=== PATIENT | female | born 1945 | race Caucasian/White ===

== ENCOUNTER → 2018-06-04 08:26 | Outpatient (CLI) | payer MEDICARE, BC, SELFPAY ==
[2018-06-04 09:25] LABS: Add Manual Diff / Slide Review NO; Basophils Percent Auto 0.7 % (0-2); Eosinophils Percent Auto 8.4 % (2-4); Hematocrit 40.7 % (36-46); Lymphocytes Percent Auto 37.2 % (25-40); Mean Corpuscular HGB Conc 34.5 % (30-36); Mean Corpuscular Hemoglobin 30.7 PG (26-34); Mean Corpuscular Volume 89.2 fL (80-100); Monocytes Percent Auto 6.4 % (3-14); Neutrophils Absolute Auto 3500 /uL (3000-5900); Neutrophils Percent Auto 47.3 % (50-75); Platelet Count 284 X10^3/uL (150-400); Red Blood Cell Count 4.57 X10^6/uL (4.0-5.2); Red Cell Distribution Width 13.2 % (11.6-14.8); White Blood Cell Count 7.5 X10^3/uL (4.5-11.0)
[2018-06-04 09:40] LABS: Hemoglobin A1C% w Est Avg Glu 7.7 % (4.0-6.0)
[2018-06-04 09:52] LABS: Alanine Aminotransferase 50 IU/L (9-52); Albumin 4.6 g/dL (3.5-5.0); Albumin Globulin Ratio 1.5 (1.0-2.8); Alkaline Phosphatase 79 U/L (38-126); Aspartate Aminotransferase 34 IU/L (14-36); BUN Creatinine Ratio 22.9 (6-22); Bilirubin Total 0.6 mg/dL (0.2-1.3); Blood Urea Nitrogen 16 mg/dL (7-17); Calcium 9.5 mg/dL (8.4-10.2); Carbon Dioxide 26 mmol/L (22-32); Chloride 102 mmol/L (98-107); Cholesterol 213 mg/dL (140-199); Estimated Glomerular Filt Rate > 60.0 mL/min (>60); Glucose 155 mg/dL (80-110); HDL Cholesterol 48 mg/dL (40-60); HEMOLYSIS 20 (0-50); LDL Cholesterol Calculated 111 mg/dL (<100); Potassium 4.1 mmol/L (3.4-5.1); Sodium 140 mmol/L (137-145); Total Protein 7.6 g/dL (6.3-8.2); Triglycerides 272 mg/dL (35-150)
[2018-06-04 10:16] LABS: Thyroid Stimulating Hormone 3.13 uIU/mL (0.47-4.68)
[2018-06-04 11:21] LABS: Microalbumin Urine Random 2.4 mg/dL (0-1.6)
[2018-06-04 11:22] LABS: Creatinine Urine Random 129 mg/dL; Microalbumi Creatinin Ratio Ur 18.6 ug/mg CR (<30)
== END ==
PROVIDERS: PCP Family Medicine; Visit Provider Family Medicine
DX: I10 Essential (primary) hypertension (principal); E78.00 Pure hypercholesterolemia, unspecified; E11.9 Type 2 diabetes mellitus without complications; E03.9 Hypothyroidism, unspecified
CPT/HCPCS: 36415; 80053; 80061; 82043; 82570; 83036; 84436; 84443; 85025

== ENCOUNTER → 2018-09-09 10:06 | Outpatient (CLI) | payer MEDICARE, BC, SELFPAY ==
[2018-09-09 11:09] LABS: Add Manual Diff / Slide Review NO; Basophils Percent Auto 0.6 % (0-2); Eosinophils Percent Auto 4.5 % (2-4); Hematocrit 42.7 % (36-46); Hemoglobin 14.5 g/dL (12.0-16.0); Lymphocytes Percent Auto 18.2 % (25-40); Mean Corpuscular HGB Conc 33.9 % (30-36); Mean Corpuscular Hemoglobin 30.2 PG (26-34); Mean Corpuscular Volume 89.2 fL (80-100); Monocytes Percent Auto 6.1 % (3-14); Neutrophils Absolute Auto 8400 /uL (3000-5900); Neutrophils Percent Auto 70.6 % (50-75); Platelet Count 263 X10^3/uL (150-400); Red Blood Cell Count 4.79 X10^6/uL (4.0-5.2); Red Cell Distribution Width 12.9 % (11.6-14.8); White Blood Cell Count 11.9 X10^3/uL (4.5-11.0)
[2018-09-09 11:28] LABS: Alanine Aminotransferase 30 IU/L (9-52); Albumin 4.6 g/dL (3.5-5.0); Albumin Globulin Ratio 1.8 (1.0-2.8); Alkaline Phosphatase 85 U/L (38-126); Aspartate Aminotransferase 21 IU/L (14-36); BUN Creatinine Ratio 25.7 (6-22); Bilirubin Total 0.5 mg/dL (0.2-1.3); Bilirubin Unconjugated 0.3 mg/dL (0.0-1.1); Blood Urea Nitrogen 18 mg/dL (7-17); Calcium 9.9 mg/dL (8.4-10.2); Carbon Dioxide 31 mmol/L (22-32); Chloride 99 mmol/L (98-107); Estimated Glomerular Filt Rate > 60.0 mL/min (>60); Globulin 2.6 g/dL (1.7-4.1); Glucose 121 mg/dL (80-110); HEMOLYSIS < 15 (0-50); Potassium 4.2 mmol/L (3.4-5.1); Sodium 139 mmol/L (137-145); Total Protein 7.2 g/dL (6.3-8.2)
== END ==
PROVIDERS: PCP Student in an Organized Health Care Education/Training Program; Visit Provider Podiatrist
DX: B35.1 Tinea unguium (principal)
CPT/HCPCS: 36415; 80048; 80076; 85025

== ENCOUNTER → 2018-09-13 09:14 | Outpatient (CLI) | payer MEDICARE, BC, SELFPAY ==
--- NOTE | 2018-09-13 09:19 | DI.US.S_ITS ---
ULTRASOUND OF LEFT BREAST: 09/13/2018 CLINICAL: Palpable left breast lump. Comparison is made to exams dated: 09/13/2018 mammogram, 09/13/2018 mammogram - [facility], 05/29/2016 mammogram, and 03/09/2015 mammogram - [facility] [place]. Color flow and real-time ultrasound of the left breast were performed on the areas of interest. Pack scale images of the real-time examination were reviewed. There is a round mass in the left breast at 10 o'clock posterior depth. This round mass is hypoechoic with posterior acoustic enhancement. This correlates as palpated and with mammography findings. IMPRESSION: BENIGN There is no sonographic evidence of malignancy. The round mass in the left breast is consistent with a sebaceous cyst and is benign. A 1 year screening mammogram is recommended. This exam was interpreted at Station ID: [id number]. Electronically Signed By: Isabel quiñones/:09/13/2018 13:09:18 letter sent: Normal Exam Ultrasound BI-RADS: 2 Benign
--- NOTE | 2018-09-13 09:19 | DI.MG.S_ITS ---
BILATERAL DIGITAL DIAGNOSTIC MAMMOGRAM 3D/2D: 09/13/2018 CLINICAL: Left breast mass. Comparison is made to exams dated: 05/29/2016 mammogram, 03/09/2015 mammogram, and 12/22/2014 mammogram - [facility]. There are scattered fibroglandular elements in both breasts. There is a round high density mass in the left breast at 10 o'clock posterior depth. This correlates as palpated. No other significant masses, calcifications, or other findings are seen in either breast. IMPRESSION: INCOMPLETE: NEEDS ADDITIONAL IMAGING EVALUATION The round high density mass in the left breast is indeterminate. An ultrasound is recommended. This exam was interpreted at Station ID: [id number]. NOTE: For mammograms, a report in lay terms will be sent to the patient. Approximately 15% of breast malignancies will not be visualized mammographically. In the management of a palpable breast mass, a negative mammogram must not discourage biopsy of a clinically suspicious lesion. Electronically Signed By: Isabel quiñones/nara:09/13/2018 10:03:23 letter sent: Additional Imaging Needed ACR BI-RADS Category 0: Incomplete 3340F
== END ==
PROVIDERS: PCP Student in an Organized Health Care Education/Training Program; Visit Provider Student in an Organized Health Care Education/Training Program
DX: R92.8 Other abnormal and inconclusive findings on diagnostic imaging of breast (principal); N60.82 Other benign mammary dysplasias of left breast
CPT/HCPCS: 76642; 77066; G0279

== ENCOUNTER → 2018-12-01 07:21 | Outpatient (CLI) | payer MEDICARE, SELFPAY ==
[2018-12-01 08:25] LABS: BUN Creatinine Ratio 28.6 (6-22); Blood Urea Nitrogen 20 mg/dL (7-17); Calcium 9.6 mg/dL (8.4-10.2); Carbon Dioxide 27 mmol/L (22-32); Chloride 100 mmol/L (98-107); Cholesterol 191 mg/dL (140-199); Estimated Glomerular Filt Rate > 60.0 mL/min (>60); Glucose 160 mg/dL (80-110); HDL Cholesterol 38 mg/dL (40-60); HEMOLYSIS < 15 (0-50); LDL Cholesterol Calculated 96 mg/dL (<100); Potassium 4.1 mmol/L (3.4-5.1); Sodium 139 mmol/L (137-145); Triglycerides 284 mg/dL (35-150)
[2018-12-01 08:28] LABS: Hemoglobin A1C% w Est Avg Glu 7.7 % (4.0-6.0)
[2018-12-01 08:57] LABS: Free T4, Direct Thyroxine 1.84 ng/dL (0.78-2.19); Vitamin D 25 Hydroxy (D3) 22.2 ng/mL (30.0-100.0)
[2018-12-01 09:11] LABS: Thyroid Stimulating Hormone 0.29 uIU/mL (0.47-4.68)
== END ==
PROVIDERS: PCP Student in an Organized Health Care Education/Training Program; Visit Provider Student in an Organized Health Care Education/Training Program
DX: E11.9 Type 2 diabetes mellitus without complications (principal); I10 Essential (primary) hypertension; E78.5 Hyperlipidemia, unspecified; E55.9 Vitamin D deficiency, unspecified; E03.9 Hypothyroidism, unspecified
CPT/HCPCS: 36415; 80048; 80061; 82306; 83036; 84439; 84443

== ENCOUNTER → 2019-03-03 09:30 | Outpatient (CLI) | payer MEDICARE, BC, SELFPAY | PROVIDERS: PCP Student in an Organized Health Care Education/Training Program; Visit Provider Student in an Organized Health Care Education/Training Program | DX: Z00.00 Encounter for general adult medical examination without abnormal findings (principal); Z78.0 Asymptomatic menopausal state; E11.9 Type 2 diabetes mellitus without complications; E06.3 Autoimmune thyroiditis; Z82.62 Family history of osteoporosis | CPT/HCPCS: 77080 ==

== ENCOUNTER → 2019-04-07 07:25 | Outpatient (CLI) | payer MEDICARE, BC, SELFPAY ==
[2019-04-07 09:02] LABS: Hemoglobin A1C% w Est Avg Glu 6.9 % (4.0-6.0)
[2019-04-07 09:17] LABS: Creatinine Urine Random 131.5 mg/dL
[2019-04-07 09:22] LABS: Microalbumi Creatinin Ratio Ur 20.5 ug/mg CR (<30); Microalbumin Urine Random 2.7 mg/dL (0-1.6)
[2019-04-07 09:23] LABS: Free T4, Direct Thyroxine 1.71 ng/dL (0.78-2.19)
[2019-04-07 09:37] LABS: Thyroid Stimulating Hormone 1.11 uIU/mL (0.47-4.68)
== END ==
PROVIDERS: PCP Student in an Organized Health Care Education/Training Program; Visit Provider Student in an Organized Health Care Education/Training Program
DX: E11.9 Type 2 diabetes mellitus without complications (principal); E03.9 Hypothyroidism, unspecified
CPT/HCPCS: 36415; 82043; 82570; 83036; 84439; 84443

== ENCOUNTER → 2019-10-07 07:35 | Outpatient (CLI) | payer MEDICARE, SELFPAY ==
--- NOTE | 2019-10-07 | DI.MG.S_ITS ---
BILATERAL DIGITAL SCREENING MAMMOGRAM 3D/2D WITH CAD: 10/07/2019 CLINICAL: Routine screening. Comparison is made to exams dated: 09/13/2018 mammogram, 09/13/2018 mammogram - [facility], and 05/29/2016 mammogram - [facility]. There are scattered fibroglandular elements in both breasts. Current study was also evaluated with a Computer Aided Detection (CAD) system. No significant masses, calcifications, or other findings are seen in either breast. There has been no significant interval change. IMPRESSION: NEGATIVE There is no mammographic evidence of malignancy. A 1 year screening mammogram is recommended. This exam was interpreted at Station ID: [id number]. NOTE: For mammograms, a report in lay terms will be sent to the patient. Approximately 15% of breast malignancies will not be visualized mammographically. In the management of a palpable breast mass, a negative mammogram must not discourage biopsy of a clinically suspicious lesion. Electronically Signed By: Camille ortiz/nara:10/07/2019 13:03:24 letter sent: Normal Exam ACR BI-RADS Category 1: Negative 3341F
== END ==
PROVIDERS: PCP Student in an Organized Health Care Education/Training Program; Visit Provider Student in an Organized Health Care Education/Training Program
DX: Z12.31 Encounter for screening mammogram for malignant neoplasm of breast (principal)
CPT/HCPCS: 77063; 77067

== ENCOUNTER → 2019-10-11 07:50 | Outpatient (CLI) | payer MEDICARE, SELFPAY ==
[2019-10-11 08:35] LABS: Hemoglobin A1C% w Est Avg Glu 7.4 % (4.0-6.0)
== END ==
PROVIDERS: PCP Student in an Organized Health Care Education/Training Program; Visit Provider Student in an Organized Health Care Education/Training Program
DX: E11.9 Type 2 diabetes mellitus without complications (principal)
CPT/HCPCS: 36415; 83036

== ENCOUNTER → 2020-03-19 07:35 | Outpatient (CLI) | payer MEDICARE, SELFPAY ==
[2020-03-19 09:34] LABS: Hemoglobin A1C% w Est Avg Glu 7.5 % (4.0-6.0)
[2020-03-19 10:26] LABS: TSH w/ Reflex to FT4 2.45 uIU/mL (0.47-4.68)
[2020-03-19 10:44] LABS: Vitamin B12 443 pg/mL (239-931)
== END ==
PROVIDERS: PCP Student in an Organized Health Care Education/Training Program; Referring Provider Student in an Organized Health Care Education/Training Program; Visit Provider Student in an Organized Health Care Education/Training Program
DX: E03.9 Hypothyroidism, unspecified (principal); E11.9 Type 2 diabetes mellitus without complications
CPT/HCPCS: 36415; 82607; 83036; 84443

== ENCOUNTER → 2020-04-03 13:38 | Outpatient (CLI) | payer MEDICARE, SELFPAY ==
[2020-04-05 17:52] LABS: COVID19 Sendout Not Detected (Not Detected)
== END ==
PROVIDERS: PCP Student in an Organized Health Care Education/Training Program; Visit Provider Family Medicine
DX: R05 Cough (principal)
CPT/HCPCS: 87635

== ENCOUNTER → 2020-07-12 13:24 | Outpatient (CLI) | payer MEDICARE, SELFPAY ==
[2020-07-12 14:36] LABS: Hemoglobin A1C% w Est Avg Glu 6.7 % (4.0-6.0)
== END ==
PROVIDERS: PCP Student in an Organized Health Care Education/Training Program; Referring Provider Student in an Organized Health Care Education/Training Program; Visit Provider Student in an Organized Health Care Education/Training Program
DX: E11.9 Type 2 diabetes mellitus without complications (principal)
CPT/HCPCS: 36415; 83036

== ENCOUNTER → 2020-11-14 11:12 | Outpatient (CLI) | payer MEDICARE, SELFPAY ==
--- NOTE | 2020-11-14 | DI.MG.S_ITS ---
BILATERAL DIGITAL SCREENING MAMMOGRAM 3D/2D WITH CAD: 11/14/2020 CLINICAL: Routine screening. Comparison is made to exams dated: 10/07/2019 mammogram, 09/13/2018 mammogram, and 09/13/2018 mammogram - [facility]. There are scattered fibroglandular elements in both breasts. Current study was also evaluated with a Computer Aided Detection (CAD) system. No significant masses, calcifications, or other findings are seen in either breast. There has been no significant interval change. IMPRESSION: NEGATIVE There is no mammographic evidence of malignancy. A 1 year screening mammogram is recommended. This exam was interpreted at Station ID: [id number]. NOTE: For mammograms, a report in lay terms will be sent to the patient. Approximately 15% of breast malignancies will not be visualized mammographically. In the management of a palpable breast mass, a negative mammogram must not discourage biopsy of a clinically suspicious lesion. Electronically Signed By: Humble choudhary/nara:11/14/2020 11:47:24 letter sent: Normal Exam ACR BI-RADS Category 1: Negative 3341F
== END ==
PROVIDERS: PCP Student in an Organized Health Care Education/Training Program; Referring Provider Student in an Organized Health Care Education/Training Program; Visit Provider Student in an Organized Health Care Education/Training Program
DX: Z12.31 Encounter for screening mammogram for malignant neoplasm of breast (principal)
CPT/HCPCS: 77063; 77067

== ENCOUNTER → 2021-01-29 07:53 | Outpatient (CLI) | payer MEDICARE, SELFPAY ==
[2021-01-29 08:49] LABS: Creatinine Urine Random 93.9 mg/dL
[2021-01-29 08:54] LABS: Microalbumi Creatinin Ratio Ur 60.7 ug/mg CR (<30); Microalbumin Urine Random 5.7 mg/dL (0-1.6)
[2021-01-29 08:59] LABS: Hemoglobin A1C% w Est Avg Glu 7.3 % (4.0-6.0)
[2021-01-29 09:02] LABS: BUN Creatinine Ratio 33.3 (6-22); Blood Urea Nitrogen 23 mg/dL (7-17); Calcium 9.9 mg/dL (8.4-10.2); Carbon Dioxide 28 mmol/L (22-32); Chloride 102 mmol/L (98-107); Estimated Glomerular Filt Rate > 60.0 mL/min (>60); Glucose 114 mg/dL (80-110); HEMOLYSIS 37 (0-50); Potassium 4.4 mmol/L (3.4-5.1); Sodium 136 mmol/L (137-145)
[2021-01-29 09:05] LABS: Vitamin D 25 Hydroxy (D3) 29.9 ng/mL (30.0-100.0)
== END ==
PROVIDERS: PCP Student in an Organized Health Care Education/Training Program; Referring Provider Student in an Organized Health Care Education/Training Program; Visit Provider Student in an Organized Health Care Education/Training Program
DX: E55.9 Vitamin D deficiency, unspecified (principal); E11.9 Type 2 diabetes mellitus without complications; I10 Essential (primary) hypertension
CPT/HCPCS: 36415; 80048; 82043; 82306; 82570; 83036

== ENCOUNTER → 2021-03-01 07:17 | Outpatient (CLI) | payer MEDICARE, SELFPAY ==
[2021-03-01 08:44] LABS: Creatinine Urine Random 60.1 mg/dL
[2021-03-01 08:48] LABS: Microalbumi Creatinin Ratio Ur 113.1 ug/mg CR (<30); Microalbumin Urine Random 6.8 mg/dL (0-1.6)
== END ==
PROVIDERS: PCP Student in an Organized Health Care Education/Training Program; Referring Provider Student in an Organized Health Care Education/Training Program; Visit Provider Student in an Organized Health Care Education/Training Program
DX: E11.9 Type 2 diabetes mellitus without complications (principal)
CPT/HCPCS: 82043; 82570

== ENCOUNTER → 2021-08-08 07:28 | Outpatient (CLI) | payer MEDICARE, SELFPAY ==
[2021-08-08 09:02] LABS: BUN Creatinine Ratio 29.7 (6-22); Blood Urea Nitrogen 22 mg/dL (7-17); Estimated Glomerular Filt Rate > 60.0 mL/min (>60)
[2021-08-08 09:15] LABS: Hemoglobin A1C% w Est Avg Glu 6.8 % (4.0-6.0)
== END ==
PROVIDERS: PCP Student in an Organized Health Care Education/Training Program; Referring Provider Student in an Organized Health Care Education/Training Program; Visit Provider Student in an Organized Health Care Education/Training Program
DX: E11.9 Type 2 diabetes mellitus without complications (principal); R80.9 Proteinuria, unspecified
CPT/HCPCS: 36415; 82565; 83036; 84520

== ENCOUNTER → 2021-10-30 07:02 | Outpatient (CLI) | payer MEDICARE, SELFPAY ==
[2021-10-30 08:27] LABS: Hemoglobin A1C% w Est Avg Glu 6.5 % (4.0-6.0)
[2021-10-30 09:07] LABS: Creatinine Urine Random 120.1 mg/dL
[2021-10-30 09:09] LABS: BUN Creatinine Ratio 24.7 (6-22); Blood Urea Nitrogen 19 mg/dL (7-17); Cholesterol 209 mg/dL (140-199); Estimated Glomerular Filt Rate > 60.0 mL/min (>60); HDL Cholesterol 47 mg/dL (40-60); LDL Cholesterol Calculated 110 mg/dL (<100); Triglycerides 262 mg/dL (35-150)
[2021-10-30 09:12] LABS: Microalbumi Creatinin Ratio Ur 137.3 ug/mg CR (<30); Microalbumin Urine Random 16.5 mg/dL (0-1.6)
== END ==
PROVIDERS: PCP Student in an Organized Health Care Education/Training Program; Referring Provider Student in an Organized Health Care Education/Training Program; Visit Provider Student in an Organized Health Care Education/Training Program
DX: E11.9 Type 2 diabetes mellitus without complications (principal); I10 Essential (primary) hypertension; E78.00 Pure hypercholesterolemia, unspecified
CPT/HCPCS: 36415; 80061; 82043; 82565; 82570; 83036; 84520

== ENCOUNTER → 2021-11-20 12:16 | Outpatient (CLI) | payer MEDICARE, SELFPAY ==
--- NOTE | 2021-11-20 12:17 | DI.MG.S_ITS ---
BILATERAL DIGITAL SCREENING MAMMOGRAM 3D/2D WITH CAD: 11/20/2021 CLINICAL: Routine screening. Comparison is made to exams dated: 11/14/2020 mammogram, 10/07/2019 mammogram, and 09/13/2018 mammogram - [facility]. There are scattered fibroglandular elements in both breasts. Current study was also evaluated with a Computer Aided Detection (CAD) system. No significant masses, calcifications, or other findings are seen in either breast. There has been no significant interval change. IMPRESSION: NEGATIVE There is no mammographic evidence of malignancy. A 1 year screening mammogram is recommended. This exam was interpreted at Station ID: [id number]. NOTE: For mammograms, a report in lay terms will be sent to the patient. Approximately 15% of breast malignancies will not be visualized mammographically. In the management of a palpable breast mass, a negative mammogram must not discourage biopsy of a clinically suspicious lesion. Electronically Signed By: Huang Moser M.D., jr/nara:11/20/2021 13:24:22 letter sent: Normal Exam ACR BI-RADS Category 1: Negative 3341F
== END ==
PROVIDERS: PCP Student in an Organized Health Care Education/Training Program; Referring Provider Student in an Organized Health Care Education/Training Program; Visit Provider Student in an Organized Health Care Education/Training Program
DX: Z12.31 Encounter for screening mammogram for malignant neoplasm of breast (principal)
CPT/HCPCS: 77063; 77067

== ENCOUNTER → 2022-05-09 06:49 | Outpatient (CLI) | payer MEDICARE, SELFPAY ==
[2022-05-09 07:49] LABS: Hemoglobin A1C% w Est Avg Glu 7.4 % (4.0-6.0)
[2022-05-09 07:53] LABS: Blood Urea Nitrogen 15 mg/dL (7-17); Estimated Glomerular Filt Rate > 60 mL/min (>60)
== END ==
PROVIDERS: PCP Student in an Organized Health Care Education/Training Program; Referring Provider Student in an Organized Health Care Education/Training Program; Visit Provider Student in an Organized Health Care Education/Training Program
DX: E11.9 Type 2 diabetes mellitus without complications (principal); I10 Essential (primary) hypertension; R80.9 Proteinuria, unspecified
CPT/HCPCS: 36415; 82565; 83036; 84520

== ENCOUNTER → 2022-07-30 14:55 | Outpatient (CLI) | payer MEDICARE, SELFPAY ==
[2022-07-30 16:18] LABS: Hemoglobin A1C% w Est Avg Glu 7.5 % (4.0-6.0)
[2022-07-30 16:49] LABS: TSH w/ Reflex to FT4 0.28 uIU/mL (0.47-4.68)
[2022-07-30 18:28] LABS: Creatinine Urine Random 111.4 mg/dL
[2022-07-30 18:30] LABS: Microalbumi Creatinin Ratio Ur 52.9 ug/mg CR (<30); Microalbumin Urine Random 5.9 mg/dL (0-1.6)
[2022-07-30 21:02] LABS: Free T4, Direct Thyroxine 1.58 ng/dL (0.78-2.19)
== END ==
PROVIDERS: PCP Student in an Organized Health Care Education/Training Program; Referring Provider Student in an Organized Health Care Education/Training Program; Visit Provider Student in an Organized Health Care Education/Training Program
DX: E11.9 Type 2 diabetes mellitus without complications (principal); E03.9 Hypothyroidism, unspecified; R80.9 Proteinuria, unspecified
CPT/HCPCS: 36415; 82043; 82570; 83036; 84439; 84443

== ENCOUNTER → 2022-09-25 08:57 | Outpatient (CLI) | payer MEDICARE, SELFPAY ==
[2022-09-25 10:54] LABS: Hemoglobin A1C% w Est Avg Glu 7.2 % (4.0-6.0)
[2022-09-25 10:55] LABS: BUN Creatinine Ratio 21.7 (6-22); Blood Urea Nitrogen 18 mg/dL (7-17); Estimated Glomerular Filt Rate > 60 mL/min (>60)
== END ==
PROVIDERS: PCP Student in an Organized Health Care Education/Training Program; Referring Provider Student in an Organized Health Care Education/Training Program; Visit Provider Student in an Organized Health Care Education/Training Program
DX: E11.9 Type 2 diabetes mellitus without complications (principal); R80.9 Proteinuria, unspecified
CPT/HCPCS: 36415; 82565; 83036; 84520

== ENCOUNTER → 2022-12-08 07:54 | Outpatient (CLI) | payer MEDICARE, SELFPAY ==
--- NOTE | 2022-12-08 | DI.MG.S_ITS ---
BILATERAL DIGITAL SCREENING MAMMOGRAM 3D/2D WITH CAD: 12/08/2022 CLINICAL: Routine screening. Comparison is made to exams dated: 11/20/2021 mammogram, 11/14/2020 mammogram, and 10/07/2019 mammogram - [facility]. There are scattered areas of fibroglandular density in both breasts (category b / 25%-50% glandular tissue). Current study was also evaluated with a Computer Aided Detection (CAD) system. No significant masses, calcifications, or other findings are seen in either breast. There has been no significant interval change. IMPRESSION: NEGATIVE There is no mammographic evidence of malignancy. A 1 year screening mammogram is recommended. Based on the Tyrer Cuzick model (a risk assessment model) the patient's lifetime risk is 3.6% and her 10 year risk is 0.0%. According to the ACR, ACS, and NCCN guidelines, an annual breast MRI exam along with mammogram is recommended if the patient's lifetime risk is 20% or greater. This exam was interpreted at Station ID: [id number]. NOTE: For mammograms, a report in lay terms will be sent to the patient. Approximately 15% of breast malignancies will not be visualized mammographically. In the management of a palpable breast mass, a negative mammogram must not discourage biopsy of a clinically suspicious lesion. Electronically Signed By: Carlos das/nara:12/08/2022 10:58:23 letter sent: Normal Exam ACR BI-RADS Category 1: Negative 3341F
== END ==
PROVIDERS: PCP Student in an Organized Health Care Education/Training Program; Referring Provider Student in an Organized Health Care Education/Training Program; Visit Provider Student in an Organized Health Care Education/Training Program
DX: Z12.31 Encounter for screening mammogram for malignant neoplasm of breast (principal)
CPT/HCPCS: 77063; 77067

== ENCOUNTER → 2023-01-15 11:13 | Outpatient (CLI) | payer MEDICARE, SELFPAY ==
--- NOTE | 2023-01-15 11:14 | DI.RAD.S_ITS ---
PROCEDURE: XR CHEST 2V INDICATIONS: Persistent cough; post-covid TECHNIQUE: 2 views of the chest were acquired. COMPARISON: None. FINDINGS: Surgical changes and devices: None. Lungs and pleura: Lungs are clear. No pleural effusions or pneumothorax. Mediastinum: Mediastinal contours are normal. Heart size is normal. Bones and chest wall: No suspicious bony abnormalities. Soft tissues appear unremarkable. IMPRESSION: No acute cardiopulmonary pathology. Dictated by: Victorino Barnett M.D. on 01/15/2023 at 13:51 Approved by: Victorino Barnett M.D. on 01/15/2023 at 13:54
== END ==
PROVIDERS: PCP Student in an Organized Health Care Education/Training Program; Referring Provider Student in an Organized Health Care Education/Training Program; Visit Provider Student in an Organized Health Care Education/Training Program
DX: R05.9 Cough, unspecified (principal); Z86.16 Personal history of COVID-19
CPT/HCPCS: 71046

== ENCOUNTER → 2023-02-24 07:06 | Outpatient (CLI) | payer MEDICARE, SELFPAY ==
[2023-02-24 08:43] LABS: Blood Urea Nitrogen 20 mg/dL (7-17); Estimated Glomerular Filt Rate > 60 mL/min (>60)
== END ==
PROVIDERS: PCP Student in an Organized Health Care Education/Training Program; Referring Provider Student in an Organized Health Care Education/Training Program; Visit Provider Student in an Organized Health Care Education/Training Program
DX: R80.9 Proteinuria, unspecified (principal); E11.9 Type 2 diabetes mellitus without complications
CPT/HCPCS: 36415; 82565; 83036; 84520

== ENCOUNTER → 2023-02-27 | Outpatient (CLI) | payer MEDICARE, SELFPAY ==
--- NOTE | 2023-02-17 12:33 | DI.DEXA.S_ITS ---
Indication: postmenopausal; screening for osteoporosis; Referring Provider: CHELY AMBRIZ Study: Bone densitometry was performed. Exam Date: February 27, 2023 Accession number: [id number] Bone Density: Region BMD T-score Z-score Classification AP Spine(L1-L4) 1.092 0.4 2.9 Normal Femoral Neck (Left) 0.781 -0.6 1.6 Normal Total Hip (Left) 0.947 0.0 1.9 Normal Femoral Neck (Right) 0.761 -0.8 1.4 Normal Total Hip (Right) 0.902 -0.3 1.6 Normal Total Hip Mean 0.925 -0.2 1.8 Normal World Health Organization criteria for BMD impression classify patients as: Normal (T-score at or above -1.0), Osteopenia (T-score between -1.0 and -2.5), or Osteoporosis (T-score at or below -2.5). 10-year Fracture Risk: FRAX not reported because: All T-scores for Spine Total, Hip Total, Femoral Neck at or above -1.0 Previous Exams: -- Region Exam Age BMD T-score BMD Change BMD Change Date g/cm2 vs Baseline vs Previous -- AP Spine (L1-L4) 02/27/2023 78 1.092 0.4 -0.094 (-7.9%)# -0.094 (-7.9%)# 03/03/2019 74 1.186 1.3 Total Hip(Left) 02/27/2023 78 0.947 0.0 -0.085 (-8.2%)# -0.085 (-8.2%)# 03/03/2019 74 1.032 0.7 Total Hip(Right) 02/27/2023 78 0.902 -0.3 -0.102 (-10.2%)# -0.102 (-10.2%)# 03/03/2019 74 1.004 0.5 -- *Denotes significance at 95% confidence level, LSC for AP Spine = 0.022 g/cm2, LSC for Total Hip = 0.027 g/cm2 # Denotes dissimilar scan types or analysis methods Impression: The patient has normal bone mass. No significant bone loss was observed. Discussion: BONE DENSITY IS ABOVE THE MINIMUM DESIRABLE LEVEL AT ALL SKELETAL SITES TESTED. This patient?s bone mineral density is above the minimum desirable level (T-score -1.0 or better) at all sites measured. The patient should follow a healthful lifestyle (good nutrition with adequate calcium and vitamin D, and appropriate weight-bearing exercise). Follow-Up: Consider repeating this study in 5 years or sooner if there is some new clinical indication. Reported by: HOOD WESTON M.D. on 02/27/2023 12:53:00 PM.
== END ==
LOC: RAD 12:20
PROVIDERS: PCP Student in an Organized Health Care Education/Training Program; Referring Provider Student in an Organized Health Care Education/Training Program; Visit Provider Student in an Organized Health Care Education/Training Program
DX: Z78.0 Asymptomatic menopausal state (principal); Z13.820 Encounter for screening for osteoporosis
CPT/HCPCS: 77080

== ENCOUNTER → 2023-08-27 14:19 | Outpatient (CLI) | payer MEDICARE, SELFPAY ==
[2023-08-27 15:36] LABS: Hemoglobin A1C% w Est Avg Glu 7.2 % (4.0-6.0)
[2023-08-27 15:50] LABS: Alanine Aminotransferase 33 IU/L (<35); Albumin 4.6 g/dL (3.5-5.0); Albumin Globulin Ratio 1.8 (1.0-2.8); Alkaline Phosphatase 86 U/L (38-126); Aspartate Aminotransferase 25 IU/L (14-36); BUN Creatinine Ratio 26.1 (6-22); Bilirubin Total 0.4 mg/dL (0.2-1.3); Blood Urea Nitrogen 23 mg/dL (7-17); Calcium 10.1 mg/dL (8.4-10.2); Carbon Dioxide 25 mmol/L (22-32); Chloride 100 mmol/L (98-107); Cholesterol 212 mg/dL (140-199); Estimated Glomerular Filt Rate > 60 mL/min (>60); Globulin 2.6 g/dL (1.7-4.1); Glucose 97 mg/dL (80-110); HDL Cholesterol 44 mg/dL (40-60); HEMOLYSIS < 15 (0-50); LDL Cholesterol Calculated 106 mg/dL (<100); Potassium 4.3 mmol/L (3.4-5.1); Sodium 137 mmol/L (137-145); Total Protein 7.2 g/dL (6.3-8.2); Triglycerides 310 mg/dL (35-150)
[2023-08-27 16:02] LABS: Free T4, Direct Thyroxine 1.46 ng/dL (0.78-2.19)
[2023-08-27 16:16] LABS: Thyroid Stimulating Hormone 0.089 uIU/mL (0.47-4.68)
[2023-08-27 17:30] LABS: Creatinine Urine Random 82.5 mg/dL
[2023-08-27 17:34] LABS: Microalbumi Creatinin Ratio Ur 16.9 ug/mg CR (<30); Microalbumin Urine Random 1.4 mg/dL (0-1.6)
== END ==
PROVIDERS: PCP Family Medicine; Referring Provider Student in an Organized Health Care Education/Training Program; Visit Provider Student in an Organized Health Care Education/Training Program
DX: E11.9 Type 2 diabetes mellitus without complications (principal); E78.00 Pure hypercholesterolemia, unspecified; I10 Essential (primary) hypertension; R80.9 Proteinuria, unspecified; E03.9 Hypothyroidism, unspecified
CPT/HCPCS: 36415; 80053; 80061; 82043; 82570; 83036; 84439; 84443

== ENCOUNTER → 2023-12-11 13:13 | Outpatient (CLI) | payer MEDICARE, SELFPAY ==
--- NOTE | 2023-12-11 13:15 | DI.MG.S_ITS ---
BILATERAL DIGITAL SCREENING MAMMOGRAM 3D/2D WITH CAD: 12/11/2023 CLINICAL: Routine screening. Comparison is made to exams dated: 12/08/2022 mammogram, 11/20/2021 mammogram, 11/14/2020 mammogram, and 10/07/2019 mammogram - [facility]. There are scattered areas of fibroglandular density in both breasts (category b / 25%-50% glandular tissue). Current study was also evaluated with a Computer Aided Detection (CAD) system. No significant masses, calcifications, or other findings are seen in either breast. There has been no significant interval change. IMPRESSION: NEGATIVE There is no mammographic evidence of malignancy. A 1 year screening mammogram is recommended. Based on the Tyrer Cuzick model (a risk assessment model) the patient's lifetime risk is 3.3% and her 10 year risk is 0.0%. According to the ACR, ACS, and NCCN guidelines, an annual breast MRI exam along with mammogram is recommended if the patient's lifetime risk is 20% or greater. This exam was interpreted at Station ID: [id number]. NOTE: For mammograms, a report in lay terms will be sent to the patient. Approximately 15% of breast malignancies will not be visualized mammographically. In the management of a palpable breast mass, a negative mammogram must not discourage biopsy of a clinically suspicious lesion. Electronically Signed By: Jack baker/nara:12/11/2023 16:54:36 letter sent: Normal Exam ACR BI-RADS Category 1: Negative 3341F
== END ==
LOC: MAMMO 13:13
PROVIDERS: PCP Family Medicine; Referring Provider Family Medicine; Visit Provider Family Medicine
DX: Z12.31 Encounter for screening mammogram for malignant neoplasm of breast (principal); R92.323 Mammographic fibroglandular density, bilateral breasts
CPT/HCPCS: 77063; 77067

== ENCOUNTER → 2024-03-04 06:45 | Outpatient (CLI) | payer MEDICARE, SELFPAY ==
[2024-03-04 07:53] LABS: Add Manual Diff / Slide Review NO; Basophils Absolute Auto 100 /uL (0-100); Basophils Percent Auto 0.8 % (0-2); Eosinophils Absolute Auto 300 /uL (0-450); Eosinophils Percent Auto 4.6 % (2-4); Hematocrit 39.9 % (36-46); Hemoglobin 13.4 g/dL (12.0-16.0); Lymphocytes Absolute Auto 2100 /uL (1100-4500); Lymphocytes Percent Auto 28.2 % (25-40); Mean Corpuscular HGB Conc 33.7 % (30-36); Mean Corpuscular Hemoglobin 30.4 PG (26-34); Mean Corpuscular Volume 90.1 fL (80-100); Monocytes Absolute Auto 600 /uL (0-900); Monocytes Percent Auto 8.1 % (3-14); Neutrophils Absolute Auto 4300 /uL (1500-7000); Neutrophils Percent Auto 58.3 % (50-75); Platelet Count 280 X10^3/uL (150-400); Red Blood Cell Count 4.42 X10^6/uL (4.0-5.2); Red Cell Distribution Width 13.2 % (11.6-14.8); White Blood Cell Count 7.5 X10^3/uL (4.5-11.0)
[2024-03-04 08:17] LABS: Creatinine Urine Random 111.1 mg/dL
[2024-03-04 08:17] LABS: Alanine Aminotransferase 28 IU/L (<35); Albumin 4.3 g/dL (3.5-5.0); Albumin Globulin Ratio 1.5 (1.0-2.8); Alkaline Phosphatase 69 U/L (38-126); Aspartate Aminotransferase 27 IU/L (14-36); Bilirubin Total 0.7 mg/dL (0.2-1.3); Blood Urea Nitrogen 19 mg/dL (7-17); Calcium 9.4 mg/dL (8.4-10.2); Carbon Dioxide 25 mmol/L (22-32); Chloride 105 mmol/L (98-107); Cholesterol 180 mg/dL (140-199); Estimated Glomerular Filt Rate > 60 mL/min (>60); Globulin 2.9 g/dL (1.7-4.1); Glucose 116 mg/dL (80-110); HDL Cholesterol 41 mg/dL (40-60); HEMOLYSIS 25 (0-50); LDL Cholesterol Calculated 93 mg/dL (<100); Potassium 3.8 mmol/L (3.4-5.1); Sodium 138 mmol/L (137-145); Total Protein 7.2 g/dL (6.3-8.2); Triglycerides 229 mg/dL (35-150)
[2024-03-04 08:35] LABS: Microalbumi Creatinin Ratio Ur 40.5 ug/mg CR (<30); Microalbumin Urine Random 4.5 mg/dL (0-1.6)
[2024-03-04 09:24] LABS: TSH w/ Reflex to FT4 0.02 uIU/mL (0.47-4.68)
== END ==
PROVIDERS: PCP Family Medicine; Referring Provider Family Medicine; Visit Provider Family Medicine
DX: R80.9 Proteinuria, unspecified (principal); E11.9 Type 2 diabetes mellitus without complications; I10 Essential (primary) hypertension; E03.9 Hypothyroidism, unspecified; E78.00 Pure hypercholesterolemia, unspecified
CPT/HCPCS: 36415; 80053; 80061; 82043; 82570; 83036; 84439; 84443; 85025

== ENCOUNTER → 2024-09-24 08:18 | Outpatient (CLI) | payer MEDICARE, SELFPAY ==
[2024-09-24 10:12] LABS: Cholesterol 211 mg/dL (140-199); HDL Cholesterol 45 mg/dL (40-60); LDL Cholesterol Calculated 106 mg/dL (<100); Triglycerides 301 mg/dL (35-150)
[2024-09-24 10:43] LABS: Thyroid Stimulating Hormone 0.067 uIU/mL (0.47-4.68)
== END ==
PROVIDERS: PCP Family Medicine; Referring Provider Family Medicine; Visit Provider Family Medicine
DX: E03.9 Hypothyroidism, unspecified (principal); E78.00 Pure hypercholesterolemia, unspecified; E11.9 Type 2 diabetes mellitus without complications
CPT/HCPCS: 36415; 80061; 84436; 84443

== ENCOUNTER 2024-10-02 10:53 | Emergency (ER) | payer MEDICARE, SELFPAY ==
[2024-10-02 11:04] VITALS: BP 148/65; PULSE 57; RESP 17; TEMP 36.7; O2SAT 95; BMI 28.3
[2024-10-02] MEDS: ONDANSETRON 4 MG ODT SL (11:11)
[2024-10-02 11:32] LABS: Bacteria Urine Many (>30); RBC Urine 5-10/HPF (0-5/HPF); Urine Volume 10mL (spun); WBC Urine >100/HPF (0-5/HPF)
[2024-10-02 11:33] LABS: Culture Indicated Urine Specimen Cultured; Squamous Epithelial Cell Urine None Seen (0-5/HPF)
--- NOTE | 2024-10-02 11:44 | ED.BACK ---
HPI - Back Pain/Injury <Tari Jaimes PA-C - Last Filed: 10/02/24 19:38> General Chief Complaint: Back Pain/Injury Stated Complaint: back hurting so bad its making her throw up Time Seen by Provider: 10/02/24 11:43 Source: patient History of Present Illness HPI Narrative: Ms. Yi is a pleasant 79-year-old female with a past medical history of vhh-zvypuoa-sufquwojo type 2 diabetes, hypertension, hyperlipidemia, hypothyroidism who presents to the emergency department for right-sided flank pain since this morning. She is concerned for a bladder or kidney infection. Denies similar pain in the past. Describes right-sided flank pain that is constant and severe. She feels nauseous and has vomitted because of the pain. Denies dysuria, abdominal pain, hematuria, chest pain, shortness of breath, change in bowel movements. No back trauma or lower extremity numbness/tingling. Her PCP is Dr. Light. Related Data Home Medications Medication Instructions Recorded Confirmed glipizide 5 mg tablet, extended 5 mg PO DAILY 10/04/24 10/04/24 release 24 hr Previous Rx's Medication Instructions Recorded blood-glucose transmitter (Dexcom #1 ea 08/07/21 G6 Transmitter device) blood-glucose meter,continuous #1 ea 09/30/22 (Dexcom G6 Cancer Genetics Assistant) blood-glucose sensor (Dexcom G6 #3 ea 12/14/23 Sensor device) albuterol sulfate 90 mcg/actuation 2 puff inhalation Q2-4H PRN 03/10/24 aerosol inhaler shortness of breath or wheezing #6.7 grams glipizide 5 mg tablet, extended 5 mg PO DAILY #90 tabs 07/01/24 release 24 hr metformin 1,000 mg tablet 1,000 mg PO BIDCC #180 tabs 07/01/24 atorvastatin 40 mg tablet 40 mg PO HS #90 tabs 09/14/24 lisinopril 20 1 tab PO QDAY #90 tabs 09/14/24 mg-hydrochlorothiazide 12.5 mg tablet levothyroxine 112 mcg tablet 112 mcg PO QDAY #90 tabs 09/27/24 hydrocodone 5 mg-acetaminophen 325 1 tab PO Q6H PRN pain (scale score 10/02/24 mg tablet 7-10) #8 tabs ibuprofen 600 mg tablet 600 mg PO Q8H PRN pain #21 tabs 10/02/24 ondansetron 4 mg disintegrating 4 mg PO Q8H PRN nausea and 10/02/24 tablet vomiting #15 tabs levofloxacin 500 mg tablet 500 mg PO DAILY #14 tabs 10/04/24 tamsulosin 0.4 mg capsule 0.4 mg PO DAILY #30 caps 10/04/24 Allergies Allergy/AdvReac Type Severity Reaction Status Date / Time No Known Drug Allergies Allergy Verified 10/04/24 16:05 Review of Systems <Tari Jaimes PA-C - Last Filed: 10/02/24 19:38> Review of Systems ROS Unobtainable: All systems reviewed & are unremarkable except as noted in HPI and below Patient History <Tari Jaimes PA-C - Last Filed: 10/02/24 19:38> Medical History COVID-19 (~12/2022) GERD (gastroesophageal reflux disease) (Unknown) Pneumonia (Unknown) Chronic cough (Unknown) Migraines (2002) Chronic back pain (Unknown) Anemia (1959) Chickenpox (194) Herpes (1984) Measles Mumps (1951) Rubella (1951) History of recurrent ear infection (Unknown) Cataracts, bilateral (Unknown) Heavy menstrual period (Unknown) Fibroids (1978) Pancreatitis (1967) Type 2 diabetes mellitus without complication, without long-term current use of insulin (10/14/16) Pure hypercholesterolemia (10/14/16) Acquired hypothyroidism (10/14/16) Essential hypertension (10/14/16) Surgical History Status post delivery (1978) Family History Brother Age: 74 Hypertension Pre-diabetes Brother Age: 61 Diabetes mellitus Hypertension Child Age: 44 Pre-diabetes Mother Mental and behavioral problem Grandfather Diabetes mellitus Heart disease Hypertension Grandmother Heart disease Sister Age: 81 Diabetes mellitus Sister Age: 79 Pre-diabetes Father Diabetes mellitus Social History household members: family Smoking Status: Never smoker alcohol intake: current Smoking Status: Never smoker alcohol intake frequency: 0-2 drinks per day Substance Use Type: does not use Exam <Tari Jaimes PA-C - Last Filed: 10/02/24 19:38> Narrative Exam Narrative: GENERAL: 79 year old patient appears stated age. Well-developed patient, in mild distress. HEAD: Atraumatic. Normocephalic. EYES: Extraocular motions intact. No scleral icterus. No injection or drainage. ENT: Nose without bleeding, purulent drainage. Airway patent. NECK: Trachea midline. Non tender CARDIOVASCULAR: Regular rate and rhythm. RESPIRATORY: Clear to auscultation. Nonlabored respirations. Speaking in full clear sentences. GASTROINTESTINAL: Subjective right flank pain, negative CVA tenderness. Abdomen soft, non-tender, nondistended. No rebound or guarding. + Bowel sounds. EXTREMITIES: No edema or joint tenderness. BACK: Nontender without deformity or crepitance. No flank tenderness. NEURO: AOx3. Ambulates with steady gait. SKIN: No rash or erythema of visible areas Initial Vital Signs Initial Vital Signs: Vital Signs Temperature 98.1 F 10/02/24 11:04 Pulse Rate 57 L 10/02/24 11:04 Respiratory Rate 17 10/02/24 11:04 Blood Pressure 148/65 H 10/02/24 11:04 Pulse Oximetry 95 10/02/24 11:04 Oxygen Delivery Method Room Air 10/02/24 11:04 <Thea Nguyen DO - Last Filed: 10/09/24 07:21> Initial Vital Signs Initial Vital Signs: Vital Signs Temperature 98.1 F 10/02/24 11:04 Pulse Rate 57 L 10/02/24 11:04 Respiratory Rate 17 10/02/24 11:04 Blood Pressure 148/65 H 10/02/24 11:04 Pulse Oximetry 95 10/02/24 11:04 Oxygen Delivery Method Room Air 10/02/24 11:04 Course <Tair Jaimes PA-C - Last Filed: 10/02/24 19:38> Course Course Narrative: Discussed case with Dr. Nguyne given abnormal CT findings. We will add on lactic, pelvic ultrasound, IV fluids, Rocephin and re-evaluate. Orders Ordered: Discontinued Medications Sodium Chloride (Normal Saline 0.9%) 1,000 mls @ 1,000 mls/hr IV BOLUS ONE Stop: 10/02/24 12:50 Last Admin: 10/02/24 13:19 Dose: Not Given Documented By: TRICE Ceftriaxone Sodium 1,000 mg/ (Sodium Chloride) 100 mls @ 200 mls/hr IV NOW ONE Stop: 10/02/24 14:20 Last Infusion: 10/02/24 15:05 Dose: Infused Documented By: Admin: 10/02/24 14:35 Dose: 200 mls/hr Documented By: TRICE Ketorolac Tromethamine (Ketorolac 30 Mg/Ml Vial) 15 mg IV NOW ONE Stop: 10/02/24 11:52 Last Admin: 10/02/24 13:20 Dose: 15 mg Documented By: TRICE Ondansetron HCl (Ondansetron 4 Mg/2 Ml Inj) 4 mg IV NOW PRN PRN Reason: Nausea And Vomiting Ondansetron HCl (Ondansetron 4 Mg Odt) 4 mg SL NOW PRN PRN Reason: Nausea And Vomiting Last Admin: 10/02/24 11:11 Dose: 4 mg Documented By: TRICE Consultations Consultation #1: Discussed pelvic mass findings with OBGYN on-call Dr. Webber. She will have her office nurses call the patient tomorrow to schedule an appointment. Vital Signs Vital signs: Vital Signs - 8 hr 10/02/24 14:26 10/02/24 16:51 Pulse Rate 95 H 89 Respiratory Rate 17 17 Blood Pressure 143/65 H 128/62 Pulse Oximetry 94 94 Oxygen Delivery Method Room Air Room Air <Thea Nguyen DO - Last Filed: 10/09/24 07:21> Orders Ordered: Discontinued Medications Sodium Chloride (Normal Saline 0.9%) 1,000 mls @ 1,000 mls/hr IV BOLUS ONE Stop: 10/02/24 12:50 Last Admin: 10/02/24 13:19 Dose: Not Given Documented By: TRICE Ceftriaxone Sodium 1,000 mg/ (Sodium Chloride) 100 mls @ 200 mls/hr IV NOW ONE Stop: 10/02/24 14:20 Last Infusion: 10/02/24 15:05 Dose: Infused Documented By: Admin: 10/02/24 14:35 Dose: 200 mls/hr Documented By: TRICE Ketorolac Tromethamine (Ketorolac 30 Mg/Ml Vial) 15 mg IV NOW ONE Stop: 10/02/24 11:52 Last Admin: 10/02/24 13:20 Dose: 15 mg Documented By: TRICE Ondansetron HCl (Ondansetron 4 Mg/2 Ml Inj) 4 mg IV NOW PRN PRN Reason: Nausea And Vomiting Ondansetron HCl (Ondansetron 4 Mg Odt) 4 mg SL NOW PRN PRN Reason: Nausea And Vomiting Last Admin: 10/02/24 11:11 Dose: 4 mg Documented By: TRICE Vital Signs Vital signs: Vital Signs - 8 hr 10/02/24 14:26 10/02/24 16:51 Pulse Rate 95 H 89 Respiratory Rate 17 17 Blood Pressure 143/65 H 128/62 Pulse Oximetry 94 94 Oxygen Delivery Method Room Air Room Air MDM - Back Pain/Injury <Tari Jaimes PA-C - Last Filed: 10/02/24 19:38> Lab Data Attestation: I reviewed the patient's lab results. 10/02/24 12:29 10/02/24 12:29 Labs: Lab Results 10/02/24 10/02/24 Range/Units 11:14 12:29 WBC 16.3 H (4.5-11.0) X10^3/uL RBC 4.65 (4.0-5.2) X10^6/uL Hgb 14.1 (12.0-16.0) g/dL Hct 42.2 (36-46) % MCV 90.6 (80-100) fL MCH 30.4 (26-34) PG MCHC 33.5 (30-36) % RDW 13.2 (11.6-14.8) % Plt Count 265 (150-400) X10^3/uL Neut % (Auto) 85.1 H (50-75) % Lymph % (Auto) 8.2 L (25-40) % [place] % (Auto) 5.3 (3-14) % Eos % (Auto) 0.9 L (2-4) % Baso % (Auto) 0.5 (0-2) % Neut # (Auto) 48465 H (6200-0204) /uL Lymph # (Auto) 1300 (3017-0657) /uL [place] # (Auto) 900 (0-900) /uL Eos # (Auto) 100 (0-450) /uL Baso # (Auto) 100 (0-100) /uL Sodium 136 L (137-145) mmol/L Potassium 4.4 (3.4-5.1) mmol/L Chloride 98 (98-107) mmol/L Carbon Dioxide 31 (22-32) mmol/L BUN 15 (7-17) mg/dL Creatinine 0.96 (0.52-1.04) mg/dL Estimated GFR > 60 (>60) mL/min BUN/Creatinine Ratio 15.6 (6-22) Glucose 187 H (80-110) mg/dL Lactate 1.4 (0.7-2.1) mmol/L Calcium 10.1 (8.4-10.2) mg/dL Total Bilirubin 0.6 (0.2-1.3) mg/dL AST 29 (14-36) IU/L ALT 44 H (<35) IU/L Alkaline Phosphatase 94 (38-126) U/L Total Protein 7.8 (6.3-8.2) g/dL Albumin 4.7 (3.5-5.0) g/dL Globulin 3.1 (1.7-4.1) g/dL Albumin/Globulin Ratio 1.5 (1.0-2.8) Lipase 99 (23-300) U/L Urine RBC 5-10/hpf H (0-5/HPF) Urine WBC >100/hpf H (0-5/HPF) Ur Squamous Epith Cells None seen (0-5/HPF) Urine Bacteria Many (>30) H (None) Ur Culture Indicated? Specimen cultured Vol Urine Centrifuged 10ml (spun) Urine Dip Bedside Urine Glucose 100 mg/dl Bedside Urine Bilirubin - Negative Bedside Urine Ketone - Negative Urine Specific [place] 1.025 Bedside Urine Occult Blood +++ Bedside Urine pH 6.0 Bedside Urine Protein ++ 100 Bedside Urine Urobilinogen - Negative Bedside Urine Nitrite - Negative Bedside Urine Leukocytes +++ [address] scan - abdomen/pelvis: My Impression: Defer to radiologist impression documented below. Radiologist's Impression: IMPRESSION: 1. 1.6 x 1.8 cm right UPJ stone with moderate right-sided hydronephrosis and right perinephric fat stranding. There is also mild right-sided hydroureter with adjacent periureteral fat stranding extending to the level of right UVJ without obstructing ureteral stone. Superimposed right-sided pyelonephritis cannot be excluded. 2. Normal appearing left kidney and left ureter. Normal appearing urinary bladder. 3. Bulky appearing bilateral ovaries with multiple cystic areas concerning for large ovarian cysts versus tubal ovarian abscess, suggest clinical correlation and ultrasound of pelvis follow-up. 4. Hepatic steatosis. 2.9 x 2.3 cm right hepatic lobe lesion as described above and may represent hemangioma. Non urgent follow-up MR study without and with contrast can be done for further evaluation of this region. 5. No bowel obstruction or abnormal bowel wall thickening. No free fluid or free air. Pelvic US: My Impression: Defer to radiologist impression. Radiologist's Impression: FINDINGS: Uterus: Uterus is anteverted and normal in size at 5.2 x 3.4 x 5.3 cm. The myometrium is homogeneous. The endometrium measures 4.3 mm combined thickness. No discrete endometrial mass or fluid. Ovaries: The ovaries are not well seen on this study. 9.8 x 4.1 x 8.2 cm complex cystic structure is noted in midline abdomen and show internal vascularity. Other: No pathologic free abdominal or pelvic fluid. IMPRESSION: 1. Complex cystic structure in pelvis with internal septation and vascularity. Correlate with CT findings , finding may represent a large cystic neoplasm and measures 9.8 x 4.1 x 8.2 cm in size. Billet Grinder correlation is recommended. No normal ovary is identified. Finding is not typical for tubo-ovarian abscess. 2. Normal appearing uterus and endometrium. [facility] Narrative Medical decision making narrative: 79-year-old female with a past medical history of zrb-zecaish-zskbnbdcb type 2 diabetes, hypertension, hyperlipidemia, hypothyroidism who presents to the emergency department for right-sided flank pain since this morning. Differential diagnosis includes but is not limited to pyelonephritis, ureterolithiasis, nephrolithiasis, hydronephrosis, ERNESTO, UTI, cystitis, etc. On exam patient is in mild distress secondary to nausea/vomiting and right flank pain. She is afebrile and not tachycardic. She has subjective severe pain of the right flank however negative CVA tenderness. We will obtain urinalysis, CBC, CMP, CT abdomen and pelvis with IV contrast and treat with Zofran and Toradol at this time, concerned for pyelonephritis. Patient's workup reveals elevated WBC count of 16.3. Normal hemoglobin 14.1, BUN 15, creatinine 0.96. Lipase within normal limits and lactate within normal limits. Urinalysis reveals greater than 100 white blood cells and many bacteria. Patient's abdominal CT scan reveals large 1.6 x 1.8 cm right UPJ stone with moderate right-sided hydronephrosis and right perinephric fat stranding. There is also mild right hydro ureter. Superimposed right-sided pyelonephritis can not be excluded. She was therefore treated with 1 g of IV ceftriaxone. CT scan also reveals bulky appearing bilateral ovaries with multiple cystic areas concerning for large ovarian cyst versus TOA so a pelvic ultrasound was obtained revealing a large pelvic mass 9.8 x 4.1 x 8.2 cm. I discussed case with OBGYN on-call, OBGYN office will call patient to schedule outpatient follow up appointment for this mass. Imaging also revealed 2.9 x 2.3 cm right hepatic lobe lesion, patient and her daughter aware that she should follow-up with nonemergent MRI for further evaluation of this lesion. Patient offered admission given large UPJ stone that will require intervention in addition to UTI however patient's pain is resolved and she would prefer to follow up with Urology outpatient. Patient's vital signs are within normal limits, her lactic acid is normal, and her symptoms have resolved therefore I am agreeable to outpatient management. She was prescribed cefpodoxime for pyelonephritis in addition to Zofran if needed for nausea, ibuprofen and hydrocodone for pain, and Flomax. She was provided with information call Urology tomorrow morning. She is also aware that she will be receiving a call to schedule an appointment with OBGYN. Advised she call her PCP tomorrow as well for a follow-up appointment and to schedule MRI for liver lesion. I discussed the plan and all imaging findings, including incidentals, with both the patient and her daughter Sasha. They are agreeable to the plan, all questions answered. We discussed STRICT ER return precautions. Patient is stable for discharge at this time. <Thea Nguyen, DO - Last Filed: 10/09/24 07:21> Lab Data Labs: Lab Results 10/02/24 10/02/24 Range/Units 11:14 12:29 WBC 16.3 H (4.5-11.0) X10^3/uL RBC 4.65 (4.0-5.2) X10^6/uL Hgb 14.1 (12.0-16.0) g/dL Hct 42.2 (36-46) % MCV 90.6 (80-100) fL MCH 30.4 (26-34) PG MCHC 33.5 (30-36) % RDW 13.2 (11.6-14.8) % Plt Count 265 (150-400) X10^3/uL Neut % (Auto) 85.1 H (50-75) % Lymph % (Auto) 8.2 L (25-40) % [place] % (Auto) 5.3 (3-14) % Eos % (Auto) 0.9 L (2-4) % Baso % (Auto) 0.5 (0-2) % Neut # (Auto) 90722 H (4595-4668) /uL Lymph # (Auto) 1300 (8641-4056) /uL [place] # (Auto) 900 (0-900) /uL Eos # (Auto) 100 (0-450) /uL Baso # (Auto) 100 (0-100) /uL Sodium 136 L (137-145) mmol/L Potassium 4.4 (3.4-5.1) mmol/L Chloride 98 (98-107) mmol/L Carbon Dioxide 31 (22-32) mmol/L BUN 15 (7-17) mg/dL Creatinine 0.96 (0.52-1.04) mg/dL Estimated GFR > 60 (>60) mL/min BUN/Creatinine Ratio 15.6 (6-22) Glucose 187 H (80-110) mg/dL Lactate 1.4 (0.7-2.1) mmol/L Calcium 10.1 (8.4-10.2) mg/dL Total Bilirubin 0.6 (0.2-1.3) mg/dL AST 29 (14-36) IU/L ALT 44 H (<35) IU/L Alkaline Phosphatase 94 (38-126) U/L Total Protein 7.8 (6.3-8.2) g/dL Albumin 4.7 (3.5-5.0) g/dL Globulin 3.1 (1.7-4.1) g/dL Albumin/Globulin Ratio 1.5 (1.0-2.8) Lipase 99 (23-300) U/L Urine RBC 5-10/hpf H (0-5/HPF) Urine WBC >100/hpf H (0-5/HPF) Ur Squamous Epith Cells None seen (0-5/HPF) Urine Bacteria Many (>30) H (None) Ur Culture Indicated? Specimen cultured Vol Urine Centrifuged 10ml (spun) Urine Dip Bedside Urine Glucose 100 mg/dl Bedside Urine Bilirubin - Negative Bedside Urine Ketone - Negative Urine Specific [place] 1.025 Bedside Urine Occult Blood +++ Bedside Urine pH 6.0 Bedside Urine Protein ++ 100 Bedside Urine Urobilinogen - Negative Bedside Urine Nitrite - Negative Bedside Urine Leukocytes +++ 500 Esterase Discharge Plan Departure Patient Disposition: Home Clinical Impression: Obstruction of right ureteropelvic junction (UPJ) due to stone, Pyelonephritis of right kidney, Pelvic mass Instructions: DI for Kidney Stones Activity Restrictions/Additional Instructions: Today you were evaluated for right-sided back pain. Your workup revealed a very large right-sided kidney stone, a urinary tract infection that has spread to the kidney, in addition to an incidental finding of a large pelvic mass. In addition, a lesion was found in your liver and you should have a nonemergent MRI of your liver performed by her primary care doctor. You need to call to schedule an appointment with a urologist (Dr. Sanchez or Dr. Ferro) here at [facility] for further management of your large kidney stone. Please call [phone] first thing tomorrow morning. Our OBGYN office will call to schedule appointment with you regarding your pelvic mass. Call your primary care doctor tomorrow morning in addition to the urologist office. Return to the emergency department immediately if you develop fevers, chills, inability to urinate, vomiting preventing you from keeping down your medications, or any other concerns. You have been prescribed a short course of narcotic medications. These are potentially dangerous and addictive medications that should be used carefully. While on these medications you cannot drive or operate heavy machinery. Additionally, you cannot sign legal documents or perform any duties such as this. Many people get constipated on narcotic medications so it would be advisable to discuss stool softeners with the pharmacist when you picker box operator your prescription. Please understand that we cannot provide further refills of narcotics or controlled substances through the ED and your pain management will need to be through your Primary Care Provider Prescriptions: New ibuprofen 600 mg tablet 600 mg PO Q8H PRN (Reason: pain) Qty: 21 0RF ondansetron 4 mg tablet,disintegrating 4 mg PO Q8H PRN (Reason: nausea and vomiting) Qty: 15 0RF hydrocodone-acetaminophen 5-325 mg tablet 1 tab PO Q6H PRN (Reason: pain (scale score 7-10)) Qty: 8 0RF No Action (DME) Dexcom G6 Transmitter Device See Rx Instructions .Route Qty: 1 3RF Rx Instructions: As directed (DME) Dexcom G6 Cancer Genetics Assistant Misc See Rx Instructions .Route Qty: 1 0RF Rx Instructions: As directed (DME) Dexcom G6 Sensor Device See Rx Instructions .Route Qty: 3 11RF Rx Instructions: As directed glipizide 5 mg tablet extended release 24hr 5 mg PO DAILY Qty: 90 3RF metformin 1,000 mg tablet 1,000 mg PO BIDCC Qty: 180 3RF lisinopril-hydrochlorothiazide 20-12.5 mg tablet 1 tab PO QDAY Qty: 90 3RF atorvastatin 40 mg tablet 40 mg PO HS Qty: 90 3RF albuterol sulfate 90 mcg/actuation HFA aerosol inhaler 2 puff inhalation Q2-4H PRN (Reason: shortness of breath or wheezing) Qty: 6.7 11RF levothyroxine 112 mcg tablet 112 mcg PO QDAY Qty: 90 3RF glipizide 5 mg tablet extended release 24hr 5 mg PO DAILY levofloxacin 500 mg tablet 500 mg PO DAILY Qty: 14 0RF tamsulosin 0.4 mg capsule 0.4 mg PO DAILY Qty: 30 0RF Referrals: Chapo Light DO [Primary Care Provider] - Nixon Sanchez MD [Physician] - (Large right sided UPJ stone, will need intervention. ) Stand Alone Forms: Patient Portal/API/Survey ED Sign-out <Thea Nguyen DO - Last Filed: 10/09/24 07:21> Cosign ED Attending Cosignature Attestation: Case was discussed with me. She does have a large stone she has a leukocytosis of 16 and she does have UTI. Vitals are stable not tachycardic or hypotensive she is normal lactate. Strict return precautions were given. There was discussion with spray applicator about pelvic mass as well. I did not see or evaluate patient I was available for consultation.
--- NOTE | 2024-10-02 11:52 | DI.CT.S_ITS ---
PROCEDURE: CT ABDOMEN PELVIS W CON INDICATIONS: right flank pain; N/V TECHNIQUE: After the administration of intravenous contrast, axial sections acquired from the lung bases to the pubic symphysis. Coronal and sagittal reformats were performed. For radiation dose reduction, the following was used: automated exposure control, adjustment of mA and/or kV according to patient size. COMPARISON: None. FINDINGS: Image quality: Diagnostic. Lower Chest: Bibasilar dependent atelectasis is seen. Heart size is enlarged, no pericardial effusion. ABDOMEN: Liver: Moderate hepatic steatosis is seen. 2.9 x 2.3 cm well-circumscribed hypodense lesion involving right hepatic lobe series 2, image 57. Gallbladder: No radiopaque gallstones or wall thickening. Biliary ducts: No biliary dilation. Pancreas: No ductal dilation. Spleen: Size is within normal limits. Adrenal Glands: No adrenal nodules. Kidneys and Ureters: There is moderate to severe right-sided hydronephrosis and mild right perinephric fat stranding. 1.6 x 1.8 cm stone is noted within right UPJ measures 930 Hounsfield unit in density series 2, image 53. Mild right hydroureter and periureteral fat stranding is seen extending to the level of UVJ. No left-sided renal stones or hydronephrosis. Stomach and Bowel: There is no bowel obstruction. No abnormal bowel wall thickening or mesenteric fat stranding. Peritoneum: No abnormal intraperitoneal fluid. No free air. Ventral Wall: No significant ventral hernia. Abdominal Nodes: No retroperitoneal or mesenteric adenopathy by size criteria. Vessels: Aorta and inferior vena cava are normal in size. PELVIS: Pelvic Organs: No gross abnormality is seen in uterus. Lobulated hypodense areas are seen in bilateral ovaries which may represent large ovarian cysts. Early tubal ovarian abscess collection cannot be entirely excluded. Clinical correlation and follow-up is recommended. Bladder: No bladder wall thickening, accounting for underdistention. Pelvic Nodes: No enlarged lymph nodes. Miscellaneous: No inguinal hernias are seen. Bones: No aggressive osseous abnormality. IMPRESSION: 1. 1.6 x 1.8 cm right UPJ stone with moderate right-sided hydronephrosis and right perinephric fat stranding. There is also mild right-sided hydroureter with adjacent periureteral fat stranding extending to the level of right UVJ without obstructing ureteral stone. Superimposed right-sided pyelonephritis cannot be excluded. 2. Normal appearing left kidney and left ureter. Normal appearing urinary bladder. 3. Bulky appearing bilateral ovaries with multiple cystic areas concerning for large ovarian cysts versus tubal ovarian abscess, suggest clinical correlation and ultrasound of pelvis follow-up. 4. Hepatic steatosis. 2.9 x 2.3 cm right hepatic lobe lesion as described above and may represent hemangioma. Non urgent follow-up MR study without and with contrast can be done for further evaluation of this region. 5. No bowel obstruction or abnormal bowel wall thickening. No free fluid or free air. Dictated by: Victorino Barnett M.D. on 10/02/2024 at 13:38 Approved by: Victorino Barnett M.D. on 10/02/2024 at 13:45
[2024-10-02 12:39] LABS: Add Manual Diff / Slide Review NO; Basophils Absolute Auto 100 /uL (0-100); Basophils Percent Auto 0.5 % (0-2); Eosinophils Absolute Auto 100 /uL (0-450); Eosinophils Percent Auto 0.9 % (2-4); Hematocrit 42.2 % (36-46); Hemoglobin 14.1 g/dL (12.0-16.0); Lymphocytes Absolute Auto 1300 /uL (1100-4500); Lymphocytes Percent Auto 8.2 % (25-40); Mean Corpuscular HGB Conc 33.5 % (30-36); Mean Corpuscular Hemoglobin 30.4 PG (26-34); Mean Corpuscular Volume 90.6 fL (80-100); Monocytes Absolute Auto 900 /uL (0-900); Monocytes Percent Auto 5.3 % (3-14); Neutrophils Absolute Auto 13900 /uL (1500-7000); Neutrophils Percent Auto 85.1 % (50-75); Platelet Count 265 X10^3/uL (150-400); Red Blood Cell Count 4.65 X10^6/uL (4.0-5.2); Red Cell Distribution Width 13.2 % (11.6-14.8); White Blood Cell Count 16.3 X10^3/uL (4.5-11.0)
[2024-10-02 12:49] LABS: Alanine Aminotransferase 44 IU/L (<35); Albumin 4.7 g/dL (3.5-5.0); Albumin Globulin Ratio 1.5 (1.0-2.8); Alkaline Phosphatase 94 U/L (38-126); Aspartate Aminotransferase 29 IU/L (14-36); BUN Creatinine Ratio 15.6 (6-22); Bilirubin Total 0.6 mg/dL (0.2-1.3); Blood Urea Nitrogen 15 mg/dL (7-17); Calcium 10.1 mg/dL (8.4-10.2); Carbon Dioxide 31 mmol/L (22-32); Chloride 98 mmol/L (98-107); Estimated Glomerular Filt Rate > 60 mL/min (>60); Globulin 3.1 g/dL (1.7-4.1); Glucose 187 mg/dL (80-110); HEMOLYSIS < 15 (0-50); Lipase 99 U/L (23-300); Potassium 4.4 mmol/L (3.4-5.1); Sodium 136 mmol/L (137-145); Total Protein 7.8 g/dL (6.3-8.2)
[2024-10-02] MEDS: KETOROLAC 30 MG/ML VIAL 15 MG IV (13:20)
--- NOTE | 2024-10-02 14:19 | DI.US.S_ITS ---
PROCEDURE: US PELVIC COMPLETE INDICATIONS: ovarian cysts vs TOA on CT TECHNIQUE: Real-time scanning was performed of the pelvic organs, with image documentation. Additional endovaginal scanning was necessary due to incomplete visualization of the adnexal and endometrial structures by transabdominal scanning. COMPARISON: [facility], CT, CT ABDOMEN PELVIS W CON, 10/02/2024, 13:05. FINDINGS: Uterus: Uterus is anteverted and normal in size at 5.2 x 3.4 x 5.3 cm. The myometrium is homogeneous. The endometrium measures 4.3 mm combined thickness. No discrete endometrial mass or fluid. Ovaries: The ovaries are not well seen on this study. 9.8 x 4.1 x 8.2 cm complex cystic structure is noted in midline abdomen and show internal vascularity. Other: No pathologic free abdominal or pelvic fluid. IMPRESSION: 1. Complex cystic structure in pelvis with internal septation and vascularity. Correlate with CT findings , finding may represent a large cystic neoplasm and measures 9.8 x 4.1 x 8.2 cm in size. Quality Control Lab Tech correlation is recommended. No normal ovary is identified. Finding is not typical for tubo-ovarian abscess. 2. Normal appearing uterus and endometrium. We strive to produce accurate, complete, and clear reports of imaging services. To assist us in improving patient care, this report was composed using standard report templates and voice recognition software. Therefore, it may contain abnormal punctuation, insertions and/or omissions. Occasional wrong-word or sound-alike substitutions may occur. Though we review the report and make efforts to correct it, we do recommend that the report be read carefully in proper context to recognize any text inaccuracies. Dictated by: Victorino Barnett M.D. on 10/02/2024 at 15:22 Approved by: Victorino Barnett M.D. on 10/02/2024 at 15:28
[2024-10-02 14:26] VITALS: BP 143/65; PULSE 95; RESP 17; O2SAT 94
[2024-10-02] MEDS: cefTRIAXone 1,000 MG in SODIUM CHLORIDE 0.9% 100 ML 200 MG IV (14:35)
[2024-10-02 14:36] LABS: Lactate (Lactic Acid) 1.4 mmol/L (0.7-2.1)
[2024-10-02 16:51] VITALS: BP 128/62; PULSE 89; RESP 17; O2SAT 94
== END 2024-10-02 16:51 | disposition home or self-care (01) ==
PROVIDERS: Emergency Medicine; Emergency Provider Physician Assistant; PCP Family Medicine
DX: R19.00 Intra-abdominal and pelvic swelling, mass and lump, unspecified site (principal); N13.6 Pyonephrosis; N20.1 Calculus of ureter; R11.2 Nausea with vomiting, unspecified
CPT/HCPCS: 36415; 74177; 76830; 76856; 80053; 81003; 81015; 83605; 83690; 85025; 87077; 87086; 87186; 96365; 96375; 99284; J0696; J1885; Q9967

== ENCOUNTER 2024-10-04 15:39 | Day surgery (SDC) | payer MEDICARE, SELFPAY ==
[2024-10-04] VITALS (8 sets, daily range): BP systolic 85–126; BP diastolic 30–70; PULSE 70–98; RESP 12–18; TEMP 36.1–36.4; O2SAT 93–100; BMI 28.3
--- NOTE | 2024-10-04 | DI.RAD.S_ITS ---
PROCEDURE: XR ABDOMEN 1V INDICATIONS: CYSTOSCOPY RIGHT TECHNIQUE: 3 intra-operative images acquired by the Urology service. COMPARISON: None. FINDINGS: Fluoroscopic images demonstrate contrast opacification of the right renal collecting system and placement of a right ureteral stent. IMPRESSION: Fluoroscopy was used for intraprocedural guidance. Approved by: Derek Mcgee M.D. on 10/04/2024 at 18:37
[2024-10-04] MEDS: LACTATED RINGERS 1,000 ML 42 ML IV (15:50)
[2024-10-04] MEDS: levoFLOXacin 500 MG/100 ML PIGGYBACK 100 MG IV (17:13)
--- NOTE | 2024-10-04 17:22 | SUR.OPER ---
Lithotomy on padded OR bed, head on pillow, arms secured on padded arm boards at <90 degrees abduction. Legs secured in padded yellow fins stirrups.
[2024-10-04] MEDS: iopamidoL 30 ML VIAL INJ (17:25)
--- NOTE | 2024-10-04 17:37 | P.OP_ITS ---
Procedure & Clinicians Procedure: Cystoscopy Right retrograde ureteropyelogram Right ureteral stent placement Intraoperative interpretation of fluoroscopic images, total time < 1 hour Same procedure as scheduled: Yes Indications: 79 y/o F recently diagnosed with a 1.8cm right UPJ calculus in the setting of an active urinary tract infection. Surgeon: Kapil Holt Click Yes if Unassisted: Yes Anesthesia Type: General Operative Notes Findings: Findings consistent with an active urinary tract infection on her cystoscopy, large right UPJ calculus Closure Type: not applicable Specimen(s): none sent Estimated Blood Loss (mL): 1 Blood products transfused: none Procedure in detail: Patient was identified in the preoperative holding area and consent confirmed. She was then brought to the operating room where general anesthesia was induced.? She was then placed in the low lithotomy position. She was then prepped and draped in the usual sterile fashion. A surgical timeout was conducted and all were in agreement. Access to the bladder was obtained via a 21Fr cystoscope.? Changes consistent with an active urinary tract infection were evident within her bladder.? The ri ght ureteral orifice was easily visualized and a 0.035 sensor tip ureteral guidewire was advanced through the 5Fr ureteral catheter and into the right renal collecting system.? The ureteral guidewire was removed and a retrograde pyelogram was performed which noted moderate right hydronephrosis and a large right UPJ calculus.? The ureteral guidewire was readvanced through the ureteral catheter and into the right renal pelvis.? The ureteral catheter was then removed.? A 6Fr multi-length JJ ureteral stent without strings was then advanced over the ureteral guidewire and into the right renal collecting system.? Upon removal of the ureteral guidewire, a good curl was appreciated within the right renal pelvis upon fluoroscopy and visually within the bladder.? The bladder was then drained and the cystoscope was removed.? Anesthesia was reversed, she was extubated in the OR and transferred to the PACU in stable condition for recovery. Complications: none Post-operative Condition: stable Disposition: PACU Plan for aftercare: Discharge home from PACU. Will discharge home with a 14 day course of UCx directed antibiotics (Levaquin). Will have our clinic reach out to help schedule her next procedure, a right ureteroscopy with laser lithotripsy for definitive stone management.
[2024-10-04] MEDS: ACETAMINOPHEN 325 MG TABLET 975 MG PO (17:50)
== END 2024-10-04 18:33 | disposition home or self-care (01) ==
PROVIDERS: PCP Family Medicine; Referring Provider Urology; Visit Provider Urology
PROC: (CPT 52332; principal; 2024-10-04 15:30)
DX: N20.1 Calculus of ureter (principal); N39.0 Urinary tract infection, site not specified
CPT/HCPCS: 52332; 52351; 74018; 76000; 82962; 99214; J0330; J1956; J2405; J2704; J3010; Q9967

== ENCOUNTER 2024-10-08 11:18 | Emergency (ER) | payer MEDICARE, SELFPAY ==
[2024-10-08 11:23] VITALS: BP 144/63; PULSE 102; RESP 16; TEMP 35.7; O2SAT 96; BMI 28.3
--- NOTE | 2024-10-08 12:03 | ED.FEMALEGU ---
HPI - Female Genitourinary General Chief complaint: Urogenital-Female Stated complaint: post op problems, bleeding after surgery Time Seen by Provider: 10/08/24 12:00 Source: patient Mode of arrival: Ambulatory History of Present Illness HPI Narrative: 79-year-old female history of ara-[id number] diabetes type 2, hypertension, dyslipidemia, hypothyroidism with recent 1 8 cm right UPJ kidney stone who had ureteral stent placed 10/04/2024, patient was also found to have a complex cystic structure in the pelvis concerning for neoplasm with plan for follow up with Gynecology. Patient states stent is still in place she was supposed to follow up with the [facility] but has not been able to be seen to have her stent removed. She states she has not had any new pain but has had some hematuria she describes as a few small drops the 1st few times she urinated and a little bit more most recently. Denies fevers or chills. No nausea or vomiting. No abdominal back or flank pain. She notes some pressure on her bladder right before she urinates but states that has been present since the stent was placed. No dysuria, urgency or frequency appreciated. Hematuria is her only complaint. Patient states she is on metformin, glipizide, lisinopril, levothyroxine and atorvastatin. No known drug allergies. No tobacco, no regular alcohol or recreational drugs. Dr. Light is her primary care physician. Related Data Home Medications Medication Instructions Recorded Confirmed glipizide 5 mg tablet, extended 5 mg PO DAILY 10/04/24 10/04/24 release 24 hr Previous Rx's Medication Instructions Recorded blood-glucose transmitter (Dexcom #1 ea 08/07/21 G6 Transmitter device) blood-glucose meter,continuous #1 ea 09/30/22 (Dexcom G6 Senior Net Application Developer) blood-glucose sensor (Dexcom G6 #3 ea 12/14/23 Sensor device) albuterol sulfate 90 mcg/actuation 2 puff inhalation Q2-4H PRN 03/10/24 aerosol inhaler shortness of breath or wheezing #6.7 grams glipizide 5 mg tablet, extended 5 mg PO DAILY #90 tabs 07/01/24 release 24 hr metformin 1,000 mg tablet 1,000 mg PO BIDCC #180 tabs 07/01/24 atorvastatin 40 mg tablet 40 mg PO HS #90 tabs 09/14/24 lisinopril 20 1 tab PO QDAY #90 tabs 09/14/24 mg-hydrochlorothiazide 12.5 mg tablet levothyroxine 112 mcg tablet 112 mcg PO QDAY #90 tabs 09/27/24 hydrocodone 5 mg-acetaminophen 325 1 tab PO Q6H PRN pain (scale score 10/02/24 mg tablet 7-10) #8 tabs ibuprofen 600 mg tablet 600 mg PO Q8H PRN pain #21 tabs 10/02/24 ondansetron 4 mg disintegrating 4 mg PO Q8H PRN nausea and 10/02/24 tablet vomiting #15 tabs tamsulosin 0.4 mg capsule (Flomax) 0.4 mg PO DAILY 7 days #7 caps 10/02/24 levofloxacin 500 mg tablet 500 mg PO DAILY #14 tabs 10/04/24 tamsulosin 0.4 mg capsule 0.4 mg PO DAILY #30 caps 10/04/24 Allergies Allergy/AdvReac Type Severity Reaction Status Date / Time No Known Drug Allergies Allergy Verified 10/04/24 16:05 Review of Systems Review of Systems ROS Unobtainable: All systems reviewed & are unremarkable except as noted in HPI and below Patient History Medical History COVID-19 (~12/2022) GERD (gastroesophageal reflux disease) (Unknown) Pneumonia (Unknown) Chronic cough (Unknown) Migraines (2002) Chronic back pain (Unknown) Anemia (1959) Chickenpox (1947) Herpes (1984) Measles Mumps (1951) Rubella (1951) History of recurrent ear infection (Unknown) Cataracts, bilateral (Unknown) Heavy menstrual period (Unknown) Fibroids (1978) Pancreatitis (1967) Type 2 diabetes mellitus without complication, without long-term current use of insulin (10/14/16) Pure hypercholesterolemia (10/14/16) Acquired hypothyroidism (10/14/16) Essential hypertension (10/14/16) Surgical History Status post delivery (1978) Family History Brother Age: 74 Hypertension Pre-diabetes Brother Age: 61 Diabetes mellitus Hypertension Child Age: 44 Pre-diabetes Mother Mental and behavioral problem Grandfather Diabetes mellitus Heart disease Hypertension Grandmother Heart disease Sister Age: 81 Diabetes mellitus Sister Age: 79 Pre-diabetes Father Diabetes mellitus alcohol intake frequency: holidays/special occasions only Substance Use Type: does not use Exam Narrative Exam Narrative: GENERAL: Alert and oriented x three, well-appearing female in mild distress HEENT: Head normocephalic, atraumatic, EOMI, pupils reactive, face symmetric, moist mucous membranes NECK: Supple, full range of motion CARDIOVASCULAR: Regular rate and rhythm without murmurs, rubs or gallops. RESPIRATORY: Breath sounds equal bilaterally, no wheezes rales or rhonchi. ABDOMEN: Soft, nontender. Normoactive bowel sounds all 4 quadrants. No guarding or rebound, rigidity, no mass : No CVA tenderness EXTREMITIES: Normal range of motion, no clubbing or edema. Neurovascularly intact NEUROLOGICAL: Cranial nerves II through XII grossly intact. Moving all extremities SKIN: Warm, dry, no petechiae, no rashes or lesions. Initial Vital Signs Initial Vital Signs: Vital Signs Temperature 96.2 F L 10/08/24 11:23 Pulse Rate 102 H 10/08/24 11:23 Respiratory Rate 16 10/08/24 11:23 Blood Pressure 144/63 H 10/08/24 11:23 Pulse Oximetry 96 10/08/24 11:23 Oxygen Delivery Method Room Air 10/08/24 11:23 Course Orders Ordered: ED Orders 10/08/24 11:30 Ictotest Urine Stat Urine Culture Stat Urine Microscopic Stat 10/08/24 12:09 XR KUB Stat 10/08/24 12:15 BMP [Basic Metabolic Panel] Stat CBC Auto Diff [Complete Blood Count AUTO DIFF] Stat Vital Signs Vital signs: Vital Signs - 8 hr 10/08/24 11:23 10/08/24 12:06 10/08/24 12:06 Temperature 96.2 F L Pulse Rate 102 H 98 H Respiratory Rate 16 Blood Pressure 144/63 H 120/58 L Pulse Oximetry 96 96 Oxygen Delivery Method Room Air 10/08/24 12:30 10/08/24 12:41 10/08/24 12:41 Temperature Pulse Rate 96 H 109 H Respiratory Rate Blood Pressure 130/63 Pulse Oximetry 93 98 Oxygen Delivery Method 10/08/24 13:00 10/08/24 13:00 Temperature 98.2 F Pulse Rate 103 H Respiratory Rate Blood Pressure 118/63 Pulse Oximetry 94 Oxygen Delivery Method Room Air MDM - Female Genitourinary Lab Data 10/08/24 12:15 10/08/24 12:15 Labs: Lab Results 10/08/24 10/08/24 Range/Units 11:30 12:15 WBC 9.3 (4.5-11.0) X10^3/uL RBC 4.53 (4.0-5.2) X10^6/uL Hgb 13.8 (12.0-16.0) g/dL Hct 41.2 (36-46) % MCV 91.0 (80-100) fL MCH 30.6 (26-34) PG MCHC 33.6 (30-36) % RDW 13.0 (11.6-14.8) % Plt Count 310 (150-400) X10^3/uL Neut % (Auto) 64.4 (50-75) % Lymph % (Auto) 22.7 L (25-40) % Greene % (Auto) 6.7 (3-14) % Eos % (Auto) 5.1 H (2-4) % Baso % (Auto) 1.1 (0-2) % Neut # (Auto) 6000 (0910-1435) /uL Lymph # (Auto) 2100 (0043-9344) /uL Greene # (Auto) 600 (0-900) /uL Eos # (Auto) 500 H (0-450) /uL Baso # (Auto) 100 (0-100) /uL Sodium 137 (137-145) mmol/L Potassium 4.0 (3.4-5.1) mmol/L Chloride 100 (98-107) mmol/L Carbon Dioxide 27 (22-32) mmol/L BUN 29 H (7-17) mg/dL Creatinine 1.00 (0.52-1.04) mg/dL Estimated GFR 58 L (>60) mL/min BUN/Creatinine Ratio 29.0 H (6-22) Glucose 197 H (80-110) mg/dL Calcium 9.4 (8.4-10.2) mg/dL Ur Bilirubin Confirm Negative (Negative) Urine RBC 10-30/hpf H (0-5/HPF) Urine WBC 5-10/hpf H (0-5/HPF) Ur Squamous Epith Cells 0-1 /hpf (0-5/HPF) Urine Bacteria Few (2-10) H (None) Vol Urine Centrifuged 10ml (spun) Urine Dip Bedside Urine Glucose Negative Bedside Urine Bilirubin + 1 Bedside Urine Ketone +/- 5 Urine Specific Empire 1.020 Bedside Urine Occult Blood +++ Bedside Urine pH 5.5 Bedside Urine Protein +++ 300 Bedside Urine Urobilinogen - Negative Bedside Urine Nitrite - Negative Bedside Urine Leukocytes ++ 125 Esterase MDM Narrative Medical decision making narrative: 79-year-old female who presents with a complaint of hematuria with known ureteral stent in place with known large kidney stone with plan for outpatient follow up with lithotripsy and ureteral stent removal. Patient denies any pain, no systemic symptoms. Labs show white count of 9.3 hemoglobin of 13.8, platelets of 310. Patient's leukocytosis has resolved since 10/02/2024. Electrolytes are overall appropriate BUN 29 creatinine 1 consistent with prior on 10/02/2024 glucose is 197. Calcium 9.4. Point of care urine shows blood, protein and leukocyte esterase no nitrates., RBCs or 10-30 WBCs are 5-10 1 squamous few bacteria. Urine culture is pending. X-ray KUB shows appropriately positioned right ureteral stent with a unchanged right nephrolithiasis. Patient has ureteral stent noted some hematuria but no other symptoms afebrile patient is overall well-appearing. Reviewed with Urology as patient does have what appears to be some infection in her urine with indwelling stent. Spoke with Dr. Sancehz, urology reviewed he is familiar with the patient she was still on Levaquin has a 14 day course which she should still be taking their office his helping to set up follow up for repeat ureteroscopy lithotripsy which may be through [facility] versus their office. Patient was under the impression it should has been removed by now but I had our with the relayed that it is typical for these to stay in place for longer than a few days. Reviewed all of this with the patient. Discharge Plan Departure Patient Disposition: Home Clinical Impression: Hematuria, S/P ureteral stent placement Instructions: DI for Ureteral Stent Placement Activity Restrictions/Additional Instructions: Please touch base with the Urology office, I did speak with the urologist on-call today their office is working to set you up for follow up for lithotripsy and removal of ureteral stent. These can sometimes stay in place for several weeks. You may continue to see some blood in your urine with a ureteral stent. Continue the antibiotic you are currently on, Levaquin until it is completed for a total of 14 days. Please return if you develop fevers any new abdominal back or flank pain, any difficulty or painful urination new frequency, if you are unable to urinate, any nausea or vomiting or other new or concerning changes. Prescriptions: No Action (DME) Dexcom G6 Transmitter Device See Rx Instructions .Route Qty: 1 3RF Rx Instructions: As directed (DME) Dexcom G6 Senior Net Application Developer Misc See Rx Instructions .Route Qty: 1 0RF Rx Instructions: As directed (DME) Dexcom G6 Sensor Device See Rx Instructions .Route Qty: 3 11RF Rx Instructions: As directed glipizide 5 mg tablet extended release 24hr 5 mg PO DAILY Qty: 90 3RF metformin 1,000 mg tablet 1,000 mg PO BIDCC Qty: 180 3RF lisinopril-hydrochlorothiazide 20-12.5 mg tablet 1 tab PO QDAY Qty: 90 3RF atorvastatin 40 mg tablet 40 mg PO HS Qty: 90 3RF albuterol sulfate 90 mcg/actuation HFA aerosol inhaler 2 puff inhalation Q2-4H PRN (Reason: shortness of breath or wheezing) Qty: 6.7 11RF levothyroxine 112 mcg tablet 112 mcg PO QDAY Qty: 90 3RF ibuprofen 600 mg tablet 600 mg PO Q8H PRN (Reason: pain) Qty: 21 0RF ondansetron 4 mg tablet,disintegrating 4 mg PO Q8H PRN (Reason: nausea and vomiting) Qty: 15 0RF tamsulosin [Flomax] 0.4 mg capsule 0.4 mg PO DAILY 7 Days Qty: 7 0RF hydrocodone-acetaminophen 5-325 mg tablet 1 tab PO Q6H PRN (Reason: pain (scale score 7-10)) Qty: 8 0RF glipizide 5 mg tablet extended release 24hr 5 mg PO DAILY levofloxacin 500 mg tablet 500 mg PO DAILY Qty: 14 0RF tamsulosin 0.4 mg capsule 0.4 mg PO DAILY Qty: 30 0RF Referrals: Kapil Holt DO [Physician] - Chapo Light DO [Primary Care Provider] - Stand Alone Forms: Patient Portal/API/Survey
[2024-10-08 12:06] VITALS: BP 120/58; PULSE 98; O2SAT 96
[2024-10-08 12:09] LABS: Bacteria Urine Few (2-10); Ictotest Urine Negative (Negative); RBC Urine 10-30/HPF (0-5/HPF); Squamous Epithelial Cell Urine 0-1 /HPF (0-5/HPF); Urine Volume 10mL (spun); WBC Urine 5-10/HPF (0-5/HPF)
--- NOTE | 2024-10-08 12:09 | DI.RAD.S_ITS ---
PROCEDURE: XR KUB INDICATIONS: hematuria, no pain, ureteral stent TECHNIQUE: One view of the abdomen acquired. COMPARISON: None. FINDINGS: Surgical changes and devices: A right double-J ureteral stent extends from the right renal pelvis to the bladder. Bowel: Bowel gas pattern is normal. Soft tissues: No suspicious abdominal calcifications. Visualized solid organ contours appear normal in size. Again seen is a 2 cm stone overlying the right renal collecting system. Bones: No suspicious bony lesions. IMPRESSION: Appropriately positioned right ureteral stent with unchanged right nephrolithiasis. Dictated by: Cindy Hastings M.D. on 10/08/2024 at 11:40 Approved by: Cindy Hastings M.D. on 10/08/2024 at 11:42
[2024-10-08 12:28] LABS: Add Manual Diff / Slide Review NO; Basophils Absolute Auto 100 /uL (0-100); Basophils Percent Auto 1.1 % (0-2); Eosinophils Absolute Auto 500 /uL (0-450); Eosinophils Percent Auto 5.1 % (2-4); Hematocrit 41.2 % (36-46); Hemoglobin 13.8 g/dL (12.0-16.0); Lymphocytes Absolute Auto 2100 /uL (1100-4500); Lymphocytes Percent Auto 22.7 % (25-40); Mean Corpuscular HGB Conc 33.6 % (30-36); Mean Corpuscular Hemoglobin 30.6 PG (26-34); Monocytes Absolute Auto 600 /uL (0-900); Monocytes Percent Auto 6.7 % (3-14); Neutrophils Absolute Auto 6000 /uL (1500-7000); Neutrophils Percent Auto 64.4 % (50-75); Platelet Count 310 X10^3/uL (150-400); Red Blood Cell Count 4.53 X10^6/uL (4.0-5.2); White Blood Cell Count 9.3 X10^3/uL (4.5-11.0)
[2024-10-08 12:30] VITALS: PULSE 96; O2SAT 93
[2024-10-08 12:41] VITALS: BP 130/63; PULSE 109; O2SAT 98
[2024-10-08 12:42] LABS: Blood Urea Nitrogen 29 mg/dL (7-17); Calcium 9.4 mg/dL (8.4-10.2); Carbon Dioxide 27 mmol/L (22-32); Chloride 100 mmol/L (98-107); Estimated Glomerular Filt Rate 58 mL/min (>60); Glucose 197 mg/dL (80-110); HEMOLYSIS 44 (0-50); Sodium 137 mmol/L (137-145)
[2024-10-08 13:00] VITALS: BP 118/63; PULSE 103; TEMP 36.8; O2SAT 94
== END 2024-10-08 13:27 | disposition home or self-care (01) ==
PROVIDERS: Emergency Provider Emergency Medicine; PCP Family Medicine
DX: R31.9 Hematuria, unspecified (principal); Z96.0 Presence of urogenital implants
CPT/HCPCS: 74018; 80048; 81003; 81015; 85025; 87086; 99282; 99284

== ENCOUNTER → 2024-10-18 11:07 | Outpatient (CLI) | payer MEDICARE, SELFPAY | PROVIDERS: PCP Family Medicine; Visit Provider Urology | DX: N39.0 Urinary tract infection, site not specified (principal); Z01.818 Encounter for other preprocedural examination; R31.9 Hematuria, unspecified; N20.1 Calculus of ureter; Z96.0 Presence of urogenital implants | CPT/HCPCS: 81002; 87086; 99214 ==

== ENCOUNTER 2024-10-21 12:56 | Observation (INO) | payer MEDICARE, SELFPAY ==
[2024-10-18 12:36] VITALS: BMI 30.2
[2024-10-21] VITALS (15 sets, daily range): BP systolic 114–140; BP diastolic 44–83; PULSE 77–108; RESP 12–20; TEMP 36.1–37.2; O2SAT 90–97; BMI 30.2; BMI 32.7
--- NOTE | 2024-10-21 | DI.RAD.S_ITS ---
PROCEDURE: XR ABDOMEN 1V INDICATIONS: CYSTOSCOPY TECHNIQUE: 4 digital images were obtained from the OR following injection of intravenous contrast to opacify the right upper collecting system and ureter. COMPARISON: , CR, XR ABDOMEN 1V, 10/04/2024, 17:21. FINDINGS: Four digital images from the OR are submitted. These show right ureteral stent has been placed the proximal tip overlies superior calyx and the distal tip overlying the urinary bladder. There is mild right hydronephrosis. No filling defect appreciated.. IMPRESSION: Right ureteral stent positioned as described. Mild right hydronephrosis Dictated by: Alexi Cheema M.D. on 10/24/2024 at 7:01 Approved by: Alexi Cheema M.D. on 10/24/2024 at 7:03
[2024-10-21] MEDS: ACETAMINOPHEN 325 MG TABLET 975 MG PO (08:49)
[2024-10-21] MEDS: levoFLOXacin 500 MG/100 ML PIGGYBACK 100 MG IV (08:49)
[2024-10-21] MEDS: ALBUTEROL/IPRATROPIUM 3 ML AMPUL INH ×2 (08:56→12:29)
--- NOTE | 2024-10-21 09:01 | PM.PREOP ---
Pre-operative Note COVID-19 COVID-19 status: Not tested Interval Note History & Physical reviewed/Exam performed by Physician: Yes Changes to H&P: No
--- NOTE | 2024-10-21 09:44 | SUR.OPER ---
Lithotomy on padded OR bed, head on pillow, arms secured on padded arm boards at <90 degrees abduction. Legs secured in padded yellow fins stirrups.
--- NOTE | 2024-10-21 10:57 | PM.OP.1 ---
Procedure & Clinicians Procedure: Cystoscopy Right retrograde ureteropyelogram Right ureteroscopy, laser lithotripsy Right ureteral stent exchange Intraoperative interpretation of fluoroscopic images, total time < 1 hour Same procedure as scheduled: Yes Indications: 79 y/o F recently diagnosed with a 1.8cm right UPJ calculus in the setting of an active urinary tract infection who underwent a cystoscopy with right ureteral stent placement on 04 Oct 2024. Discussed the need for a cystoscopy, right ureteroscopy, laser lithotripsy and right ureteral stent exchange for definitive stone management. Surgeon: Kapil Holt Click Yes if Unassisted: Yes Anesthesia Type: General Operative Notes Findings: Very large right UPJ calculus Closure Type: not applicable Specimen(s): none sent Estimated Blood Loss (mL): 5 Blood products transfused: none Procedure in detail: Procedures: 1) Cystoscopy 2) Right retrograde ureteropyelogram 3) Right ureteroscopy, laser lithotripsy 4) Right ureteral stent exchange 5) Intraoperative interpretation of fluoroscopic images, < 1 hour, all images saved to PACS Indication: Patient was identified in the preoperative holding area and consent confirmed. He was then brought to the operating room where general anesthesia was induced.? He was placed in the low lithotomy position. He was then prepped and draped in the usual sterile fashion. A surgical timeout was conducted and all were in agreement. ?Access to the bladder was obtained via a 30 degree cystoscope.? Complete cystoscopy was then performed and no concerning bladder masses or lesions were appreciated.? Bilateral ureteral orifices were easily identified and noted to be orthotopic in nature.? The previously placed right ureteral stent was easily visualized and externalized using the stent grasper.? A 0.035 sensor tip ureteral guidewire was advanced through the stent and into the right renal pelvis.? A 12/14Fr ureteral access sheath was then advanced over the ureteral guidewire and into the proximal right ureter.? The ureteral guidewire and inner obturator were then removed.? The flexible ureteroscope was then advanced through the ureteral access sheath and to the level of the right UPJ where a large stone was visualized.? Complete pyeloscopy was then performed and no other uroliths were noted.? Laser lithotripsy was then performed utilizing the 200 micron laser fiber.? Unfortunately, the stone was so large that visualization became very poor after lasering for nearly 60 minutes, therefore, the decision was made to place a right ureteral stent and return to remove the rest of the stone at a later date. A retrograde pyelogram was then performed which noted no contrast extravasation.? The ureteral guidewire was then readvanced through the ureteroscope and into the right renal pelvis.? The ureter was then directly visualized upon removal of the ureteroscope and ureteral access sheath and noted to be stone free.? The cystoscope was then backloaded over the ureteral guidewire and advanced into the bladder.? A 6Fr [id number] JJ ureteral stent without strings was then advanced over the ureteral guidewire.? Upon removal of the guidewire, a good curl was noted within the right renal pelvis upon fluoroscopy and visually within the bladder.? The bladder was then drained and the cystoscope was removed.? Anesthesia was reversed, she was extubated in the OR and transferred to the PACU in stable condition for recovery. Complications: none Post-operative Condition: stable Disposition: PACU Plan for aftercare: Discharge home from PACU. Will return to the OR in 3 weeks for cystoscopy, right ureteroscopy, laser lithotripsy and right ureteral stent exchange.
[2024-10-21] MEDS: ALBUTEROL 2.5 MG/3 ML NEB (ADULT) INH (11:08)
[2024-10-21] MEDS: INSULIN REGULAR 100 UNIT/ML 3 ML VIAL IV ×2 (11:19→12:26)
--- NOTE | 2024-10-21 11:33 | SUR.PHASEI ---
Pt given Reg Insulin per MD order. Check CBG after 45 min and OK to DC with CBG of [address] Corey. SBAR report to Zia BEASLEY
--- NOTE | 2024-10-21 12:22 | DI.RAD.S_ITS ---
PROCEDURE: XR CHEST 1V INDICATIONS: low oxygen saturation TECHNIQUE: One view of the chest was acquired. COMPARISON: [facility], CR, XR ABDOMEN 1V, 10/21/2024, 9:37. [facility], CR, XR CHEST 2V, 01/15/2023, 11:11. FINDINGS: Surgical changes and devices: Right upper quadrant nephrostomy tube. Lungs and pleura: Lungs are clear. No pleural effusions or pneumothorax. Mediastinum: Mediastinal contours appear normal. Heart size is normal. Bones and chest wall: No suspicious bony lesions. Overlying soft tissues appear unremarkable. IMPRESSION: No acute cardiopulmonary abnormality is seen. Dictated by: Yovanny Slater M.D. on 10/21/2024 at 12:50 Approved by: Yovanny Slater M.D. on 10/21/2024 at 12:52
--- NOTE | 2024-10-21 12:36 | SUR.PHASEII ---
Patient unable to maintain O2 sat above 90%. Anesthesia at bedside for eval. Chest xray order + 4pack respiratory test.
--- NOTE | 2024-10-21 12:40 | SUR.PHASEII ---
New verified verbal order from Dr Corey for upper resp infection screening test.
[2024-10-21] MEDS: OXYCODONE IR 5 MG TABLET PO (12:50)
[2024-10-21 13:51] LABS: Influenza A - CEPHEID Flu A NEGATIVE (NEGATIVE); Influenza B - CEPHEID Flu B NEGATIVE (NEGATIVE); Respiratory Syncytial Virus Negative (Negative)
[2024-10-21 13:53] LABS: COVID-19 CEPHEID 4-PLEX PCR Negative (Negative)
--- NOTE | 2024-10-21 13:54 | PM.CN ---
History of Present Illness Consult details Date Patient Seen: 10/21/24 Time Patient Seen: 13:54 Chief complaint: SDC Reason for consult: Hypoxia Requesting provider: Kapil Holt Narrative: The patient is status post an attempt to remove a kidney stone today. Removal was incomplete and a stent was placed. In the postoperative setting, the patient had hypoxemia. A chest x-ray was obtained which was suggestive of possible pneumonia. She required oxygen and was admitted for observation. There was a concern for pneumonia. Upon arrival to the [facility] the patient feels better and denies any dyspnea, or cough currently or recently. He was also been no recent fevers, chills. She does have some bladder pressure which is fairly chronic for her with her stone. She denies any acute flank or groin pain. She does have a cough, but states that she has a chronic cough. This is nonproductive. It was perhaps low worsened normal. She does note that she has been under the weather for a couple of days, but denies rhinorrhea, or sore throat. Chest x-ray was reviewed personally, there was no acute infiltrate noted. Operative staff were concerned about her neck x-ray initially and thought that there might be an infiltrate. For this reason blood cultures and IV antibiotics were ordered. She denies any chest pain. Meds Home Medications and Allergies Home Medications Medication Instructions Recorded Confirmed Type blood-glucose transmitter (Dexcom #1 ea 08/07/21 10/21/24 Rx G6 Transmitter device) blood-glucose meter,continuous #1 ea 09/30/22 10/21/24 Rx (Dexcom G6 Electric Lift Truck Driver) blood-glucose sensor (Dexcom G6 #3 ea 12/14/23 10/21/24 Rx Sensor device) albuterol sulfate 90 mcg/actuation 2 puff inhalation Q2-4H PRN 03/10/24 10/21/24 Rx aerosol inhaler shortness of breath or wheezing #6.7 grams glipizide 5 mg tablet, extended 5 mg PO DAILY #90 tabs 07/01/24 10/21/24 Rx release 24 hr metformin 1,000 mg tablet 1,000 mg PO BIDCC #180 tabs 07/01/24 10/21/24 Rx atorvastatin 40 mg tablet 40 mg PO HS #90 tabs 09/14/24 10/21/24 Rx lisinopril 20 1 tab PO QDAY #90 tabs 09/14/24 10/21/24 Rx mg-hydrochlorothiazide 12.5 mg tablet levothyroxine 112 mcg tablet 112 mcg PO QDAY #90 tabs 09/27/24 10/21/24 Rx hydrocodone 5 mg-acetaminophen 325 1 tab PO Q6H PRN pain (scale score 10/02/24 10/21/24 Rx mg tablet 7-10) #8 tabs ibuprofen 600 mg tablet 600 mg PO Q8H PRN pain #21 tabs 10/02/24 10/21/24 Rx ondansetron 4 mg disintegrating 4 mg PO Q8H PRN nausea and 10/02/24 10/21/24 Rx tablet vomiting #15 tabs glipizide 5 mg tablet, extended 5 mg PO DAILY 10/04/24 10/21/24 History release 24 hr levofloxacin 500 mg tablet 500 mg PO DAILY #14 tabs 10/04/24 10/21/24 Rx tamsulosin 0.4 mg capsule 0.4 mg PO DAILY #30 caps 10/04/24 10/21/24 Rx oxycodone 5 mg tablet 5 mg PO Q8H PRN pain #7 tabs 10/21/24 Rx Allergies Allergy/AdvReac Type Severity Reaction Status Date / Time No Known Drug Allergies Allergy Verified 10/21/24 08:39 Review of Systems Review of Systems Narrative: All else reviewed and otherwise unremarkable except as noted in the history and physical. Exam Vital Signs (past 8 hours): - 10/21/24 08:59 10/21/24 10:49 10/21/24 10:54 Temperature 96.9 F L 98.9 F Pulse Rate 77 104 H 108 H Respiratory Rate 16 14 12 Blood Pressure 118/59 L 130/56 L 140/46 L Pulse Oximetry 94 94 95 Oxygen Delivery Method Room Air Simple Mask Simple Mask Oxygen Flow Rate 5 5 10/21/24 10:59 10/21/24 11:04 10/21/24 11:09 Temperature 97.2 F L Pulse Rate 97 H 101 H 94 H Respiratory Rate 15 14 18 Blood Pressure 135/50 L 129/44 L 124/58 L Pulse Oximetry 95 92 92 Oxygen Delivery Method Simple Mask Nasal Cannula Nasal Cannula Oxygen Flow Rate 5 4 4 10/21/24 11:14 10/21/24 11:24 10/21/24 11:29 Temperature Pulse Rate 91 H 92 H 92 H Respiratory Rate 15 15 14 Blood Pressure 131/57 L 121/46 L 135/62 Pulse Oximetry 93 93 92 Oxygen Delivery Method Nasal Cannula Nasal Cannula Nasal Cannula Oxygen Flow Rate 4 2 2 10/21/24 12:15 10/21/24 12:46 Temperature Pulse Rate 87 108 H Respiratory Rate 18 20 Blood Pressure 133/79 133/71 Pulse Oximetry 90 L 91 Oxygen Delivery Method Room Air Room Air Oxygen Flow Rate Oxygen Delivery Method Room Air Oxygen Flow Rate 2 Narrative Exam Narrative: NAD, alert and oriented, fluent speech, calm. Coughing occasionally. Normocephalic skull, EOMI, anicteric sclera, symmetric pupils. Oropharynx unremarkable, no droop. Neck supple, midline trachea, no adenopathy. Lungs clear, normal rate and effort. Heart regular, no murmur gallop or rub. Abdomen is soft, non distended and non tender. Extremities are free of edema. Skin is free of rash or lesions. Joints are not swollen or deformed. Judgment appears to be normal. Objective Imaging Chest x-ray: Radiologist's impression: No acute abnormality. Labs Labs: Laboratory Results - last 24 hr 10/21/24 12:38 SARS-CoV-2 (PCR) Negative Influenza A (RT-PCR) Flu a negative Influenza B (RT-PCR) Flu b negative RSV (PCR) Negative [facility] Medical History COVID-19 (~12/2022) GERD (gastroesophageal reflux disease) (Unknown) Pneumonia (Unknown) Chronic cough (Unknown) Migraines (2002) Chronic back pain (Unknown) Anemia (1960) Chickenpox (1947) Herpes (1984) Measles Mumps (1951) Rubella (1951) History of recurrent ear infection (Unknown) Cataracts, bilateral (Unknown) Heavy menstrual period (Unknown) Fibroids (1978) Pancreatitis (1967) Type 2 diabetes mellitus without complication, without long-term current use of insulin (10/14/16) Pure hypercholesterolemia (10/14/16) Acquired hypothyroidism (10/14/16) Essential hypertension (10/14/16) Surgical History History of cystoscopy (10/04/24) Status post delivery (1978) Family History Brother Age: 74 Hypertension Pre-diabetes Brother Age: 61 Diabetes mellitus Hypertension Child Age: 44 Pre-diabetes Mother Mental and behavioral problem Grandfather Diabetes mellitus Heart disease Hypertension Grandmother Heart disease Sister Age: 81 Diabetes mellitus Sister Age: 79 Pre-diabetes Father Diabetes mellitus Social History household members: family Tobacco & Substance Use Smoking Status: Never smoker alcohol intake: current Assessment & Plan Assessment & Plan narrative: 1. Post operative hypoxia, present on admission and improved. 2. Possible pneumonia, present on admission and improved. 3. Recent URI synptoms, present on admission and improved. 4. Nephrolithiasis (right) and stenting, present on admission and active. 5. DM 2, present on admission and active. 6. HTN, present on admission and active. 7. Hypothyroid, present on admission and active. 8. Pelvic cystic structure, present on admission and active. PLAN: -continue antibiotics -blood cultures - She is now off O2. -correctional insulin -OOB. Full code Expect a 1 MN stay. GERARDO: 10/22. Time-Based Coding :: 35 min spent with patient and on the chart (including review of chart, obtaining history, exam, reviewing outside data, placing orders, documenting exam and treatment plan, and counseling patient) on 10/21.
[2024-10-21 16:39] LABS: Hematocrit 39.2 % (36-46); Hemoglobin 12.8 g/dL (12.0-16.0); Mean Corpuscular HGB Conc 32.7 % (30-36); Mean Corpuscular Hemoglobin 29.9 PG (26-34); Mean Corpuscular Volume 91.3 fL (80-100); Platelet Count 297 X10^3/uL (150-400); Red Cell Distribution Width 13.2 % (11.6-14.8); White Blood Cell Count 12.7 X10^3/uL (4.5-11.0)
[2024-10-21 16:50] LABS: BUN Creatinine Ratio 24.1 (6-22); Blood Urea Nitrogen 19 mg/dL (7-17); Calcium 8.9 mg/dL (8.4-10.2); Carbon Dioxide 27 mmol/L (22-32); Chloride 99 mmol/L (98-107); Estimated Glomerular Filt Rate > 60 mL/min (>60); Glucose 317 mg/dL (80-110); HEMOLYSIS < 15 (0-50); Potassium 3.7 mmol/L (3.4-5.1); Sodium 133 mmol/L (137-145)
[2024-10-21] MEDS: cefTRIAXone 1,000 MG in SODIUM CHLORIDE 0.9% 100 ML 200 MG IV (17:51)
[2024-10-21] MEDS: INSULIN LISPRO 100 UNIT/ML 3ML VIAL SUBCUT ×2 (17:52→20:59)
[2024-10-21] MEDS: ATORVASTATIN 20 MG TABLET 40 MG PO (21:00)
[2024-10-21 21:51] LABS: Adenovirus Not Detected (Not Detect); B. parapertussis Not Detected (Not Detecte); Bordetella pertussis Not Detected (Not Detect); Chlamydophila pneumoniae Not Detected (Not Detect); Coronavirus 229E Not Detected (Not Detect); Coronavirus HKU1 Not Detected (Not Detect); Coronavirus NL 63 Not Detected (Not Detect); Coronavirus OC43 Not Detected (Not Detect); Human Metapneumovirus Not Detected (Not Detect); Human Rhinovirus/Enterovirus Detected (Not Detect); Influenza A Not Detected (Not Detect); Influenza B Not Detected (Not Detect); Mycoplasma pneumoniae Not Detected (Not Detect); Parainfluenza Virus 1 Not Detected (Not Detect); Parainfluenza Virus 2 Not Detected (Not Detect); Parainfluenza Virus 3 Not Detected (Not Detect); Parainfluenza Virus 4 Not Detected (Not Detect); Respiratory Syncytial Virus Not Detected (Not Detect); SARS- CoV-2 Not Detected (Not Detecte)
[2024-10-21] MEDS: BENZOCAINE/MENTHOL 1 LOZ PKT 1 EACH PO (23:19)
[2024-10-22] MEDS: BENZOCAINE/MENTHOL 1 LOZ PKT 1 EACH PO (01:02)
[2024-10-22] MEDS: LEVOTHYROXINE 112 MCG TABLET PO (05:19)
[2024-10-22 08:00] VITALS: BP 116/63; PULSE 77; RESP 17; TEMP 36.2; O2SAT 94
[2024-10-22] MEDS: TAMSULOSIN 0.4 MG CAPSULE PO (08:38)
[2024-10-22] MEDS: INSULIN LISPRO 100 UNIT/ML 3ML VIAL SUBCUT (09:12)
--- NOTE | 2024-10-22 09:22 | PM.PN.1 ---
Subjective Subjective Date Patient Seen: 10/22/24 Time Patient Seen: 09:00 Interval history: 79 y/o F recently diagnosed with a 1.8cm right UPJ calculus in the setting of an active urinary tract infection who underwent a cystoscopy with right ureteral stent placement on 04 Oct 2024. She underwent a cystoscopy with right ureteroscopy and laser lithotripsy with right ureteral stent exchange on 21 Oct 2024 with plans to repeat her right ureteroscopy with laser lithotripsy secondary to her aforementioned large stone and inability to remove all of it in one setting. Unfortunately, she developed hypoxemia following her procedure and was admitted for observation. She has subsequently tested positive for rhinovirus, her CXR was otherwise unremarkable. She had an uneventful evening in the hospital and is eager to return home. Exam Vital Signs (past 8 hours): - 10/22/24 08:00 10/22/24 08:00 Temperature 97.1 F L Pulse Rate 77 Respiratory Rate 17 Blood Pressure 116/63 Pulse Oximetry 94 94 Oxygen Delivery Method Nasal Cannula Oxygen Flow Rate 2 2 Oxygen Delivery Method Nasal Cannula Oxygen Flow Rate 2 Narrative Exam Narrative: GEN: Alert and oriented X3. No acute distress. Well-nourished. EYES: PERRLA, EOMI. HENT: Moist mucus membranes, no scleral icterus, normal neck ROM. RESP: Unlabored breathing, equal rise and fall of chest bilaterally, no cyanosis appreciated. CV: No peripheral edema, unremarkable heart rate. ABD: Soft, non-tender, non-distended, no palpable masses. EXT: No edema, clubbing or cyanosis. SKIN: No rashes or lesions. NEURO: No focal neurologic deficits, CN II-XII grossly intact. PSYCH: Cooperative, appropriate mood and affect. Objective Labs 10/21/24 16:30 10/21/24 16:30 Labs: Laboratory Results - last 24 hr 10/21/24 10/21/24 10/21/24 12:38 12:39 16:30 WBC 12.7 H RBC 4.30 Hgb 12.8 Hct 39.2 MCV 91.3 MCH 29.9 MCHC 32.7 RDW 13.2 Plt Count 297 Sodium 133 L Potassium 3.7 Chloride 99 Carbon Dioxide 27 BUN 19 H Creatinine 0.79 Estimated GFR > 60 BUN/Creatinine Ratio 24.1 H Glucose 317 H Calcium 8.9 Chlamy pneumoniae PCR Not detected Adenovirus (PCR) Not detected B. pertussis DNA (PCR) Not detected B.parapertussis DNA PCR Not detected Coronavirus OC43 (PCR) Not detected Coronavirus HKU1 (PCR) Not detected Coronavirus 229E (PCR) Not detected SARS-CoV-2 (PCR) Negative Not detected Coronavirus NL63 (PCR) Not detected Human Metapneumovir PCR Not detected Influenza A (RT-PCR) Flu a negative Influenza Type A (PCR) Not detected Influenza B (RT-PCR) Flu b negative Influenza Type B (PCR) Not detected M. pneumoniae (PCR) Not detected Parainfluenza 1 (PCR) Not detected Parainfluenza 2 (PCR) Not detected Parainfluenza 3 (PCR) Not detected Parainfluenza 4 (PCR) Not detected RSV (PCR) Negative Not detected Entero/Rhino (PCR) Detected H PFSH Medical History COVID-19 (~12/2022) GERD (gastroesophageal reflux disease) (Unknown) Pneumonia (Unknown) Chronic cough (Unknown) Migraines (2002) Chronic back pain (Unknown) Anemia (1959) Chickenpox (194) Herpes (1984) Measles Mumps (1951) Rubella (1951) History of recurrent ear infection (Unknown) Cataracts, bilateral (Unknown) Heavy menstrual period (Unknown) Fibroids (1978) Pancreatitis (1967) Type 2 diabetes mellitus without complication, without long-term current use of insulin (10/14/16) Pure hypercholesterolemia (10/14/16) Acquired hypothyroidism (10/14/16) Essential hypertension (10/14/16) Surgical History History of cystoscopy (10/04/24) Status post delivery (1978) Family History Brother Age: 74 Hypertension Pre-diabetes Brother Age: 61 Diabetes mellitus Hypertension Child Age: 44 Pre-diabetes Mother Mental and behavioral problem Grandfather Diabetes mellitus Heart disease Hypertension Grandmother Heart disease Sister Age: 81 Diabetes mellitus Sister Age: 79 Pre-diabetes Father Diabetes mellitus Social History household members: family Smoking Status: Former smoker alcohol intake: current Assessment & Plan Assessment and plan (1) Right ureteral calculus: Status: Acute Plan: 79 y/o F recently diagnosed with a 1.8cm right UPJ calculus in the setting of an active urinary tract infection who underwent a cystoscopy with right ureteral stent placement on 04 Oct 2024. She underwent a cystoscopy with right ureteroscopy and laser lithotripsy with right ureteral stent exchange on 21 Oct 2024 with plans to repeat her right ureteroscopy with laser lithotripsy secondary to her aforementioned large stone and inability to remove all of it in one setting. Unfortunately, she developed hypoxemia following her procedure and was admitted for observation. She has subsequently tested positive for rhinovirus, her CXR was otherwise unremarkable. - She will be discharged home this morning - Will return to OR in 3 weeks for a repeat right ureteroscopy, laser lithotripsy and right ureteral stent exchange - Will discharge home with an additional 30 day supply of Tamsulosin 0.4mg daily to assist with stent discomfort Time-Based Coding :: [TOTAL MINUTES] spent with patient and on the chart (including review of chart, obtaining history, exam, reviewing outside data, placing orders, documenting exam and treatment plan, and counseling patient) on [DATE]. Quality VTE Deep Vein Thrombosis/Pulmonary Embolism Present on Admission: No IH PROFEE Charge codes Subsequent inpatient/observation care: [id number]
[2024-10-22 10:29] LABS: Hemoglobin A1C% w Est Avg Glu 7.8 % (4.0-6.0)
[2024-10-22] MEDS: guaiFENesin Solution 100 MG/5 ML UDC 200 MG PO (10:45)
[2024-10-22] MEDS: IBUPROFEN 600 MG TABLET PO (10:46)
[2024-10-22] MEDS: glipiZIDE 5 MG TABLET PO (10:47)
--- NOTE | 2024-10-22 13:11 | CM.DANOTE ---
B DCP Assessment Note Pt is a 79yo F POD1 from cystoscopy with Dr. Holt, hospitalist consult due to In the postoperative setting, the patient had hypoxemia (consult note). required oxygen overnight. PCP Kuldeep reynaga and self pay. DINKEY OPERATOR SLAG reviewed EMR. Per hospitalist, anticipate home today after r/o for home O2. Per UR RN who interviewed pt after providing MOHAMUD form. UR RN reports pt lives with dtr and grandchildren in [place], is indep/drives/active/uses no DME at baseline. Pt is eager to dc home. Denies any DCP/CM needs to UR RN. Per bedside RN, completed long-term O2 eval, walked pt in hallways, and per her assessment pt does not require home O2. Has done well on room air all morning. No obvious CM needs identified. P: anticipate home with family support today and close OP urology f/u, already scheduled. no identified barriers to safe dc home at this time. CM team will continue to follow as needed SYDNEY Castro Discharge Planning/Care Management CM Discharge Assessment Start: 10/22/24 13:10 Freq: Status: Active Protocol: Document 10/22/24 13:10 SL (Rec: 10/22/24 13:11 [id number]) Discharge Planning Assessment Assigned Bartender Manager SYDNEY Robert DPOA/Assigned Designee Name jayleen Hayes Contact Information [phone] Advance Directives? No History Provided By Patient,Medical Record Prior Living Arrangements House Household Members family Type of transporation used prior to Drives own vehicle admit Independent with ADL's Yes Is patient alert and oriented? Yes Barriers to Discharge No Discharge Plan Home Referrals Initiated None needed Whiteboard Updated in Patient Room with No name and ext. # of Bartender Manager Review Status In Process Please Provide Date Initial DC 10/22/24 Assessment Was Performed Next Review Type Continued Stay Review Pre-Anesthesia Assessment Start: 10/18/24 12:36 Freq: Status: Complete Protocol: Document 10/18/24 12:36 CAB (Rec: 10/18/24 12:47 CAB [id number]) Pre-Anesthesia Assessment PAC Comment Chart review Patient Information Reviewed Via Chart Review Primary Care Provider [facility] Seen Specialist in Last 12 Months Yes Specialist Seen Emergency,Urologist Primary Language Kazakh Timekeeper Supervisor Required No Height 154.94 cm Weight 72.575 kg Body Mass Index (BMI) 30.2 Hx Anesthesia Reactions No Hx Family Anesthesia Reaction No Hx Malignant Hyperthermia No Hx Blood Transfusion Reaction No Anesthesia Review Requested No Manager Spring No alcohol intake current alcohol intake frequency holidays/special occasions only Smoking Status Never smoker Substance Use Type does not use Pain Present Pain Reported Musculoskeletal Symptoms Back Pain Patient is completely paralyzed or No completely immobile Mental Status Oriented to own ability CPAP/BIPAP use not prescribed Currently Taking a Beta Tree No Anti-Coagulant Therapy No Cardiac Testing No Hx Pacemaker/ICD No Pacemaker Rep Required? No Cardiac Clearance Received No Gastrointestinal Symptoms Reflux Urinary Catheter Present No Hx Urinary Self Catheterization No Diabetes Yes HgbA1C 7.0 Date 03/04/24 Patient No Lactating No Presence of External or Internal Medical No Devices Received a COVID vaccine? Yes Marital Status Lives With family Patient Discharge Plan Description Return Home Advance Directives? No
--- NOTE | 2024-10-22 14:10 | PC.NURSE ---
Discharge: Pt feels like she is ready to go home. She has thought she never needed to be here. Discussed low saturations. She agreed it was better to have been safe. O2 off, had been at 1L and pt's sat were 97%. She got instructed with her IS for a second time because she couldn' recall yesterdays. She is getting IS to 1750. Off O2 pt was 92% or greater. As she used her IS more she was staying 95%. Her cold sxs are less today. Her face is less flushed. Still has the sore throat and cough. Got some cough syrup and a cough drop. Pt was off O2 at 0900. At 1230 she amb in the hallways on RA and sats were never less than 95%. was made aware. says okay to go home. Pt got discharge instructions from both hospitalist and her urologist came in to see her, she got her surgical instructions from him. She is tolerating diet w/out problems. She is up and amb. Tolerates diet. Minimal pain. The first pain was this morning and given ibuprofen and she reported it was effective. She has heaviness in the lower abd. Reviewed discharge packet and understood. Rx has been esent. Questions answered. Pt d/c to home with dtr.
--- NOTE | 2024-10-22 15:50 | PM.DS.1 ---
History of Present Illness History of Present Illness Chief complaint: [facility] [place]arrative: Per H&P: The patient is status post an attempt to remove a kidney stone today. Removal was incomplete and a stent was placed. In the postoperative setting, the patient had hypoxemia. A chest x-ray was obtained which was suggestive of possible pneumonia. She required oxygen and was admitted for observation. There was a concern for pneumonia. Upon arrival to the [facility] the patient feels better and denies any dyspnea, or cough currently or recently. He was also been no recent fevers, chills. She does have some bladder pressure which is fairly chronic for her with her stone. She denies any acute flank or groin pain. She does have a cough, but states that she has a chronic cough. This is nonproductive. It was perhaps low worsened normal. She does note that she has been under the weather for a couple of days, but denies rhinorrhea, or sore throat. Chest x-ray was reviewed personally, there was no acute infiltrate noted. Operative staff were concerned about her neck x-ray initially and thought that there might be an infiltrate. For this reason blood cultures and IV antibiotics were ordered. She denies any chest pain. Discharge Providers Provider Date of admission: 10/21/24 12:56 Discharge Date: 10/22/24 Primary care physician: Chapo Light DO Consults: 10/21/24 17:45 Consult to Hospitalist Service Routine Comment: Consulting Provider: Jose Alfredo Astorga Reason for consultation: Respiratory issues following surgery Has provider been notified: Yes Discharge provider: Shweta Randall MD Summary Hospital Course Discharge Diagnosis: 1. Transient post-operative hypoxia, resolved 2. Possible pneumonia, ruled out 3. Rhinovirus URI 4. Rt UPJ calculus s/p cystoscopy, R ureteroscopy, laser lithotripsy, Rt ureteral stent exchange 5. DM2, uncontrolled w/ hyperglycemia (A1C 7.8%) 6. HTN 7. Hypothyroidism 8. 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 Plans were for her to discharge home postoperatively. However, postoperatively she was noted to have hypoxia and she could not be weaned from oxygen. She had reported some URI symptoms in the days leading up to her surgery. Chest x-ray was done with concern initially for pneumonia on read by recovery staff. She was therefore placed on antibiotics and admitted. When formally read of her chest x-ray came back it revealed no evidence of acute cardiopulmonary process. She underwent a respiratory panel which revealed evidence of rhinovirus. She remained in the hospital overnight. She continued to report a mild dry cough. She had no significant shortness of breath. She was successfully weaned from oxygen the morning following admission. She did report some history of being told she had abnormal lung findings at some point when she was in the [facility]. She does not recall having any follow-up on that. I did recommend she have follow-up with her PCP and consideration for evaluation with a chest CT as well as follow-up for her diabetes. A chest CT was not pursued on the date of discharge she was very anxious to return home. She was seen by her urologist prior to discharge and was given detailed instruction for follow-up. She additionally will need follow-up with regard to her pelvic cystic mass. Patient is discharged in stable condition. Status at Discharge Cognitive/behavioral status at discharge: at baseline, oriented Functional status at discharge: independent ambulation Overall status at discharge: patient is progressing back to baseline Time Spent with Patient Time spent: Greater than 30 minutes Exam Vital Signs (past 8 hours): - 10/22/24 08:00 10/22/24 08:00 Temperature 97.1 F L Pulse Rate 77 Respiratory Rate 17 Blood Pressure 116/63 Pulse Oximetry 94 94 Oxygen Delivery Method Nasal Cannula Oxygen Flow Rate 2 2 Oxygen Delivery Method Nasal Cannula Oxygen Flow Rate 2 Narrative Exam Narrative: GEN: Elderly female, Alert and oriented x 3, NAD HEENT:NC, Face symmetric CHEST: Respiratory excursions symmetric, CTAB CV: RRR, no M/R/G ABD: Soft, NT/ND, BT present in all 4 quadrants, no organomegaly or masses EXTR: warm, well perfused, no C/C/E SKIN: warm and dry, no rash NEURO: Alert and oriented x 3, nonfocal Objective Labs 10/21/24 16:30 10/21/24 16:30 Labs: Laboratory Results - last 24 hr 10/21/24 10/21/24 10/22/24 12:39 16:30 00:00 WBC 12.7 H RBC 4.30 Hgb 12.8 Hct 39.2 MCV 91.3 MCH 29.9 MCHC 32.7 RDW 13.2 Plt Count 297 Sodium 133 L Potassium 3.7 Chloride 99 Carbon Dioxide 27 BUN 19 H Creatinine 0.79 Estimated GFR > 60 BUN/Creatinine Ratio 24.1 H Glucose 317 H Hemoglobin A1c 7.8 H Calcium 8.9 Chlamy pneumoniae PCR Not detected Adenovirus (PCR) Not detected B. pertussis DNA (PCR) Not detected B.parapertussis DNA PCR Not detected Coronavirus OC43 (PCR) Not detected Coronavirus HKU1 (PCR) Not detected Coronavirus 229E (PCR) Not detected SARS-CoV-2 (PCR) Not detected Coronavirus NL63 (PCR) Not detected Human Metapneumovir PCR Not detected Influenza Type A (PCR) Not detected Influenza Type B (PCR) Not detected M. pneumoniae (PCR) Not detected Parainfluenza 1 (PCR) Not detected Parainfluenza 2 (PCR) Not detected Parainfluenza 3 (PCR) Not detected Parainfluenza 4 (PCR) Not detected RSV (PCR) Not detected Entero/Rhino (PCR) Detected [facility] Medical History COVID-19 (~12/2022) GERD (gastroesophageal reflux disease) (Unknown) Pneumonia (Unknown) Chronic cough (Unknown) Migraines (2002) Chronic back pain (Unknown) Anemia (1959) Chickenpox (1947) Herpes (1984) Measles Mumps (1951) Rubella (1951) History of recurrent ear infection (Unknown) Cataracts, bilateral (Unknown) Heavy menstrual period (Unknown) Fibroids (1978) Pancreatitis (1967) Type 2 diabetes mellitus without complication, without long-term current use of insulin (10/14/16) Pure hypercholesterolemia (10/14/16) Acquired hypothyroidism (10/14/16) Essential hypertension (10/14/16) Surgical History History of cystoscopy (10/04/24) Status post delivery (1978) Family History Brother Age: 74 Hypertension Pre-diabetes Brother Age: 61 Diabetes mellitus Hypertension Child Age: 44 Pre-diabetes Mother Mental and behavioral problem Grandfather Diabetes mellitus Heart disease Hypertension Grandmother Heart disease Sister Age: 81 Diabetes mellitus Sister Age: 79 Pre-diabetes Father Diabetes mellitus Social History household members: family Smoking Status: Former smoker alcohol intake: current Discharge Plan Discharge Plan Patient Disposition: Home Provider Discharge Comment: You have a stent in your right ureter that will keep it open and prevent it from swelling shut. As long as the stent is in place and for up to a few weeks after removal, you may notice blood in your urine to include blood clots. Do not worry, this is normal. As long as you feel that you are able to fully empty your bladder, it is to be expected that you have blood in your urine. I become concerned when you try to urinate and nothing is coming out. This could indicate that the blood clots are too large for you to pass them on your own and you may require placement of a lucas catheter. As long as the stent is in place, it may feel like you constantly have to urinate despite the fact that very little urine comes out. This is because the stent is irritating the inside lining of your bladder. You may also notice return of flank pain every time that you urinate, this is caused by urine refluxing up the stent and into your kidney. This pain typically resolves within a few minutes of each urination. Lastly, you may feel that you have bladder spasms while the stent is in place. Women typically describe these as feeling similar to their menstrual cramps, while men describe them as pain in the tip of their penis. This is also normal and to be expected. You will be contacted by the Urology clinic to help coordinate her next surgery. Recommend: F/u with Dr. Light within 1 week for recheck of your oxygenation and your diabetes You should have a CT of your chest done within the next couple of weeks to reassess your lungs (especially since you mentioned being told your lungs were in bad shape previously and that you are needing oxygen right now for a simple viral infection). Nursing Discharge Comment: Please use incentive spirometer @ 10 breaths per hour .. #[email or web address] Discharge orders & Medications Prescriptions: New oxycodone 5 mg tablet 5 mg PO Q8H PRN (Reason: pain) Qty: 7 0RF tamsulosin 0.4 mg capsule 0.4 mg PO DAILY Qty: 30 0RF Continued (DME) Dexcom G6 Transmitter Device See Rx Instructions .Route Qty: 1 3RF Rx Instructions: As directed (DME) Dexcom G6 Log Loader Helper Misc See Rx Instructions .Route Qty: 1 0RF Rx Instructions: As directed (DME) Dexcom G6 Sensor Device See Rx Instructions .Route Qty: 3 11RF Rx Instructions: As directed glipizide 5 mg tablet extended release 24hr 5 mg PO DAILY Qty: 90 3RF metformin 1,000 mg tablet 1,000 mg PO BIDCC Qty: 180 3RF lisinopril-hydrochlorothiazide 20-12.5 mg tablet 1 tab PO QDAY Qty: 90 3RF atorvastatin 40 mg tablet 40 mg PO HS Qty: 90 3RF albuterol sulfate 90 mcg/actuation HFA aerosol inhaler 2 puff inhalation Q2-4H PRN (Reason: shortness of breath or wheezing) Qty: 6.7 11RF levothyroxine 112 mcg tablet 112 mcg PO QDAY Qty: 90 3RF ibuprofen 600 mg tablet 600 mg PO Q8H PRN (Reason: pain) Qty: 21 0RF ondansetron 4 mg tablet,disintegrating 4 mg PO Q8H PRN (Reason: nausea and vomiting) Qty: 15 0RF hydrocodone-acetaminophen 5-325 mg tablet 1 tab PO Q6H PRN (Reason: pain (scale score 7-10)) Qty: 8 0RF glipizide 5 mg tablet extended release 24hr 5 mg PO DAILY levofloxacin 500 mg tablet 500 mg PO DAILY Qty: 14 0RF tamsulosin 0.4 mg capsule 0.4 mg PO DAILY Qty: 30 0RF Follow up/Referrals: Kapil Holt DO [Physician] - Chapo Light DO [Primary Care Provider] - Diet/Activity/Treatments Diet: Diet as Tolerated and Carb-consistent/Diabetic Activity: As tolerated Skin/Wound/Dressing Care Report to your healthcare provider any signs of infection, such as:: chills, fever, night sweats, increased pain and unusual drainage Visit Report/Discharge Packet Instructions: How to Use an Incentive Spirometer, DI for Cystoscopy, DI for Cough -- Adult, How to Prevent Falls, DI for Urinary Retention in Women, DI for Prescription Opioid Use, DI for Ureteral Stent Placement, DI for Laser Lithotripsy Stand Alone Forms: Patient Portal/API, Stroke Signs & Symptoms Discharge Data Primary Care Provider: Chapo Light Attending Provider: Kapil Holt Admit Date/Time: 10/21/24 12:56 Quality VTE Deep Vein Thrombosis/Pulmonary Embolism Present on Admission: No
== END 2024-10-22 12:57 | disposition home or self-care (01) ==
LOC: AC 13:05 → OR 13:45 → AC 13:45
PROVIDERS: Family Medicine; Hospitalist; Student in an Organized Health Care Education/Training Program; Admitting Provider Urology; PCP Family Medicine; Referring Provider Urology; Visit Provider Urology
PROC: (CPT 52356; principal; 2024-10-21 10:30)
DX: N20.1 Calculus of ureter (principal); E11.9 Type 2 diabetes mellitus without complications; I10 Essential (primary) hypertension; R09.02 Hypoxemia; J06.9 Acute upper respiratory infection, unspecified; B97.89 Other viral agents as the cause of diseases classified elsewhere; Z79.84 Long term (current) use of oral hypoglycemic drugs; Z11.52 Encounter for screening for COVID-19
CPT/HCPCS: 52356; 0241U; 36415; 71045; 74018; 76000; 80048; 82962; 83036; 85027; 87040; 87633; 94762; G0378; J0696; J1100; J1815; J1956; J2405; J2704; J3010; J7613

== ENCOUNTER 2024-11-04 07:47 | Day surgery (SDC) | payer MEDICARE, SELFPAY ==
[2024-10-21 15:28] VITALS: BMI 32.7
[2024-11-01 11:11] VITALS: BMI 30.2
[2024-11-04] VITALS (8 sets, daily range): BP systolic 104–131; BP diastolic 37–64; PULSE 53–70; RESP 11–18; TEMP 36.1–37.7; O2SAT 93–98; BMI 30.2
--- NOTE | 2024-11-04 | DI.RAD.S_ITS ---
PROCEDURE: XR ABDOMEN 1V INDICATIONS: RT CYSTOSCOPY TECHNIQUE: 3 intra-operative images acquired by the Urology service. COMPARISON: [facility], CR, XR ABDOMEN 1V, 10/21/2024, 9:37. FINDINGS: Dilated right collecting system. Ureteral stent in place. IMPRESSION: Ureteral stent in place. Dilated collecting system. Dictated by: Michele Felipe M.D. on 11/04/2024 at 19:28 Approved by: Michele Felipe M.D. on 11/04/2024 at 19:28
[2024-11-04] MEDS: LACTATED RINGERS 1,000 ML 21 ML IV (08:41)
[2024-11-04] MEDS: ACETAMINOPHEN 325 MG TABLET 975 MG PO (08:46)
--- NOTE | 2024-11-04 09:10 | PM.PREOP ---
Pre-operative Note COVID-19 COVID-19 status: Not tested Interval Note History & Physical reviewed/Exam performed by Physician: Yes Changes to H&P: No
[2024-11-04] MEDS: levoFLOXacin 500 MG/100 ML PIGGYBACK 100 MG IV (09:27)
--- NOTE | 2024-11-04 09:38 | SUR.OPER ---
Lithotomy on padded OR bed, head on pillow, RIGHT ARM secured on padded arm board at <90 degrees abduction. LEFT ARM PADDED AND TUCKED. Legs secured in padded yellow fins stirrups.
[2024-11-04] MEDS: iopamidoL 30 ML VIAL INJ (10:47)
--- NOTE | 2024-11-04 11:11 | PM.OP.1 ---
Procedure & Clinicians Procedure: Cystoscopy Right retrograde ureteropyelogram Right ureteroscopy, laser lithotripsy Right ureteral stent exchange Intraoperative interpretation of fluoroscopic images, total time < 1 hour Same procedure as scheduled: Yes Indications: 79 y/o F recently diagnosed with a 1.8cm right UPJ calculus in the setting of an active urinary tract infection who underwent a cystoscopy with right ureteral stent placement on 04 Oct 2024. She also underwent a right ureteroscopy with laser lithotripsy and ureteral stent exchange on 21 Oct 2024. She returns today for a second-look right ureteroscopy with laser lithotripsy and right ureteral stent exchange. Surgeon: Kapil Holt Click Yes if Unassisted: Yes Anesthesia Type: General Operative Notes Findings: Very large right UPJ calculus Closure Type: not applicable Specimen(s): none sent Estimated Blood Loss (mL): 5 Blood products transfused: none Procedure in detail: Procedures: 1) Cystoscopy 2) Right retrograde ureteropyelogram 3) Right ureteroscopy, laser lithotripsy 4) Right ureteral stent exchange 5) Intraoperative interpretation of fluoroscopic images, < 1 hour, all images saved to PACS Indication: Patient was identified in the preoperative holding area and consent confirmed. He was then brought to the operating room where general anesthesia was induced.? He was placed in the low lithotomy position. He was then prepped and draped in the usual sterile fashion. A surgical timeout was conducted and all were in agreement. ?Access to the bladder was obtained via a 30 degree cystoscope.? Complete cystoscopy was then performed and no concerning bladder masses or lesions were appreciated.? Bilateral ureteral orifices were easily identified and noted to be orthotopic in nature.? The previously placed right ureteral stent was easily visualized and externalized using the stent grasper.? A 0.035 sensor tip ureteral guidewire was advanced through the stent and into the right renal pelvis.? A 12/14Fr ureteral access sheath was then advanced over the ureteral guidewire and into the proximal right ureter.? The ureteral guidewire and inner obturator were then removed.? The flexible ureteroscope was then advanced through the ureteral access sheath and to the level of the right UPJ where a large stone was visualized.? Complete pyeloscopy was then performed and no other uroliths were noted.? Laser lithotripsy was then performed utilizing the 200 micron laser fiber.? Unfortunately, the stone was so large that visualization became very poor after lasering for more than 60 minutes, therefore, the decision was made to place a right ureteral stent and return to remove the rest of the stone at a later date. A retrograde pyelogram was then performed which noted no contrast extravasation.? The ureteral guidewire was then readvanced through the ureteroscope and into the right renal pelvis.? The ureter was then directly visualized upon removal of the ureteroscope and ureteral access sheath and noted to be stone free.? The cystoscope was then backloaded over the ureteral guidewire and advanced into the bladder.? A 6Fr multi-length JJ ureteral stent without strings was then advanced over the ureteral guidewire.? Upon removal of the guidewire, a good curl was noted within the right renal pelvis upon fluoroscopy and visually within the bladder.? The bladder was then drained and the cystoscope was removed.? Anesthesia was reversed, she was extubated in the OR and transferred to the PACU in stable condition for recovery. Complications: none Post-operative Condition: stable Disposition: PACU Plan for aftercare: Discharge home from PACU. Will return to the OR for a cystoscopy, right ureteroscopy, laser lithotripsy and right ureteral stent exchange after her Gynecologic procedure has been completed at .
== END 2024-11-04 12:10 | disposition home or self-care (01) ==
PROVIDERS: PCP Family Medicine; Referring Provider Urology; Visit Provider Urology
PROC: 0TF68ZZ Fragmentation in Right Ureter, Via Natural or Artificial Opening Endoscopic (ICD-10-PCS; CPT 52353; principal; 2024-11-04 09:15)
DX: N20.1 Calculus of ureter (principal)
CPT/HCPCS: 52356; 74018; 76000; 82962; J1885; J1956; J2405; J2704; J3010; Q9967

== ENCOUNTER → 2024-12-15 12:29 | Outpatient (CLI) | payer MEDICARE, SELFPAY ==
[2024-10-21 15:28] VITALS: BMI 32.7
== END ==
PROVIDERS: PCP Family Medicine; Referring Provider Physician Assistant; Visit Provider Physician Assistant
DX: R30.0 Dysuria (principal)
CPT/HCPCS: 87086

== ENCOUNTER 2024-12-24 08:29 | Emergency (ER) | payer MEDICARE, SELFPAY ==
[2024-10-21 15:28] VITALS: BMI 32.7
--- NOTE | 2024-12-24 08:42 | ED_ITS ---
HPI - Female Genitourinary General Chief complaint: Urogenital-Female Stated complaint: UTI Time Seen by Provider: 12/24/24 08:34 History of Present Illness HPI Narrative: 79-year-old female with PMH IDDM, HTN, hx kidney stones, ovarian masses (undergoing eval with [facility]) presents by private vehicle from home for burning with urination x 1 day. Denies any other symptoms other than pain with urination. Took a hydrocodone that she had leftover at home without significant relief. Patient states that it has been several weeks since her last UTI, however record review shows that patient had a family practice visit on 12/15/2024 for burning with urination it was discharged with Keflex. Record review shows that urine clean-catch specimen showed mixed Gram-positive elizabeth that is deemed unsuitable for further studies. Patient denies back pain, nausea, vomiting, abdominal pain, fevers, any other complaints at this time Patient underwent laser lithotripsy and ureteral stent exchange on 11/04/[address] Holt. Patient isn't sure if she has the stent in place or not. Related Data Home Medications Medication Instructions Recorded Confirmed levothyroxine 125 mcg tablet 125 mcg PO DAILY 12/15/24 12/15/24 (Synthroid) Previous Rx's Medication Instructions Recorded blood-glucose transmitter (Dexcom #1 ea 08/07/21 G6 Transmitter device) blood-glucose meter,continuous #1 ea 09/30/22 (Dexcom G6 Isolation Washer) blood-glucose sensor (Dexcom G6 #3 ea 12/14/23 Sensor device) albuterol sulfate 90 mcg/actuation 2 puff inhalation Q2-4H PRN 03/10/24 aerosol inhaler shortness of breath or wheezing #6.7 grams metformin 1,000 mg tablet 1,000 mg PO BIDCC #180 tabs 07/01/24 atorvastatin 40 mg tablet 40 mg PO HS #90 tabs 09/14/24 lisinopril 20 1 tab PO QDAY #90 tabs 09/14/24 mg-hydrochlorothiazide 12.5 mg tablet ibuprofen 600 mg tablet 600 mg PO Q8H PRN pain #21 tabs 10/02/24 oxycodone 5 mg tablet 5 mg PO Q8H PRN pain #7 tabs 10/21/24 oxycodone 5 mg tablet 5 mg PO Q8H PRN pain #6 tabs 11/04/24 cephalexin 500 mg capsule 500 mg PO TID #21 caps 12/15/24 sulfamethoxazole 800 1 tab PO Q12H #14 tabs 12/24/24 mg-trimethoprim 160 mg tablet Allergies Allergy/AdvReac Type Severity Reaction Status Date / Time No Known Drug Allergies Allergy Verified 12/24/24 08:46 Patient History Medical History COVID-19 (~12/2022) GERD (gastroesophageal reflux disease) (Unknown) Pneumonia (Unknown) Chronic cough (Unknown) Migraines (2002) Chronic back pain (Unknown) Anemia (1959) Chickenpox (194) Herpes (1984) Measles Mumps (1951) Rubella (1951) History of recurrent ear infection (Unknown) Cataracts, bilateral (Unknown) Heavy menstrual period (Unknown) Fibroids (1978) Pancreatitis (1967) Type 2 diabetes mellitus without complication, without long-term current use of insulin (10/14/16) Pure hypercholesterolemia (10/14/16) Acquired hypothyroidism (10/14/16) Essential hypertension (10/14/16) Surgical History History of cystoscopy (10/04/24) Status post delivery (1978) Family History Brother Age: 75 Hypertension Pre-diabetes Brother Age: 62 Diabetes mellitus Hypertension Child Age: 45 Pre-diabetes Mother Mental and behavioral problem Grandfather Diabetes mellitus Heart disease Hypertension Grandmother Heart disease Sister Age: 82 Diabetes mellitus Sister Age: 80 Pre-diabetes Father Diabetes mellitus Exam Initial Vital Signs Initial Vital Signs: Vital Signs Temperature 97.8 F 12/24/24 08:46 Pulse Rate 88 12/24/24 08:46 Respiratory Rate 16 12/24/24 08:46 Blood Pressure 137/60 12/24/24 08:46 Pulse Oximetry 94 12/24/24 08:46 Oxygen Delivery Method Room Air 12/24/24 08:46 Const: Awake, alert, no acute distress, nontoxic appearing Cardiac: regular rate, regular rhythm RESP: unlabored, conversational without dyspnea GI: Soft, nontender, nondistended : package wrapper present, no stent strings visible, external genitalia normal Back: No CVA tenderness bilaterally Skin: Warm, Dry, intact, no rashes Neuro: AO x3, CN II-XII grossly intact, moves all extremities Course Orders Ordered: ED Orders 12/24/24 08:51 Urine Culture Stat Urine Microscopic Stat 12/24/24 09:11 XR KUB Stat Vital Signs Vital signs: Vital Signs - 8 hr 12/24/24 08:46 Temperature 97.8 F Pulse Rate 88 Respiratory Rate 16 Blood Pressure 137/60 Pulse Oximetry 94 Oxygen Delivery Method Room Air MDM - Female Genitourinary Differential Diagnosis Differential diagnosis: Likely urinary tract infection, cystitis and other (pyelonephritis) Lab Data Labs: Lab Results 12/24/24 Range/Units 08:51 Urine RBC 10-30/hpf H (0-5/HPF) Urine WBC 1-5/hpf (0-5/HPF) Ur Squamous Epith Cells 0-1 /hpf (0-5/HPF) Urine Bacteria Few (2-10) H (None) Ur Culture Indicated? Specimen cultured Vol Urine Centrifuged Low vol <1ml unspun A Urine Dip Bedside Urine Glucose Negative Bedside Urine Bilirubin + 1 Bedside Urine Ketone - Negative Urine Specific [place] 1.000 Bedside Urine Occult Blood +++ Bedside Urine pH 9.0 Bedside Urine Protein +++ 300 Bedside Urine Urobilinogen - Negative Bedside Urine Nitrite - Negative Bedside Urine Leukocytes ++ 125 Esterase Imaging Data Abdominal x-ray: Radiologist's Impression: Preliminary review: Right-sided ureteral stent in place [facility] Narrative Medical decision making narrative: Patient with burning on urination. Physical exam fairly benign. Patient was recently on Keflex, however the urine culture grew mixed specimens without s ensitivities. Patient's history of events is contradictory. She initially states that it has been several weeks since her last infection, but she just saw her primary care doctor 1 week ago for same symptoms as today. Spoke with daughter Lily [phone]. She states that patient has had ongoing memory issues for the last several months, usually exacerbated when patient is in pain. Daughter is not certain if the stent is still in place or not. Confirms that patient recently was seen by primary doctor for burning with urination. The burning has been ongoing for the last several weeks. Has not been able to f/u [facility] urology since October for her stone and stent Urinalysis shows bacteria present. Blood cells present as well, this is likely secondary to stent placement and previous stone. X-ray KUB confirms presence of ureteral stent. Antibiotics sent to pharmacy of choice. Patient and daughter counseled on importance of urology follow up for ongoing management of patient's previous stone. The burning may be related to stent placement. Discharge Plan Departure Patient Disposition: Home Clinical Impression: Urinary tract infection Instructions: DI for Urinary Tract Infection (UTI) Activity Restrictions/Additional Instructions: You did have some bacteria on your urinalysis today. The x-ray we ordered of your abdomen shows that you still have a stent in place. Your burning may be associated with the stent. Make sure that you follow up as soon as possible with your urologist for further management of your kidney stone and your stent. Antibiotics has been sent to your pharmacy. Finish all of the medication as prescribed. Prescriptions: New sulfamethoxazole-trimethoprim 800-160 mg tablet 1 tab PO Q12H Qty: 14 0RF No Action (DME) Dexcom G6 Transmitter Device See Rx Instructions .Route Qty: 1 3RF Rx Instructions: As directed (DME) Dexcom G6 Isolation Washer Misc See Rx Instructions .Route Qty: 1 0RF Rx Instructions: As directed (DME) Dexcom G6 Sensor Device See Rx Instructions .Route Qty: 3 11RF Rx Instructions: As directed metformin 1,000 mg tablet 1,000 mg PO BIDCC Qty: 180 3RF lisinopril-hydrochlorothiazide 20-12.5 mg tablet 1 tab PO QDAY Qty: 90 3RF atorvastatin 40 mg tablet 40 mg PO HS Qty: 90 3RF albuterol sulfate 90 mcg/actuation HFA aerosol inhaler 2 puff inhalation Q2-4H PRN (Reason: shortness of breath or wheezing) Qty: 6.7 11RF levothyroxine [Synthroid] 125 mcg tablet 125 mcg PO DAILY cephalexin 500 mg capsule 500 mg PO TID Qty: 21 0RF ibuprofen 600 mg tablet 600 mg PO Q8H PRN (Reason: pain) Qty: 21 0RF oxycodone 5 mg tablet 5 mg PO Q8H PRN (Reason: pain) Qty: 7 0RF oxycodone 5 mg tablet 5 mg PO Q8H PRN (Reason: pain) Qty: 6 0RF Referrals: Chapo Light, [Primary Care Provider] - Stand Alone Forms: Patient Portal/API/Survey
[2024-12-24 08:46] VITALS: BP 137/60; PULSE 88; RESP 16; TEMP 36.6; O2SAT 94; BMI 28.3
--- NOTE | 2024-12-24 09:11 | DI.RAD.S_ITS ---
PROCEDURE: XR KUB INDICATIONS: CHECK FOR URETERAL STENTS TECHNIQUE: One view of the abdomen acquired. COMPARISON: [facility], CR, XR ABDOMEN 1V, 10/21/2024, 9:37. [facility], CR, XR CHEST 1V, 10/21/2024, 12:17. [facility], CR, XR ABDOMEN 1V, 11/04/2024, 9:40. [facility], CR, XR KUB, 10/08/2024, 12:07. FINDINGS: Surgical changes and devices: Right ureteral stent in place. Bowel: Bowel gas pattern is normal. Soft tissues: There is a 7 mm calcification projecting over the inferior right renal shadow.. Visualized solid organ contours appear normal in size. Bones: No suspicious bony lesions. IMPRESSION: Right ureteral stent in place. Calcification projecting over the inferior right renal shadow measuring 7 mm, likely representing a stone. Dictated by: Rik Patino M.D. on 12/24/2024 at 10:01 Approved by: Rik Patino M.D. on 12/24/2024 at 10:01
[2024-12-24 09:21] LABS: Urine Volume Low Vol <1mL unspun
[2024-12-24 09:22] LABS: Bacteria Urine Few (2-10); Culture Indicated Urine Specimen Cultured; RBC Urine 10-30/HPF (0-5/HPF); Squamous Epithelial Cell Urine 0-1 /HPF (0-5/HPF); WBC Urine 1-5/HPF (0-5/HPF)
--- NOTE | 2024-12-24 09:47 | PC.NURSE ---
RECORDS FROM OCTOBER WERE REQUESTED. MEDICAL RELEASE FORM WAS SIGNED AND PUT IN PATIENT CHART. MEDICAL RECORDS FAX NUMBER [phone]
[2024-12-24 09:51] VITALS: BP 107/51; PULSE 72; O2SAT 96
== END 2024-12-24 10:01 | disposition home or self-care (01) ==
PROVIDERS: Emergency Provider Emergency Medicine; PCP Family Medicine
DX: N39.0 Urinary tract infection, site not specified (principal); I10 Essential (primary) hypertension; Z87.442 Personal history of urinary calculi; E11.9 Type 2 diabetes mellitus without complications; E03.9 Hypothyroidism, unspecified
CPT/HCPCS: 74018; 81003; 81015; 87086; 99283

== ENCOUNTER 2024-12-28 13:55 | Emergency (ER) | payer MEDICARE, SELFPAY ==
[2024-10-21 15:28] VITALS: BMI 32.7
[2024-12-28 14:01] VITALS: BP 106/56; PULSE 78; RESP 16; TEMP 36.6; O2SAT 97; BMI 28.3
--- NOTE | 2024-12-28 14:26 | ED.FEMALEGU ---
HPI - Female Genitourinary <Tari Jaimes PA-C - Last Filed: 12/28/24 18:55> General Chief complaint: Urogenital-Female Stated complaint: poss uti, difficulty urinating Time Seen by Provider: 12/28/24 14:21 Source: patient Mode of arrival: Family Vehicle History of Present Illness HPI Narrative: Ms. 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 On 10/02/24 patient was seen in the ED and found to have 1.8cm right UPJ stone & UTI, had R stent placed 10/04/[address] Holt, again on 10/21/24. Had hysterectomy at 11/17/24. Was in the ED on 12/24/24 for dysuria and started on Bactrim, KUB confirmed R stent still in place. She is here today for persistent burning with urination and also some burning at all times in the vulva. She does have some issues with her memory however I called to confirm history with her daughterCammie Bautista, whom she lives with. Patient denies vaginal discharge, bleeding, fevers, chills, chest pain, shortness of breath. She has been taking the Bactrim with no improvement in symptoms. Related Data Home Medications Medication Instructions Recorded Confirmed levothyroxine 125 mcg tablet 125 mcg PO DAILY 12/15/24 12/30/24 (Synthroid) Previous Rx's Medication Instructions Recorded blood-glucose transmitter (Dexcom #1 ea 08/07/21 G6 Transmitter device) blood-glucose meter,continuous #1 ea 09/30/22 (Dexcom G6 Commissions Analyst) blood-glucose sensor (Dexcom G6 #3 ea 12/14/23 Sensor device) albuterol sulfate 90 mcg/actuation 2 puff inhalation Q2-4H PRN 03/10/24 aerosol inhaler shortness of breath or wheezing #6.7 grams metformin 1,000 mg tablet 1,000 mg PO BIDCC #180 tabs 07/01/24 atorvastatin 40 mg tablet 40 mg PO HS #90 tabs 09/14/24 lisinopril 20 1 tab PO QDAY #90 tabs 09/14/24 mg-hydrochlorothiazide 12.5 mg tablet ibuprofen 600 mg tablet 600 mg PO Q8H PRN pain #21 tabs 10/02/24 oxycodone 5 mg tablet 5 mg PO Q8H PRN pain #7 tabs 10/21/24 oxycodone 5 mg tablet 5 mg PO Q8H PRN pain #6 tabs 11/04/24 levofloxacin 500 mg tablet 500 mg PO DAILY #7 tabs 12/30/24 phenazopyridine 100 mg tablet 100 mg PO TID #9 tabs 12/30/24 (Pyridium) Allergies Allergy/AdvReac Type Severity Reaction Status Date / Time No Known Drug Allergies Allergy Verified 12/30/24 10:45 Review of Systems <Tari Jaimes PA-C - Last Filed: 12/28/24 18:55> Review of Systems ROS Unobtainable: All systems reviewed & are unremarkable except as noted in HPI and below Patient History <Tari Jaimes PA-C - Last Filed: 12/28/24 18:55> Medical History COVID-19 (~12/2022) GERD (gastroesophageal reflux disease) (Unknown) Pneumonia (Unknown) Chronic cough (Unknown) Migraines (2002) Chronic back pain (Unknown) Anemia (1959) Chickenpox (1947) Herpes (1984) Measles Mumps (1951) Rubella (1951) History of recurrent ear infection (Unknown) Cataracts, bilateral (Unknown) Heavy menstrual period (Unknown) Fibroids (1978) Pancreatitis (1967) Type 2 diabetes mellitus without complication, without long-term current use of insulin (10/14/16) Pure hypercholesterolemia (10/14/16) Acquired hypothyroidism (10/14/16) Essential hypertension (10/14/16) Surgical History History of cystoscopy (10/04/24) Status post delivery (1978) Family History Brother Age: 75 Hypertension Pre-diabetes Brother Age: 62 Diabetes mellitus Hypertension Child Age: 45 Pre-diabetes Mother Mental and behavioral problem Grandfather Diabetes mellitus Heart disease Hypertension Grandmother Heart disease Sister Age: 82 Diabetes mellitus Sister Age: 80 Pre-diabetes Father Diabetes mellitus Exam <MALOU Gomez Last Filed: 12/28/24 18:55> Narrative Exam Narrative: GENERAL: 79 year old patient appears stated age. Well-developed patient, in no acute distress. HEAD: Atraumatic. Normocephalic. NECK: Trachea midline. Cervical ROM intact. CARDIOVASCULAR: Regular rate and rhythm. RESPIRATORY: ?Nonlabored respirations. ?Speaking in clear, full sentences. ?Clear to auscultation. GASTROINTESTINAL: Abdomen soft, non-tender, Protuberant but not distended Normal bowel sounds. Upper abdominal surgical incisions are clean dry and intact. : Normal external female genitalia. EXTREMITIES: No edema or joint tenderness. BACK: Nontender without deformity or crepitance. No flank tenderness. No CVA tenderness. NEURO: AOx3. ?Clear speech. ?Moves all 4 extremities appropriately. SKIN: No rash or erythema of visible areas Initial Vital Signs Initial Vital Signs: Vital Signs Temperature 97.9 F 12/28/24 14:01 Pulse Rate 78 12/28/24 14:01 Respiratory Rate 16 12/28/24 14:01 Blood Pressure 106/56 L 12/28/24 14:01 Pulse Oximetry 97 12/28/24 14:01 Oxygen Delivery Method Room Air 12/28/24 14:01 <Thea Nguyen DO - Last Filed: 01/02/25 23:59> Initial Vital Signs Initial Vital Signs: Vital Signs Temperature 97.9 F 12/28/24 14:01 Pulse Rate 78 12/28/24 14:01 Respiratory Rate 16 12/28/24 14:01 Blood Pressure 106/56 L 12/28/24 14:01 Pulse Oximetry 97 12/28/24 14:01 Oxygen Delivery Method Room Air 12/28/24 14:01 Course <MALOU Gomez Last Filed: 12/28/24 18:55> Orders Ordered: Discontinued Medications Sodium Chloride (Normal Saline 0.9%) 1,000 mls @ 1,000 mls/hr IV BOLUS ONE Stop: 12/28/24 16:48 Last Infusion: 12/28/24 17:21 Dose: Infused Documented By: Admin: 12/28/24 16:16 Dose: 1,000 mls/hr Documented By: SB Ketorolac Tromethamine (Ketorolac 30 Mg/Ml Vial) 15 mg IV NOW ONE Stop: 12/28/24 14:24 Last Admin: 12/28/24 14:42 Dose: 15 mg Documented By: ANOOP Consultations Consultation #1: Spoke with urology Dr. Holt, discussed patient's history, lab and urinalysis findings. UA not consistent with infection. He recommends getting KUB to check stent location. If stent in good location her lab changes likely related to dehydration, if stent is dislodged she may need surgery and recommend calling him back. He is okay with us starting with some IV fluids and obtaining KUB. Time: 15:50 Vital Signs Vital signs: Vital Signs - 8 hr 12/28/24 14:01 12/28/24 16:31 Temperature 97.9 F 97.6 F Pulse Rate 78 68 Respiratory Rate 16 16 Blood Pressure 106/56 L 103/50 L Pulse Oximetry 97 95 Oxygen Delivery Method Room Air Room Air <Thea Nguyen DO - Last Filed: 01/02/25 23:59> Orders Ordered: Discontinued Medications Sodium Chloride (Normal Saline 0.9%) 1,000 mls @ 1,000 mls/hr IV BOLUS ONE Stop: 12/28/24 16:48 Last Infusion: 12/28/24 17:21 Dose: Infused Documented By: Admin: 12/28/24 16:16 Dose: 1,000 mls/hr Documented By: ANOOP Ketorolac Tromethamine (Ketorolac 30 Mg/Ml Vial) 15 mg IV NOW ONE Stop: 12/28/24 14:24 Last Admin: 12/28/24 14:42 Dose: 15 mg Documented By: SB Vital Signs Vital signs: Vital Signs - 8 hr 12/28/24 14:01 12/28/24 16:31 Temperature 97.9 F 97.6 F Pulse Rate 78 68 Respiratory Rate 16 16 Blood Pressure 106/56 L 103/50 L Pulse Oximetry 97 95 Oxygen Delivery Method Room Air Room Air MDM - Female Genitourinary <Tari Jaimes PA-C - Last Filed: 12/28/24 18:55> Medical Records Attestation: I reviewed the patient's medical records. Lab Data 12/28/24 14:34 12/28/24 14:34 Labs: Lab Results 12/28/24 12/28/24 Range/Units 14:20 14:34 WBC 10.3 (4.5-11.0) X10^3/uL RBC 4.08 (4.0-5.2) X10^6/uL Hgb 12.3 (12.0-16.0) g/dL Hct 37.2 (36-46) % MCV 91.1 (80-100) fL MCH 30.2 (26-34) PG MCHC 33.1 (30-36) % RDW 13.2 (11.6-14.8) % Plt Count 266 (150-400) X10^3/uL Neut % (Auto) 48.8 L (50-75) % Lymph % (Auto) 25.6 (25-40) % [place] % (Auto) 5.5 (3-14) % Eos % (Auto) 19.1 H (2-4) % Baso % (Auto) 1.0 (0-2) % Neut # (Auto) 5000 (8423-2290) /uL Lymph # (Auto) 2600 (2967-7345) /uL [place] # (Auto) 600 (0-900) /uL Eos # (Auto) 2000 H (0-450) /uL Baso # (Auto) 100 (0-100) /uL Sodium 138 (137-145) mmol/L Potassium 4.3 (3.4-5.1) mmol/L Chloride 104 (98-107) mmol/L Carbon Dioxide 22 (22-32) mmol/L BUN 24 H (7-17) mg/dL Creatinine 1.41 H (0.52-1.04) mg/dL Estimated GFR 38 L (>60) mL/min BUN/Creatinine Ratio 17.0 (6-22) Glucose 133 H (80-110) mg/dL Calcium 10.2 (8.4-10.2) mg/dL Total Bilirubin 0.3 (0.2-1.3) mg/dL AST 33 (14-36) IU/L ALT 31 (<35) IU/L Alkaline Phosphatase 84 (38-126) U/L Total Protein 6.7 (6.3-8.2) g/dL Albumin 4.2 (3.5-5.0) g/dL Globulin 2.5 (1.7-4.1) g/dL Albumin/Globulin Ratio 1.7 (1.0-2.8) Urine Color Yellow Urine Appearance Sl cloudy Urine pH 6.5 (4.5-8.0) Ur Specific [place] 1.020 (1.000-1.035) Urine Protein 2+ H (Negative) Urine Glucose (UA) Negative (Negative) g/dL Urine Ketones Negative (NEGATIVE) Urine Occult Blood 3+ H (Negative) Urine Nitrate Negative (Negative) Urine Bilirubin Negative (NEGATIVE) Urine Urobilinogen 0.2 (0.2) E.U./dL Ur Leukocyte Esterase 1+ H (NEGATIVE) Urine RBC 10-30/hpf H (0-5/HPF) Urine WBC 1-5/hpf (0-5/HPF) Ur Squamous Epith Cells None seen (0-5/HPF) Urine Bacteria None seen (None) Ur Culture Indicated? Specimen cultured Vol Urine Centrifuged 10ml (spun) Imaging Data KUB: Radiologist's Impression: PROCEDURE: XR KUB INDICATIONS: dysuria; checking R stent placement TECHNIQUE: One view of the abdomen acquired. COMPARISON: [facility], , XR KUB, 12/24/2024, 9:43. FINDINGS: Surgical changes and devices: Right-sided ureteral stent is seen. Bowel: Bowel gas pattern is nonobstructive. Moderate fecal stasis throughout the colon is noted. Soft tissues: No suspicious abdominal calcifications. Visualized solid organ contours appear normal in size. Bones: No suspicious bony lesions. IMPRESSION: No bowel obstruction or gross free air. [id number] constipation. 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 On 10/02/24 patient was seen in the ED and found to have 1.8cm right UPJ stone & UTI, had R stent placed 10/04/[address] Holt, again on 10/21/24. Had hysterectomy at 12/19/24. Was in the ED on 12/24/24 for dysuria and started on Bactrim, KUB confirmed R stent still in place. She is here today for persistent burning with urination and also some burning at all times in the vulva. Differential diagnosis includes but is not limited to cystitis, UTI, irritation from stent/stone, obstruction, vulvovaginal candidiasis, urethritis, etc. On exam patient is in no acute distress, nontoxic appearing, vital signs appropriate, BP slightly low 106/56. Extensive review of patient's records notable for identification of right UPJ 10/02, stent placed 10/04, ED visit for hematuria 10/08, total hysterectomy [facility] 11/17, most recent ED visit on 12/24 with KUB revealing right ureteral stent in place, calcification projecting over the inferior right renal shadow measuring 7 mm likely representing a stone, started on Bactrim b.i.d. x7 days. I called patient's daughter Lily ([phone]) to confirm history. Discussed case with ED attending Dr. Nguyen. We will obtain baseline CBC, CMP, UA, treat pain, contact Urology on-call Dr. Holt. Urine culture from 12/24/2024 reveals mixed Gram-positive elizabeth deemed unsuitable for further studies. Labs reveal WBC count of 10.3, normal RBC count 4.08, hemoglobin 12.3. BUN 24 creatinine 1.41, estimated GFR 38. Her prior creatinine on 10/21/2024 was 0.79. UA reveals 1+ leuk esterase, 10-30 RBCs, 3+ occult blood. Urology consulted recommends KUB. We will treat patient with 1 L IV fluids for ernesto. KUB reveals no bowel obstruction or gross free air. [id number] constipation. Right-sided ureteral stent is seen. Urology Dr. Holt came down to the ED, reviewed pt's imaging. Stent has good placement. He would like patient to follow up in clinic, we discussed AZO for the patient's discomfort. Patient requesting discharge home at this time. We discussed the importance of her following up with urology for further management of stent, azo for dysuria, increased hydration. She received 1 L IV fluids continues to void spontaneously without difficulty. We discussed strict ED return precautions, PCP follow up for monitoring of kidney function, Urology follow up. Patient verbalized understanding of all information is agreeable to the plan, she is stable for discharge home, AZO sent to pharmacy. Also discussed and recommended daily MiraLax for constipation. <Thea Nguyen, DO - Last Filed: 01/02/25 23:59> Lab Data Labs: Lab Results 12/28/24 12/28/24 Range/Units 14:20 14:34 WBC 10.3 (4.5-11.0) X10^3/uL RBC 4.08 (4.0-5.2) X10^6/uL Hgb 12.3 (12.0-16.0) g/dL Hct 37.2 (36-46) % MCV 91.1 (80-100) fL MCH 30.2 (26-34) PG MCHC 33.1 (30-36) % RDW 13.2 (11.6-14.8) % Plt Count 266 (150-400) X10^3/uL Neut % (Auto) 48.8 L (50-75) % Lymph % (Auto) 25.6 (25-40) % [place] % (Auto) 5.5 (3-14) % Eos % (Auto) 19.1 H (2-4) % Baso % (Auto) 1.0 (0-2) % Neut # (Auto) 5000 (8339-6443) /uL Lymph # (Auto) 2600 (4285-6163) /uL [place] # (Auto) 600 (0-900) /uL Eos # (Auto) 2000 H (0-450) /uL Baso # (Auto) 100 (0-100) /uL Sodium 138 (137-145) mmol/L Potassium 4.3 (3.4-5.1) mmol/L Chloride 104 (98-107) mmol/L Carbon Dioxide 22 (22-32) mmol/L BUN 24 H (7-17) mg/dL Creatinine 1.41 H (0.52-1.04) mg/dL Estimated GFR 38 L (>60) mL/min BUN/Creatinine Ratio 17.0 (6-22) Glucose 133 H (80-110) mg/dL Calcium 10.2 (8.4-10.2) mg/dL Total Bilirubin 0.3 (0.2-1.3) mg/dL AST 33 (14-36) IU/L ALT 31 (<35) IU/L Alkaline Phosphatase 84 (38-126) U/L Total Protein 6.7 (6.3-8.2) g/dL Albumin 4.2 (3.5-5.0) g/dL Globulin 2.5 (1.7-4.1) g/dL Albumin/Globulin Ratio 1.7 (1.0-2.8) Urine Color Yellow Urine Appearance Sl cloudy Urine pH 6.5 (4.5-8.0) Ur Specific [place] 1.020 (1.000-1.035) Urine Protein 2+ H (Negative) Urine Glucose (UA) Negative (Negative) g/dL Urine Ketones Negative (NEGATIVE) Urine Occult Blood 3+ H (Negative) Urine Nitrate Negative (Negative) Urine Bilirubin Negative (NEGATIVE) Urine Urobilinogen 0.2 (0.2) E.U./dL Ur Leukocyte Esterase 1+ H (NEGATIVE) Urine RBC 10-30/hpf H (0-5/HPF) Urine WBC 1-5/hpf (0-5/HPF) Ur Squamous Epith Cells None seen (0-5/HPF) Urine Bacteria None seen (None) Ur Culture Indicated? Specimen cultured Vol Urine Centrifuged 10ml (spun) Discharge Plan Departure Patient Disposition: Home Clinical Impression: Dysuria, ERNESTO (acute kidney injury) Constipation Qualifiers: Constipation type: unspecified constipation type Qualified Code(s): K59.00 - Constipation, unspecified Instructions: DI for Dysuria -- Adult Activity Restrictions/Additional Instructions: Dear Ms. Yi, Today you were evaluated for burning with urination. We obtained lab work, imaging, and a urine sample. I also discussed everything with urologist Dr. Holt. At this time there are no signs of urinary tract infection and you do not need to be taking antibiotics. The burning and discomfort your having is likely related to your stent and/or irritation of the urethra and you need to follow up with your urologist for further evaluation. I have sent AZO to your pharmacy which is a medication that can help with the pain in your urethra, it will turn your urine orange. Your lab work today also revealed dehydration and decrease in your kidney function. You were treated with IV fluids but it is very important to continue drinking water and urinating frequently. Your x-ray also showed constipation so I would like you to start using MiraLax daily to help with soft bowel movements. Please return to the emergency department immediately if you develop fevers, severe pain, inability to urinate, any other concerns. Please follow up with your primary care doctor within the next 2-3 days for ER follow-up. (If you do not have a PCP you can call [phone]. ?to schedule an appointment with an [facility] Primary Care Provider) IF YOU DEVELOP ANY NEW OR WORSENING SYMPTOMS, RETURN TO THE ER! Please read the attached instructions, they highlight more specific treatments and interventions for you at home. Thank you for letting me participate in your care, Tari Jaimes PA-C Prescriptions: No Action (DME) Dexcom G6 Transmitter Device See Rx Instructions .Route Qty: 1 3RF Rx Instructions: As directed (DME) Dexcom G6 Commissions Analyst Misc See Rx Instructions .Route Qty: 1 0RF Rx Instructions: As directed (DME) Dexcom G6 Sensor Device See Rx Instructions .Route Qty: 3 11RF Rx Instructions: As directed metformin 1,000 mg tablet 1,000 mg PO BIDCC Qty: 180 3RF lisinopril-hydrochlorothiazide 20-12.5 mg tablet 1 tab PO QDAY Qty: 90 3RF atorvastatin 40 mg tablet 40 mg PO HS Qty: 90 3RF albuterol sulfate 90 mcg/actuation HFA aerosol inhaler 2 puff inhalation Q2-4H PRN (Reason: shortness of breath or wheezing) Qty: 6.7 11RF phenazopyridine [Pyridium] 100 mg tablet 100 mg PO TID Qty: 9 0RF levofloxacin 500 mg tablet 500 mg PO DAILY Qty: 7 0RF levothyroxine [Synthroid] 125 mcg tablet 125 mcg PO DAILY ibuprofen 600 mg tablet 600 mg PO Q8H PRN (Reason: pain) Qty: 21 0RF oxycodone 5 mg tablet 5 mg PO Q8H PRN (Reason: pain) Qty: 7 0RF oxycodone 5 mg tablet 5 mg PO Q8H PRN (Reason: pain) Qty: 6 0RF Referrals: Kapil Holt DO [Physician] - (Right stent, needs follow-up) Chapo Light DO [Primary Care Provider] - Stand Alone Forms: Patient Portal/API/Survey ED Sign-out <Thea Nguyen DO - Last Filed: 01/02/25 23:59> Cosign ED Attending Cosignature Attestation: I was available for consultation.
[2024-12-28 14:41] LABS: Appearance Urine UA SL CLOUDY; Bilirubin Urine UA NEGATIVE (NEGATIVE); Color Urine UA YELLOW; Glucose Urine UA NEGATIVE (Negative); Ketones Urine UA NEGATIVE (NEGATIVE); Leukocyte Esterase Urine UA 1+ (NEGATIVE); Nitrite Urine UA NEGATIVE (Negative); Occult Blood Urine UA 3+ (Negative); Protein Urine UA 2+ (Negative); Urobilinogen Urine UA 0.2 E.U./dL (0.2)
[2024-12-28] MEDS: KETOROLAC 30 MG/ML VIAL 15 MG IV (14:42)
[2024-12-28 14:44] LABS: pH Urine UA 6.5 (4.5-8.0)
[2024-12-28 14:45] LABS: Urine Volume 10mL (spun)
[2024-12-28 14:47] LABS: Bacteria Urine None Seen; Culture Indicated Urine Specimen Cultured; RBC Urine 10-30/HPF (0-5/HPF); Squamous Epithelial Cell Urine None Seen (0-5/HPF); WBC Urine 1-5/HPF (0-5/HPF)
[2024-12-28 14:57] LABS: Add Manual Diff / Slide Review NO; Basophils Absolute Auto 100 /uL (0-100); Eosinophils Absolute Auto 2000 /uL (0-450); Eosinophils Percent Auto 19.1 % (2-4); Hematocrit 37.2 % (36-46); Hemoglobin 12.3 g/dL (12.0-16.0); Lymphocytes Absolute Auto 2600 /uL (1100-4500); Lymphocytes Percent Auto 25.6 % (25-40); Mean Corpuscular HGB Conc 33.1 % (30-36); Mean Corpuscular Hemoglobin 30.2 PG (26-34); Mean Corpuscular Volume 91.1 fL (80-100); Monocytes Absolute Auto 600 /uL (0-900); Monocytes Percent Auto 5.5 % (3-14); Neutrophils Absolute Auto 5000 /uL (1500-7000); Neutrophils Percent Auto 48.8 % (50-75); Platelet Count 266 X10^3/uL (150-400); Red Blood Cell Count 4.08 X10^6/uL (4.0-5.2); Red Cell Distribution Width 13.2 % (11.6-14.8); White Blood Cell Count 10.3 X10^3/uL (4.5-11.0)
[2024-12-28 15:08] LABS: Alanine Aminotransferase 31 IU/L (<35); Albumin 4.2 g/dL (3.5-5.0); Albumin Globulin Ratio 1.7 (1.0-2.8); Alkaline Phosphatase 84 U/L (38-126); Aspartate Aminotransferase 33 IU/L (14-36); Bilirubin Total 0.3 mg/dL (0.2-1.3); Blood Urea Nitrogen 24 mg/dL (7-17); Calcium 10.2 mg/dL (8.4-10.2); Carbon Dioxide 22 mmol/L (22-32); Chloride 104 mmol/L (98-107); Estimated Glomerular Filt Rate 38 mL/min (>60); Globulin 2.5 g/dL (1.7-4.1); Glucose 133 mg/dL (80-110); HEMOLYSIS 15 (0-50); Potassium 4.3 mmol/L (3.4-5.1); Sodium 138 mmol/L (137-145); Total Protein 6.7 g/dL (6.3-8.2)
--- NOTE | 2024-12-28 15:49 | DI.RAD.S_ITS ---
PROCEDURE: XR KUB INDICATIONS: dysuria; checking R stent placement TECHNIQUE: One view of the abdomen acquired. COMPARISON: [facility], , XR KUB, 12/24/2024, 9:43. FINDINGS: Surgical changes and devices: Right-sided ureteral stent is seen. Bowel: Bowel gas pattern is nonobstructive. Moderate fecal stasis throughout the colon is noted. Soft tissues: No suspicious abdominal calcifications. Visualized solid organ contours appear normal in size. Bones: No suspicious bony lesions. IMPRESSION: No bowel obstruction or gross free air. Hyjh-[id number] constipation. Dictated by: Victorino Barnett M.D. on 12/28/2024 at 16:14 Approved by: Victorino Barnett M.D. on 12/28/2024 at 16:15
[2024-12-28] MEDS: SODIUM CHLORIDE 0.9% 1,000 ML 1000 ML IV (16:16)
[2024-12-28 16:31] VITALS: BP 103/50; PULSE 68; RESP 16; TEMP 36.4; O2SAT 95
== END 2024-12-28 17:53 | disposition home or self-care (01) ==
PROVIDERS: Emergency Medicine; Emergency Provider Physician Assistant; PCP Family Medicine
DX: R30.0 Dysuria (principal); N17.9 Acute kidney failure, unspecified; K59.00 Constipation, unspecified; E11.9 Type 2 diabetes mellitus without complications; E03.9 Hypothyroidism, unspecified; Z87.442 Personal history of urinary calculi; Z96.0 Presence of urogenital implants; Z79.890 Hormone replacement therapy
CPT/HCPCS: 36415; 74018; 80053; 81001; 85025; 87086; 96361; 96374; 99284; J1885

== ENCOUNTER 2025-01-06 07:52 | Day surgery (SDC) | payer MEDICARE, SELFPAY ==
[2024-10-21 15:28] VITALS: BMI 32.7
[2025-01-03 14:12] VITALS: BMI 29.6
[2025-01-06] VITALS (11 sets, daily range): BP systolic 104–139; BP diastolic 48–94; PULSE 65–79; RESP 11–78; TEMP 36.1–36.2; O2SAT 75–100; BMI 29.6
--- NOTE | 2025-01-06 | DI.RAD.S_ITS ---
PROCEDURE: XR ABDOMEN 1V INDICATIONS: STENT PLACEMENT TECHNIQUE: 2 intra-operative images acquired by the Urology service. COMPARISON: [facility], CR, XR ABDOMEN 1V, 11/04/2024, 9:40. FINDINGS: IMPRESSION: Right ureteral stent with proximal tip within the contrast opacified dilated renal collecting system and distal tip within the inferior right hemipelvis. Dictated by: Darien Xiao M.D. on 01/07/2025 at 12:13 Approved by: Darien Xiao M.D. on 01/07/2025 at 12:14
[2025-01-06] MEDS: LACTATED RINGERS 1,000 ML 21 ML IV ×2 (08:32→10:21)
--- NOTE | 2025-01-06 08:43 | P.HP_ITS ---
History of Present Illness History of Present Illness Date Patient Seen: 01/06/25 Time Patient Seen: 08:43 Chief complaint: Right kidney stone Narrative: 79 y/o F returns to [facility] for a scheduled right ureteroscopy, laser lithotripsy and right ureteral stent exchange. Briefly, she developed severe right flank pain with associated nausea/vomiting on the morning of Oct 02, 2024. She also admitted to chills, urinary frequency/urgency and dysuria. She pre sented to ED for evaluation for the aforementioned symptoms. This was notable for a WBC of 16.3, a sCr of 0.96 and a UA concerning for infection. Her CT Abd/Pel w/ contrast was notable for a 1.8cm right UPJ calculus with moderate right hydronephrosis and perinephric fat stranding. She was also noted to have mild right hydroureter with periureteral fat stranding down to the level of the right UVJ. She otherwise followed up with her PCM regarding bulky appearing bilateral ovaries with multiple cystic areas and a hepatic lesion. She then underwent a cystoscopy w/ right ureteral stent placement for management of the aforementioned stone in the setting of a UTI. She has now undergone two separate right ureteroscopies with laser lithotripsy and right ureteral stent exchanges secondary to her very large stone burden. Of note, she underwent a Gynecologic procedure at in late Oct 2024. [facility] Medical History Pyelonephritis, acute COVID-19 (~12/2022) GERD (gastroesophageal reflux disease) (Unknown) Pneumonia (Unknown) Chronic cough (Unknown) Migraines (2002) Chronic back pain (Unknown) Anemia (1960) Chickenpox (1947) Herpes (1984) Measles Mumps (1951) Rubella (1951) History of recurrent ear infection (Unknown) Cataracts, bilateral (Unknown) Heavy menstrual period (Unknown) Fibroids (1978) Pancreatitis (1967) Type 2 diabetes mellitus without complication, without long-term current use of insulin (10/14/16) Pure hypercholesterolemia (10/14/16) Acquired hypothyroidism (10/14/16) Essential hypertension (10/14/16) Surgical History History of cystoscopy (11/04/24) History of cystoscopy (10/04/24) Status post delivery (1978) Family History Brother Age: 75 Hypertension Pre-diabetes Brother Age: 62 Diabetes mellitus Hypertension Child Age: 45 Pre-diabetes Mother Mental and behavioral problem Grandfather Diabetes mellitus Heart disease Hypertension Grandmother Heart disease Sister Age: 82 Diabetes mellitus Sister Age: 80 Pre-diabetes Father Diabetes mellitus Social History household members: family Smoking Status: Former smoker alcohol intake: current Meds Home Medications and Allergies Home Medications Medication Instructions Recorded Confirmed Type blood-glucose transmitter (Dexcom #1 ea 08/07/21 12/30/24 Rx G6 Transmitter device) blood-glucose meter,continuous #1 ea 09/30/22 12/30/24 Rx (Dexcom G6 [employer]osives Engineer) blood-glucose sensor (Dexcom G6 #3 ea 12/14/23 12/30/24 Rx Sensor device) albuterol sulfate 90 mcg/actuation 2 puff inhalation Q2-4H PRN 03/10/24 01/06/25 Rx aerosol inhaler shortness of breath or wheezing #6.7 grams metformin 1,000 mg tablet 1,000 mg PO BIDCC #180 tabs 07/01/24 01/06/25 Rx atorvastatin 40 mg tablet 40 mg PO HS #90 tabs 09/14/24 01/06/25 Rx lisinopril 20 1 tab PO QDAY #90 tabs 09/14/24 01/06/25 Rx mg-hydrochlorothiazide 12.5 mg tablet ibuprofen 600 mg tablet 600 mg PO Q8H PRN pain #21 tabs 10/02/24 01/06/25 Rx levothyroxine 125 mcg tablet 125 mcg PO DAILY 12/15/24 01/06/25 History (Synthroid) levofloxacin 500 mg tablet 500 mg PO DAILY #7 tabs 12/30/24 01/06/25 Rx phenazopyridine 100 mg tablet 100 mg PO TID #9 tabs 12/30/24 01/06/25 Rx (Pyridium) oxycodone 5 mg tablet 5 mg PO Q8H PRN pain #30 tabs 01/03/25 01/06/25 Rx Allergies Allergy/AdvReac Type Severity Reaction Status Date / Time No Known Drug Allergies Allergy Verified 01/06/25 08:07 Review of Systems Review of Systems Narrative: CONSTITUTIONAL: Denies weight loss, fevers, chills. HEENT: Denies change in vision, hearing. RESP: Denies SOB, cough. CV: Denies palpations, CP. GI: Denies abdominal pain, nausea, vomiting, diarrhea. : Denies dysuria, hematuria, inability to void. MSK: Denies myalgia, joint pain. SKIN: Denies rash, pruritus. NEURO: Denies headache, syncope. PSYCH: Denies recent change in mood, anxiety, depression. Exam Vital Signs (past 8 hours): - 01/06/25 08:15 Temperature 97.2 F L Pulse Rate 75 Respiratory Rate 16 Blood Pressure 104/57 L Pulse Oximetry 75 L Oxygen Delivery Method Room Air Oxygen Delivery Method Room Air Narrative Exam Narrative: GEN: Alert and oriented X3. No acute distress. Well-nourished. EYES: PERRLA, EOMI. HENT: Moist mucus membranes, no scleral icterus, normal neck ROM. RESP: Unlabored breathing, equal rise and fall of chest bilaterally, no cyanosis appreciated. CV: No peripheral edema, unremarkable heart rate. ABD: Soft, non-tender, non-distended, no palpable masses. EXT: No edema, clubbing or cyanosis. SKIN: No rashes or lesions. NEURO: No focal neurologic deficits, CN II-XII grossly intact. PSYCH: Cooperative, appropriate mood and affect. Assessment & Plan Assessment and plan (1) Right ureteral calculus: Status: Acute Plan: 79 y/o F recently diagnosed with a 1.8cm right UPJ calculus in the setting of an active urinary tract infection who underwent a cystoscopy with right ureteral stent placement on 04 Oct 2024. She has subsequently undergone two right ureteroscopies with laser lithotripsy and right ureteral stent exchanges secondary to her large stone burden and is returning today for a third right ureteroscopy, laser lithotripsy and right ureteral stent exchange. Discussed the need for a cystoscopy, right ureteroscopy, laser lithotripsy and right ureteral stent exchange for definitive stone management. Discussed risks of the procedure to include pain, bleeding, infection, injury to urethra/bladder/ureter, urinary tract infection, need for emergent open repair of bladder and/or ureter, inability to remove all of her stone burden in one setting, need for repeat procedures. Informed consent was obtained this morning. Time-Based Coding :: [TOTAL MINUTES] spent with patient and on the chart (including review of chart, obtaining history, exam, reviewing outside data, placing orders, documenting exam and treatment plan, and counseling patient) on [DATE]. [employer] Research Laboratory Manager Document charge(s): No Charge Codes Initial inpatient/observation care: 30503
[2025-01-06] MEDS: FAMOTIDINE 20 MG/2 ML VIAL IV (08:46)
[2025-01-06] MEDS: ACETAMINOPHEN 325 MG TABLET 975 MG PO (08:47)
[2025-01-06] MEDS: CEFAZOLIN 2 GM/100 ML PREMIX 100 ML IV (09:25)
--- NOTE | 2025-01-06 09:48 | SUR.OPER ---
Lithotomy on padded OR bed, head on pillow, arms secured on padded arm boards at <90 degrees abduction. Legs secured in padded yellow fins stirrups.
[2025-01-06] MEDS: iopamidoL 30 ML VIAL INJ (09:53)
--- NOTE | 2025-01-06 10:51 | PM.OP.1 ---
Procedure & Clinicians Procedure: Cystoscopy Right retrograde ureteropyelogram Right ureteroscopy, laser lithotripsy Right ureteral stent exchange Intraoperative interpretation of fluoroscopic images, total time < 1 hour Same procedure as scheduled: Yes Indications: 79 y/o F recently diagnosed with a 1.8cm right UPJ calculus in the setting of an active urinary tract infection who underwent a cystoscopy with right ureteral stent placement on 04 Oct 2024. She also underwent a right ureteroscopy with laser lithotripsy and ureteral stent exchange on 21 Oct 2024 and 04 Nov 2025. She returns today for a third-look right ureteroscopy with laser lithotripsy and right ureteral stent exchange. Surgeon: Kapil Holt Click Yes if Unassisted: Yes Anesthesia Type: General Operative Notes Findings: Significant amount of stone debris within right ureter, moderate sized stone fragment in right lower pole calyx Closure Type: not applicable Specimen(s): other (right ureteral stone) Estimated Blood Loss (mL): 2 Blood products transfused: none Procedure in detail: Procedures: 1) Cystoscopy 2) Right retrograde ureteropyelogram 3) Right ureteroscopy, laser lithotripsy 4) Right ureteral stent exchange 5) Intraoperative interpretation of fluoroscopic images, < 1 hour, all images saved to PACS Indication: Patient was identified in the preoperative holding area and consent confirmed. He was then brought to the operating room where general anesthesia was induced.? He was placed in the low lithotomy position. He was then prepped and draped in the usual sterile fashion. A surgical timeout was conducted and all were in agreement. ?Access to the bladder was obtained via a 30 degree cystoscope.? Complete cystoscopy was then performed and no concerning bladder masses or lesions were appreciated.? Bilateral ureteral orifices were easily identified and noted to be orthotopic in nature.? The previously placed right ureteral stent was easily visualized and externalized using the stent grasper.? A 0.035 sensor tip ureteral guidewire was advanced through the stent and into the right renal pelvis.? A 12/14Fr ureteral access sheath was then advanced over the ureteral guidewire and into the proximal right ureter.? The ureteral guidewire and inner obturator were then removed.? The flexible ureteroscope was then advanced through the ureteral access sheath and into the right proximal ureter where a significant amount of stone debris was encountered. This was removed via the stone basket and sent for chemical analysis.? Complete pyeloscopy was then performed and one moderate sized stone fragment was noted in her right lower pole calyx.? Laser lithotripsy was then performed utilizing the 200 micron laser fiber.? All fragments >1mm in size were removed via the stone basket and sent for chemical analysis. A retrograde pyelogram was then performed which noted no contrast extravasation.? The ureteral guidewire was then readvanced through the ureteroscope and into the right renal pelvis.? The ureter was then directly visualized upon removal of the ureteroscope and ureteral access sheath and noted to be stone free.? The cystoscope was then backloaded over the ureteral guidewire and advanced into the bladder.? A 6Fr multi-length JJ ureteral stent without strings was then advanced over the ureteral guidewire.? Upon removal of the guidewire, a good curl was noted within the right renal pelvis upon fluoroscopy and visually within the bladder.? The bladder was then drained and the cystoscope was removed.? Anesthesia was reversed, she was extubated in the OR and transferred to the PACU in stable condition for recovery. Complications: none Post-operative Condition: stable Disposition: PACU Plan for aftercare: Discharge home from PACU. Will have her return to Urology clinic on 19 Jan 2025 to have her right ureteral stent removed via cystoscopy. Will then have her return to Urology clinic 2-3 months later to discuss the results of her stone analysis and a postoperative RBUS.
--- NOTE | 2025-01-06 11:00 | SUR.OPER ---
Soltive laser machine did not have functioning emergency stop switch. Concerns regarding function of machine and patient safety addressed to charge nurse and Surgeon by oil change technician, and OR circulators. Approved to continue case per surgeon, charge nurse. We were Notified that OR supervisor fiberglass boat assembly was already in communication with service rep. During case, soltive laser machine functioned properly with no need of emergency stop switch.
[2025-01-06] MEDS: PHENAZOPYRIDINE 100 MG TABLET 200 MG PO (11:07)
[2025-01-06] MEDS: OXYBUTYNIN 5 MG TABLET PO (11:08)
[2025-01-18 11:14] LABS: Ammonium acid urate 10 % (.); Ca oxalate monohydr 60 % (.); Carbonate Apatite 10 % (.); Magnesium ammon phos 20 % (.); Size 6x3 mm (.)
== END 2025-01-06 11:40 | disposition home or self-care (01) ==
PROVIDERS: PCP Family Medicine; Referring Provider Urology; Visit Provider Urology
PROC: (CPT 52356; principal; 2025-01-06 09:15)
DX: N20.1 Calculus of ureter (principal); N39.0 Urinary tract infection, site not specified
CPT/HCPCS: 52356; 74018; 74420; 76000; 82365; 82962; C2617; J0690; J1100; J1885; J2405; J2704; J3010; J3490; Q9967

== ENCOUNTER → 2025-01-31 11:52 | Outpatient (CLI) | payer MEDICARE, SELFPAY ==
[2024-10-21 15:28] VITALS: BMI 32.7
== END ==
PROVIDERS: PCP Family Medicine; Visit Provider Family Medicine
DX: N39.0 Urinary tract infection, site not specified (principal)
CPT/HCPCS: 87086

== ENCOUNTER 2025-02-22 14:19 | Emergency (ER) | payer MEDICARE, SELFPAY ==
[2024-10-21 15:28] VITALS: BMI 32.7
[2025-02-22 14:58] VITALS: BP 118/54; PULSE 76; RESP 17; TEMP 36.8; O2SAT 96; BMI 28.3
--- NOTE | 2025-02-22 15:01 | EKG_ITS ---
[address] [address] Test Date: 2025-02-22 Pat Name: Nelly Yi Department: Room: Gender: Female Bending Machine Set Up Operator: HENRRY : 1945 Requested By: Order Number: [id number] Reading MD: Alexi Hanson MD Measurements Intervals [place] Rate: 71 P: 32 DE: 196 QRS: 18 QRSD: 86 T: 30 QT: 396 QTc: 430 Interpretive Statements Normal sinus rhythm Possible Inferior infarct , age undetermined Possible Anterior infarct , age undetermined Electronically Signed On 02-23-2025 7:40:28 PDT by Alexi Hanson MD
--- NOTE | 2025-02-22 15:03 | DI.RAD.S_ITS ---
PROCEDURE: XR CHEST 1V INDICATIONS: chest pain TECHNIQUE: One view of the chest was acquired. COMPARISON: [facility], CR, XR CHEST 1V, 10/21/2024, 12:17. [facility], CR, XR CHEST 2V, 01/15/2023, 11:11. FINDINGS: Surgical changes and devices: None. Lungs and pleura: Lungs are clear. No pleural effusions or pneumothorax. Mediastinum: Mediastinal contours appear normal. Heart size is normal. Bones and chest wall: No suspicious bony lesions. Overlying soft tissues appear unremarkable. IMPRESSION: No acute cardiopulmonary abnormality is seen. Dictated by: Yovanny Slater M.D. on 02/22/2025 at 15:51 Approved by: Yovanny Slater M.D. on 02/22/2025 at 15:52
[2025-02-22 15:34] LABS: INR 0.9 (0.9-1.3); Prothrombin Time 9.7 SECONDS (9.4-12.5)
[2025-02-22 15:37] LABS: PTT Partial Thromboplastin Tim 33 SECONDS (25.1-36.5)
[2025-02-22 15:46] LABS: Alanine Aminotransferase 32 IU/L (<35); Albumin 4.5 g/dL (3.5-5.0); Albumin Globulin Ratio 1.6 (1.0-2.8); Alkaline Phosphatase 67 U/L (38-126); Aspartate Aminotransferase 30 IU/L (14-36); BUN Creatinine Ratio 23.5 (6-22); Bilirubin Total 0.5 mg/dL (0.2-1.3); Blood Urea Nitrogen 24 mg/dL (7-17); Calcium 9.8 mg/dL (8.4-10.2); Carbon Dioxide 20 mmol/L (22-32); Chloride 104 mmol/L (98-107); Creatine Kinase 43 U/L (30-135); Estimated Glomerular Filt Rate 56 mL/min (>60); Globulin 2.8 g/dL (1.7-4.1); Glucose 124 mg/dL (80-110); HEMOLYSIS 22 (0-50); Lipase 170 U/L (23-300); Magnesium 1.7 mg/dL (1.6-2.3); Potassium 4.3 mmol/L (3.4-5.1); Sodium 138 mmol/L (137-145); Total Protein 7.3 g/dL (6.3-8.2)
[2025-02-22 15:53] LABS: Add Manual Diff / Slide Review NO; Basophils Absolute Auto 100 /uL (0-100); Eosinophils Absolute Auto 1600 /uL (0-450); Hematocrit 38.4 % (36-46); Hemoglobin 12.9 g/dL (12.0-16.0); Lymphocytes Absolute Auto 2600 /uL (1100-4500); Lymphocytes Percent Auto 25.3 % (25-40); Mean Corpuscular HGB Conc 33.5 % (30-36); Mean Corpuscular Hemoglobin 30.6 PG (26-34); Mean Corpuscular Volume 91.4 fL (80-100); Monocytes Absolute Auto 600 /uL (0-900); Monocytes Percent Auto 5.7 % (3-14); Neutrophils Absolute Auto 5500 /uL (1500-7000); Platelet Count 190 X10^3/uL (150-400); Red Cell Distribution Width 14.2 % (11.6-14.8); White Blood Cell Count 10.4 X10^3/uL (4.5-11.0)
[2025-02-22 15:58] LABS: NT-proBNP (BNP-Adult 18+) < 20 pg/mL (<450); Troponin I < 0.012 ng/mL (0.01-0.034)
--- NOTE | 2025-02-22 17:29 | ED.DIZZY ---
HPI - Dizziness <Tari Jaimes PA-C - Last Filed: 02/22/25 19:32> General Chief Complaint: Dizziness Stated Complaint: sent by PCP, high glucose Time Seen by Provider: 02/22/25 16:55 Source: patient Mode of arrival: Family Vehicle History of Present Illness HPI Narrative: Ms. Yi is a pleasant 80-year-old female with a past medical history of diabetes on metformin, hypothyroidism, hypertension who presents to the emergency department with her daughter for concerns of elevated blood glucose and dizziness. Patient takes metformin for her diabetes, her daughter helps with her medications. States that Thursday morning and this morning when she woke up she felt sensation of being off balance her daughter checked her blood glucose and it read as ?high?. They checked it multiple times and it continued saying ?high?. They called their PCP office who advised to come to the emergency department. At this time patient states that she is only very mildly dizzy, which she reports as occasional feeling of off balance. States that she occasionally gets episodes of dizziness in the past however it has been slightly worse today than normal so they were concerned it was related to her glucose. Her blood glucose was checked in the emergency department is found to be in the 120s range. Reports chronic bilateral tinnitus. She denies headache, visual disturbance, chest pain, shortness of breath, abdominal pain, nausea, vomiting, diarrhea, dysuria, numbness, tingling, weakness. States she does feel like her ears are clogged. Related Data Home Medications Medication Instructions Recorded Confirmed levothyroxine 125 mcg tablet 125 mcg PO DAILY 12/15/24 02/09/25 (Synthroid) Previous Rx's Medication Instructions Recorded blood-glucose transmitter (Dexcom #1 ea 08/07/21 G6 Transmitter device) blood-glucose meter,continuous #1 ea 09/30/22 (Dexcom G6 Circus Laborer) blood-glucose sensor (Dexcom G6 #3 ea 12/14/23 Sensor device) albuterol sulfate 90 mcg/actuation 2 puff inhalation Q2-4H PRN 03/10/24 aerosol inhaler shortness of breath or wheezing #6.7 grams metformin 1,000 mg tablet 1,000 mg PO BIDCC #180 tabs 07/01/24 atorvastatin 40 mg tablet 40 mg PO HS #90 tabs 09/14/24 lisinopril 20 1 tab PO QDAY #90 tabs 09/14/24 mg-hydrochlorothiazide 12.5 mg tablet ibuprofen 600 mg tablet 600 mg PO Q8H PRN pain #21 tabs 10/02/24 phenazopyridine 100 mg tablet 100 mg PO TID #9 tabs 12/30/24 (Pyridium) oxycodone 5 mg tablet 5 mg PO Q8H PRN pain #30 tabs 01/03/25 oxycodone 5 mg tablet 5 mg PO Q8H PRN pain (scale score 01/06/25 7-10) #10 tabs tamsulosin 0.4 mg capsule 0.4 mg PO DAILY #14 caps 01/06/25 sulfamethoxazole 800 1 tab PO BID #20 tabs 01/31/25 mg-trimethoprim 160 mg tablet (Bactrim DS) Allergies Allergy/AdvReac Type Severity Reaction Status Date / Time No Known Drug Allergies Allergy Verified 02/22/25 15:05 Review of Systems <Tari Jaimes PA-C - Last Filed: 02/22/25 19:32> Review of Systems ROS Unobtainable: All systems reviewed & are unremarkable except as noted in HPI and below Patient History <Tari Jaimes PA-C - Last Filed: 02/22/25 19:32> Medical History Pyelonephritis, acute COVID-19 (~12/2022) GERD (gastroesophageal reflux disease) (Unknown) Pneumonia (Unknown) Chronic cough (Unknown) Migraines (2002) Chronic back pain (Unknown) Anemia (1960) Chickenpox (1947) Herpes (1984) Measles Mumps (1951) Rubella (1951) History of recurrent ear infection (Unknown) Cataracts, bilateral (Unknown) Heavy menstrual period (Unknown) Fibroids (1978) Pancreatitis (1967) Type 2 diabetes mellitus without complication, without long-term current use of insulin (10/14/16) Pure hypercholesterolemia (10/14/16) Acquired hypothyroidism (10/14/16) Essential hypertension (10/14/16) Surgical History History of cystoscopy (11/04/24) History of cystoscopy (10/04/24) Status post delivery (1978) Family History Brother Age: 75 Hypertension Pre-diabetes Brother Age: 62 Diabetes mellitus Hypertension Child Age: 45 Pre-diabetes Mother Mental and behavioral problem Grandfather Diabetes mellitus Heart disease Hypertension Grandmother Heart disease Sister Age: 82 Diabetes mellitus Sister Age: 80 Pre-diabetes Father Diabetes mellitus Social History household members: family Smoking Status: Former smoker alcohol intake: current Smoking Status: Former smoker tobacco type: cigarettes alcohol intake frequency: holidays/special occasions only Exam <Tari Jaimes PA-C - Last Filed: 02/22/25 19:32> Narrative Exam Narrative: GENERAL: 80 year old patient appears stated age. Well-developed patient, in no acute distress. Very pleasant, joking. HEAD: Atraumatic. Normocephalic. EYES: PERRL. Extraocular motions intact. No scleral icterus. No injection or drainage. Occasional rightward beat of nystagmus but not easily reproducible. ENT: Bilateral cerumen impactions. Nose without bleeding, purulent drainage. Throat without erythema, tonsillar hypertrophy or exudate. Airway patent. NECK: Trachea midline. Cervical ROM intact. CARDIOVASCULAR: Regular rate and rhythm. RESPIRATORY: ?Nonlabored respirations. ?Speaking in clear, full sentences. ?Clear to auscultation. Breath sounds equal bilaterally. No wheezes, rales, or rhonchi. ? GASTROINTESTINAL: Abdomen soft, non-tender, nondistended. EXTREMITIES: No edema or joint tenderness. BACK: Nontender without deformity or crepitance. No flank tenderness. NEURO: Alert to person, place, time, location. Occasionally forgetful and relies on daughter for answering some questions. Clear speech. ?Moves all 4 extremities appropriately. No pronator drift. Normal [id number], rapid alternating movements, heel-myles. Bilateral upper and lower extremity strength intact. Sensation intact to light touch throughout the face and body. No facial asymmetry. SKIN: No rash or erythema of visible areas Initial Vital Signs Initial Vital Signs: Vital Signs Temperature 98.3 F 02/22/25 14:58 Pulse Rate 76 02/22/25 14:58 Respiratory Rate 17 02/22/25 14:58 Blood Pressure 118/54 L 02/22/25 14:58 Pulse Oximetry 96 02/22/25 14:58 Oxygen Delivery Method Room Air 02/22/25 14:58 <Thea Nguyen DO - Last Filed: 02/23/25 01:35> Initial Vital Signs Initial Vital Signs: Vital Signs Temperature 98.3 F 02/22/25 14:58 Pulse Rate 76 02/22/25 14:58 Respiratory Rate 17 02/22/25 14:58 Blood Pressure 118/54 L 02/22/25 14:58 Pulse Oximetry 96 02/22/25 14:58 Oxygen Delivery Method Room Air 02/22/25 14:58 Procedures <MALOU Gomez Last Filed: 02/22/25 19:32> Ear Wax Removal Both Ears: Time of procedure: 19:31 Cerumenolytic Used: other (warm water & hydrogen peroxide) Results: Re-examined: cerumen removed completely TM Examination: TM(s) intact, normal appearance Ear Canal Exam: atraumatic Patient Tolerated Procedure: Well Complications: no problems Technique: ear canal irrigated and ear canal curetted Course <MALOU Gomez Last Filed: 02/22/25 19:32> Orders Ordered: ED Orders 02/22/25 17:50 Ictotest Urine Stat Troponin I Stat Urine Culture Stat Urine Microscopic Stat Discontinued Medications Aspirin (Aspirin 81 Mg Chew Tab) 324 mg PO NOW ONE Stop: 02/22/25 15:04 Last Admin: 02/22/25 15:09 Dose: Not Given Documented By: SO Meclizine HCl (Meclizine Hcl 12.5 Mg Tablet) 25 mg PO NOW ONE Stop: 02/22/25 18:10 Last Admin: 02/22/25 18:38 Dose: 25 mg Documented By: BERLIN Vital Signs Vital signs: Vital Signs - 8 hr 02/22/25 19:39 Pulse Rate 65 Respiratory Rate 16 Blood Pressure 127/56 L Pulse Oximetry 95 Oxygen Delivery Method Room Air <Thea Nguyen DO - Last Filed: 02/23/25 01:35> Orders Ordered: ED Orders 02/22/25 17:50 Ictotest Urine Stat Troponin I Stat Urine Culture Stat Urine Microscopic Stat Discontinued Medications Aspirin (Aspirin 81 Mg Chew Tab) 324 mg PO NOW ONE Stop: 02/22/25 15:04 Last Admin: 02/22/25 15:09 Dose: Not Given Documented By: SO Meclizine HCl (Meclizine Hcl 12.5 Mg Tablet) 25 mg PO NOW ONE Stop: 02/22/25 18:10 Last Admin: 02/22/25 18:38 Dose: 25 mg Documented By: BERLIN Vital Signs Vital signs: Vital Signs - 8 hr 02/22/25 19:39 Pulse Rate 65 Respiratory Rate 16 Blood Pressure 127/56 L Pulse Oximetry 95 Oxygen Delivery Method Room Air MDM - Dizziness <Tari Jaimes PA-C - Last Filed: 02/22/25 19:32> Medical Records Attestation: I reviewed the patient's medical records. Lab Data 02/22/25 15:15 02/22/25 15:15 Labs: Lab Results 02/22/25 02/22/25 Range/Units 15:15 17:50 WBC 10.4 (4.5-11.0) X10^3/uL RBC 4.20 (4.0-5.2) X10^6/uL Hgb 12.9 (12.0-16.0) g/dL Hct 38.4 (36-46) % MCV 91.4 (80-100) fL MCH 30.6 (26-34) PG MCHC 33.5 (30-36) % RDW 14.2 (11.6-14.8) % Plt Count 190 (150-400) X10^3/uL Neut % (Auto) 53.0 (50-75) % Lymph % (Auto) 25.3 (25-40) % [place] % (Auto) 5.7 (3-14) % Eos % (Auto) 15.0 H (2-4) % Baso % (Auto) 1.0 (0-2) % Neut # (Auto) 5500 (5137-5345) /uL Lymph # (Auto) 2600 (7893-7645) /uL [place] # (Auto) 600 (0-900) /uL Eos # (Auto) 1600 H (0-450) /uL Baso # (Auto) 100 (0-100) /uL PT 9.7 (9.4-12.5) SECONDS INR 0.9 (0.9-1.3) APTT 33 (25.1-36.5) SECONDS Sodium 138 (137-145) mmol/L Potassium 4.3 (3.4-5.1) mmol/L Chloride 104 (98-107) mmol/L Carbon Dioxide 20 L (22-32) mmol/L BUN 24 H (7-17) mg/dL Creatinine 1.02 (0.52-1.04) mg/dL Estimated GFR 56 L (>60) mL/min BUN/Creatinine Ratio 23.5 H (6-22) Glucose 124 H (80-110) mg/dL Calcium 9.8 (8.4-10.2) mg/dL Magnesium 1.7 (1.6-2.3) mg/dL Total Bilirubin 0.5 (0.2-1.3) mg/dL AST 30 (14-36) IU/L ALT 32 (<35) IU/L Alkaline Phosphatase 67 (38-126) U/L Total Creatine Kinase 43 (30-135) U/L Troponin I < 0.012 < 0.012 (0.01-0.034) ng/mL NT-Pro-B Natriuret Pep < 20 (<450) pg/mL Total Protein 7.3 (6.3-8.2) g/dL Albumin 4.5 (3.5-5.0) g/dL Globulin 2.8 (1.7-4.1) g/dL Albumin/Globulin Ratio 1.6 (1.0-2.8) Lipase 170 (23-300) U/L Ur Bilirubin Confirm Negative (Negative) Urine RBC None seen (0-5/HPF) Urine WBC 1-5/hpf (0-5/HPF) Ur Squamous Epith Cells 0-1 /hpf (0-5/HPF) Urine Bacteria None seen (None) Vol Urine Centrifuged 10ml (spun) Point of Care Testing Glucose POC 114 Urine Dip Bedside Urine Glucose Negative Bedside Urine Bilirubin + 1 Bedside Urine Ketone - Negative Urine Specific [place] 1.025 Bedside Urine Occult Blood +/- Bedside Urine pH 6 Bedside Urine Protein - Negative Bedside Urine Urobilinogen - Negative Bedside Urine Nitrite - Negative Bedside Urine Leukocytes + 70 Esterase Imaging Data Chest x-ray: Radiologist's Impression: PROCEDURE: XR CHEST 1V INDICATIONS: chest pain TECHNIQUE: One view of the chest was acquired. COMPARISON: [facility], CR, XR CHEST 1V, 10/21/2024, 12:17. [facility], CR, XR CHEST 2V, 01/15/2023, 11:11. FINDINGS: Surgical changes and devices: None. Lungs and pleura: Lungs are clear. No pleural effusions or pneumothorax. Mediastinum: Mediastinal contours appear normal. Heart size is normal. Bones and chest wall: No suspicious bony lesions. Overlying soft tissues appear unremarkable. IMPRESSION: No acute cardiopulmonary abnormality is seen. MDM Narrative Medical decision making narrative: 80-year-old female with a past medical history of diabetes on metformin, hypothyroidism, hypertension who presents to the emergency department with her daughter for concerns of elevated blood glucose and dizziness. POC glucose 114. Differential diagnosis includes but isn't limited to hyperglycemia, hypoglycemia, vertigo, cerumen impaction, labyrinthitis, Meniere's disease, electrolyte abnormality, dehydration, intracerebral abnormality, etc. On exam the patient is in no acute distress, nontoxic appearing, vital signs appropriate and blood glucose appropriate. Patient has intermittent episodes of feeling off-balance, blood glucose read as high at home so they attributed this to glucose however normal glucose in the emergency department. States that her dizziness is pretty much resolved but she does somewhat have some mild dizziness. Chest x-ray and dizziness lab work was obtained prior to my evaluation revealing normal chest x-ray, normal WBC count 10.4, BUN 24, creatinine 1.02 improved from priors. Glucose 124. Negative troponin x2. Negative BNP. UA without signs of infection. ECG reveals a rate of 71, QTC of 430, normal sinus rhythm. Physical exam reveals no focal neurologic deficits. She does have occasional rightward beat of nystagmus however was unable to reproduce this. She does have bilateral cerumen impactions. Discussed adding on meclizine, remove cerumen impactions, CT imaging of head and CTA head and neck. However patient and daughter declined CT imaging of head at this time as patient states that she is feeling much better and would like to avoid additional studies. After receiving both meclizine and having bilateral cerumen impactions removed, patient states that she has no longer dizzy and feeling much better. We discussed strict ED return precaution advised follow up with PCP. Patient verbalized understanding of all information is agreeable to the plan. She is stable for discharge home. <Thea Nguyen, DO - Last Filed: 02/23/25 01:35> Lab Data Labs: Lab Results 03/26/25 03/26/25 Range/Units 15:15 17:50 WBC 10.4 (4.5-11.0) X10^3/uL RBC 4.20 (4.0-5.2) X10^6/uL Hgb 12.9 (12.0-16.0) g/dL Hct 38.4 (36-46) % MCV 91.4 (80-100) fL MCH 30.6 (26-34) PG MCHC 33.5 (30-36) % RDW 14.2 (11.6-14.8) % Plt Count 190 (150-400) X10^3/uL Neut % (Auto) 53.0 (50-75) % Lymph % (Auto) 25.3 (25-40) % [place] % (Auto) 5.7 (3-14) % Eos % (Auto) 15.0 H (2-4) % Baso % (Auto) 1.0 (0-2) % Neut # (Auto) 5500 (3121-1374) /uL Lymph # (Auto) 2600 (3551-5139) /uL [place] # (Auto) 600 (0-900) /uL Eos # (Auto) 1600 H (0-450) /uL Baso # (Auto) 100 (0-100) /uL PT 9.7 (9.4-12.5) SECONDS INR 0.9 (0.9-1.3) APTT 33 (25.1-36.5) SECONDS Sodium 138 (137-145) mmol/L Potassium 4.3 (3.4-5.1) mmol/L Chloride 104 (98-107) mmol/L Carbon Dioxide 20 L (22-32) mmol/L BUN 24 H (7-17) mg/dL Creatinine 1.02 (0.52-1.04) mg/dL Estimated GFR 56 L (>60) mL/min BUN/Creatinine Ratio 23.5 H (6-22) Glucose 124 H (80-110) mg/dL Calcium 9.8 (8.4-10.2) mg/dL Magnesium 1.7 (1.6-2.3) mg/dL Total Bilirubin 0.5 (0.2-1.3) mg/dL AST 30 (14-36) IU/L ALT 32 (<35) IU/L Alkaline Phosphatase 67 (38-126) U/L Total Creatine Kinase 43 (30-135) U/L Troponin I < 0.012 < 0.012 (0.01-0.034) ng/mL NT-Pro-B Natriuret Pep < 20 (<450) pg/mL Total Protein 7.3 (6.3-8.2) g/dL Albumin 4.5 (3.5-5.0) g/dL Globulin 2.8 (1.7-4.1) g/dL Albumin/Globulin Ratio 1.6 (1.0-2.8) Lipase 170 (23-300) U/L Ur Bilirubin Confirm Negative (Negative) Urine RBC None seen (0-5/HPF) Urine WBC 1-5/hpf (0-5/HPF) Ur Squamous Epith Cells 0-1 /hpf (0-5/HPF) Urine Bacteria None seen (None) Vol Urine Centrifuged 10ml (spun) Point of Care Testing Glucose POC 114 Urine Dip Bedside Urine Glucose Negative Bedside Urine Bilirubin + 1 Bedside Urine Ketone - Negative Urine Specific [place] 1.025 Bedside Urine Occult Blood +/- Bedside Urine pH 6 Bedside Urine Protein - Negative Bedside Urine Urobilinogen - Negative Bedside Urine Nitrite - Negative Bedside Urine Leukocytes + 70 Esterase Discharge Plan Departure Patient Disposition: Home Clinical Impression: Dizziness, nonspecific, Bilateral impacted cerumen Instructions: DI for Vertigo, DI for Dizziness-Nonvertigo Activity Restrictions/Additional Instructions: Dear Ms. Yi, Thank you for coming to the emergency department. Today you were evaluated for intermittent episodes of dizziness and elevated blood glucose at home. Luckily your blood sugars have been normal in the emergency department, so it is likely that your home glucometer may be not working correctly. You did have ear wax impactions in both ears which I removed. Overall your lab work was extremely reassuring and your chest x-ray was normal. Your symptoms could be due to vertigo, an inner ear abnormality, or and other underlying abnormality so it is important to follow up with your primary care doctor. Please return to the emergency department if you develop any new or worsening symptoms, severe dizziness, vomiting, visual disturbance, numbness tingling or weakness or other concerns. Please follow up with your primary care doctor within the next 2-3 days for ER follow-up. (If you do not have a PCP you can call [phone]. ?to schedule an appointment with an [facility] Primary Care Provider) IF YOU DEVELOP ANY NEW OR WORSENING SYMPTOMS, RETURN TO THE ER! Please read the attached instructions, they highlight more specific treatments and interventions for you at home. Thank you for letting me participate in your care, Tari Jaimes PA-C Prescriptions: No Action (DME) Dexcom G6 Transmitter Device See Rx Instructions .Route Qty: 1 3RF Rx Instructions: As directed (DME) Dexcom G6 Circus Laborer Misc See Rx Instructions .Route Qty: 1 0RF Rx Instructions: As directed (DME) Dexcom G6 Sensor Device See Rx Instructions .Route Qty: 3 11RF Rx Instructions: As directed metformin 1,000 mg tablet 1,000 mg PO BIDCC Qty: 180 3RF lisinopril-hydrochlorothiazide 20-12.5 mg tablet 1 tab PO QDAY Qty: 90 3RF atorvastatin 40 mg tablet 40 mg PO HS Qty: 90 3RF oxycodone 5 mg tablet 5 mg PO Q8H PRN (Reason: pain) Qty: 30 0RF albuterol sulfate 90 mcg/actuation HFA aerosol inhaler 2 puff inhalation Q2-4H PRN (Reason: shortness of breath or wheezing) Qty: 6.7 11RF phenazopyridine [Pyridium] 100 mg tablet 100 mg PO TID Qty: 9 0RF sulfamethoxazole-trimethoprim [Bactrim DS] 800-160 mg tablet 1 tab PO BID Qty: 20 0RF levothyroxine [Synthroid] 125 mcg tablet 125 mcg PO DAILY ibuprofen 600 mg tablet 600 mg PO Q8H PRN (Reason: pain) Qty: 21 0RF oxycodone 5 mg tablet 5 mg PO Q8H PRN (Reason: pain (scale score 7-10)) Qty: 10 0RF tamsulosin 0.4 mg capsule 0.4 mg PO DAILY Qty: 14 0RF Referrals: Chapo Light DO [Primary Care Provider] - Stand Alone Forms: Patient Portal/API/Survey ED Sign-out <Thea Nguyen DO - Last Filed: 02/23/25 01:35> Cosign ED Attending Brian Attestation: I was available for consultation.
[2025-02-22 18:16] LABS: Ictotest Urine Negative (Negative)
[2025-02-22 18:22] LABS: Troponin I < 0.012 ng/mL (0.01-0.034)
[2025-02-22 18:25] LABS: Bacteria Urine None Seen; RBC Urine None Seen (0-5/HPF); Squamous Epithelial Cell Urine 0-1 /HPF (0-5/HPF); Urine Volume 10mL (spun); WBC Urine 1-5/HPF (0-5/HPF)
[2025-02-22] MEDS: MECLIZINE HCL 12.5 MG TABLET 25 MG PO (18:38)
--- NOTE | 2025-02-22 19:34 | PC.NURSE ---
Pt reports positional dizziness (i.e., w/ exertion). Stats her dizziness has gotten better while she has been in ER. Pt confused on timelines/dates; seems w/ family this is baseline. Pt is prone to UTI per family. Pt able to do finger to nose tracking w/o difficulty. Sensations equal and intact. Pt able to ambulate w/o issue. Pt denies history of vertigo but family states this is not true and states she recently had vertigo spell within his past week. Ear wax build up in both ears; worse in left--pt admits to q tip use--pt educated on risks w/ qtips and given alternative methods for ear wax removal. Radiology Receptionist strength equal and strong. Pt family also states at home it was noted her sugar was reading HI. Pt family states they tried taking her blood sugar 7 times and ensured a clean finger but states pt was still HI and dizzy; nurse advice line at PCP stated to come to ER---while at ER sugars have been well controlled. Pt family states pt only takes metformin for diabetes and no insulin.
[2025-02-22 19:39] VITALS: BP 127/56; PULSE 65; RESP 16; O2SAT 95
== END 2025-02-22 19:40 | disposition home or self-care (01) ==
PROVIDERS: Emergency Medicine; Emergency Provider Physician Assistant; PCP Family Medicine
DX: R42 Dizziness and giddiness (principal); H61.23 Impacted cerumen, bilateral; R07.9 Chest pain, unspecified; Z79.84 Long term (current) use of oral hypoglycemic drugs
CPT/HCPCS: 36415; 69209; 71045; 80053; 81003; 81015; 82550; 82962; 83690; 83735; 83880; 84484; 85025; 85610; 85730; 87086; 93005; 93010; 99283; 99284

== ENCOUNTER → 2025-08-25 15:40 | Outpatient (CLI) | payer MEDICARE, SELFPAY ==
[2024-10-21 15:28] VITALS: BMI 32.7
--- NOTE | 2025-08-25 15:43 | DI.RAD.S_ITS ---
PROCEDURE: XR KUB INDICATIONS: 79 y/o F w/ h/o nephrolithiasis TECHNIQUE: One view of the abdomen acquired. COMPARISON: [facility], CR, XR KUB, 12/28/2024, 15:47. FINDINGS: Surgical changes and devices: There is interval removal of previously noted right-sided ureteral stent. Bowel: Moderate fecal stasis throughout the colon is seen. No pneumoperitoneum. Soft tissues: No suspicious abdominal calcifications. Visualized solid organ contours appear normal in size. Bones: No suspicious bony lesions. IMPRESSION: No gross renal calcifications are seen. Interval removal of right-sided ureteral stent. Moderate constipation, no gross free air. Dictated by: Victorino Barnett M.D. on 08/26/2025 at 15:05 Approved by: Victorino Barnett M.D. on 08/26/2025 at 15:06
== END ==
PROVIDERS: PCP Family Medicine; Referring Provider Urology; Visit Provider Urology
DX: K59.00 Constipation, unspecified (principal); Z87.442 Personal history of urinary calculi
CPT/HCPCS: 74018

== ENCOUNTER → 2025-10-11 11:10 | Outpatient (CLI) | payer MEDICARE, SELFPAY ==
[2024-10-21 15:28] VITALS: BMI 32.7
[2025-10-11 19:42] LABS: Microalbumi Creatinin Ratio Ur 152.0 ug/mg CR (<30)
== END ==
PROVIDERS: PCP Family Medicine; Visit Provider Family Medicine
DX: E11.9 Type 2 diabetes mellitus without complications (principal)
CPT/HCPCS: 82043; 82570